=== PATIENT | male | born 1950 | race Caucasian/White ===

== ENCOUNTER → 2019-10-14 14:50 | Outpatient (BNVA) | payer OTHER, SELFPAY | PROVIDERS: Family Provider Nurse Practitioner Family; Visit Provider Specialist | DX: G40.209 Localization-related (focal) (partial) symptomatic epilepsy and epileptic syndromes with complex partial seizures, not intractable, without status epilepticus (principal); Z87.891 Personal history of nicotine dependence | CPT/HCPCS: 99214 ==

== ENCOUNTER 2020-10-13 13:08 | Inpatient (IN) | payer OTHER, MEDICARE, SELFPAY ==
[2020-10-13] VITALS (17 sets, daily range): BP systolic 97–153; BP diastolic 61–108; PULSE 72–100; RESP 14–21; TEMP 36.4–37.1; O2SAT 89–96; BMI 31.8
--- NOTE | 2020-10-13 13:38 | PM.HP ---
Providers/Chief Complaint Admitting Physician: James López MD Primary Care Provider: Gonzalo Linares ANP Chief Complaint: SEIZURES History of Present Illness Orion Varghese is a 70 year old male who presented to an outside emergency department in [place] with confusion. According to she found him this morning by the refrigerator, staring. She reported this behavior continued about 45 minutes until he decided to come to the emergency department. She does not remember any seizures earlier than this. The emergency department physician at [place] and told me she thought he had some staring episodes at other times but she did not vocalize this to me. She believes his last seizure may have been over a year ago. She believes he is compliant with medication he is prescribed, but cannot tell me what medication he is on. He has had no recent fevers. He has had no vomiting. He has had no exposure to Covid. While in the emergency department at [place] he perhaps had 3 more episodes manifested by jaw clenching, repetitive mouth movements, staring and confusion. He has not yet returned to normal. Patient cannot give any kind of adequate history himself. reports he drinks several mixed drinks a day, but potentially drank quite a bit more last night after going out with friends. Review of Systems General: Reports: ROS unobtainable due to mental status (Unable to obtain from the patient currently secondary to confusion) Medications/Allergies Home Medications Medication Instructions Recorded Confirmed Last Taken Type amlodipine 5 mg tablet 5 mg PO DAILY 10/14/19 10/14/19 Unknown History apixaban 5 mg tablet 5 mg PO BID 10/14/19 10/14/19 Unknown History budesonide-formoterol HFA 160 2 puff INHALATION BID 10/14/19 10/14/19 Unknown History mcg-4.5 mcg/actuation aerosol inhaler flecainide 50 mg tablet 50 mg PO Q12H 10/14/19 10/14/19 Unknown History levothyroxine 88 mcg capsule 88 mcg PO DAILY 10/14/19 10/14/19 Unknown History lisinopril 20 mg tablet 20 mg PO BID 10/14/19 10/14/19 Unknown History lorazepam 2 mg/mL oral concentrate 2 mg SUBLINGUAL DAILY PRN #30 ml 10/14/19 10/14/19 Unknown Rx melatonin 3 mg capsule 3 mg PO DAILY 10/14/19 10/14/19 Unknown History metoprolol tartrate 50 mg tablet 50 mg PO BID 10/14/19 10/14/19 Unknown History naproxen 500 mg tablet,delayed 500 mg PO BID 10/14/19 10/14/19 Unknown History release sildenafil 100 mg tablet 100 mg PO DAILY PRN 10/14/19 10/14/19 Unknown History levetiracetam 750 mg tablet 1,500 mg PO BID #120 tab 11/18/19 Unknown Rx zonisamide 100 mg capsule 400 mg PO DAILY #120 cap 11/18/19 Unknown Rx Allergies Allergy/AdvReac Type Severity Reaction Status Date / Time No Known Allergies Allergy Verified 10/14/19 15:14 PFSH Acute PFSH: Medical History (Updated 10/13/20 @ 13:57 by James López MD) Atrial fibrillation COPD (chronic obstructive pulmonary disease) Focal epilepsy with impairment of consciousness Hypertension Hypothyroidism Mild cognitive impairment Secondarily generalized seizures Surgical History (Updated 10/13/20 @ 13:44 by James López MD) History of hernia repair Family History Other Cancer Social History (Updated 10/13/20 @ 13:44 by James López MD) Smoking and tobacco status: former smoker Alcohol intake: current Alcohol intake frequency: 0-2 Drinks per Day Alcohol type: hard liquor Physical Exam Narrative: EXAM NARRATIVE: General exam is a white male, confused but in no obvious distress HEENT: Pupils equally round. Oropharynx clear Neck is supple no lymphadenopathy or thyromegaly Cardiovascular regular rate and rhythm, no murmur Lungs clear no wheezing or crackles Abdomen is soft. Positive bowel sounds. Large midline hernia. No obvious organomegaly was deferred Extremities no cyanosis clubbing or edema, cap refill brisk Skin no rash Neuro: Difficulty following directions. This is limited. However, moves all 4 extremities and no obvious focal deficits. Confusion noted. Data : 10/13/20 14:20 10/13/20 14:20 Other data: He reportedly has had a CT of his head which is negative for any acute changes or bleeding Hemoglobin 19.7, platelets 177, white blood cell count 11.3, LFTs normal, calcium 9.9, creatinine 1.7, potassium 4.9, sodium 139, rapid Covid negative A&P Assessment and plan (1) Focal epilepsy with impairment of consciousness: He apparently had onset of seizure this morning. He has had no generalized shaking however consciousness has been impaired and he has not returned to baseline and has had several episodes concerning for status. At this time it is unknown if he is compliant with his seizure medications. Alcohol intake last night could have also reduce seizure threshold. Initiate Keppra IV 1000 mg every 12 hours Initiate Depacon IV x1 dose. Neurology consultation. They will determine if medicines above will be continued, and if Depacon should be continued or transition back to [facility]. As far as knows he has been compliant with his medication, but he manages all of this himself. Status: Acute (2) Polycythemia: Hemoglobin and hematocrit high at outlying hospital. May be lab error or hemoconcentration. Will repeat. He does have a past history of smoking, and if significantly elevated could consider ABG. Status: Acute (3) Atrial fibrillation: Exam is consistent with sinus rhythm. Check EKG for baseline heart rate. Hold anticoagulation until determination if any procedures are needed Evaluate home medicine list to determine if he is still on flecainide for atrial fibrillation Status: Acute (4) COPD (chronic obstructive pulmonary disease): DuoNeb as needed Status: Acute Additional A&P Information Hypothyroidism, check TSH Hypertension, continue home medications Full code Is on Eliquis, presumably for A. fib. SCDs for DVT prophylaxis currently until I am sure no procedure will be needed and then Eliquis will resume. Attestations Medical Necessity Statement*: Will need greater than 2 midnight stay for evaluation and treatment of seizure disorder with status. Time Spent in Patient Care: Greater than 35 minutes Critical Care Time: The high probability of a clinically significant, sudden or life threatening deterioration of the patient's [neurologic, hematologic] system(s) required my full and direct attention, intervention and personal management. The critical care time is as shown. This time is in addition to time spent performing any reported procedures but includes the following: [x] Data and vital sign review and interpretation [x] Patient assessment, examination and intervention [x] Documentation [x] Medication orders and management Critical Care Time (min): 42 Coding Level of Care Code Acute Regional Safety Manager for [facility] Diagnoses Focal epilepsy with impairment of consciousness G40.209 Polycythemia D75.1 Atrial fibrillation I48.91 COPD (chronic obstructive pulmonary disease) J44.9
--- NOTE | 2020-10-13 13:50 | ECG_ITS ---
[facility] Test Date: 2020-10-13 Pat Name: Orion Varghese Department: Room: [facility] Gender: Male Catering Sales Manager: : 1950 Requested By: James Griffith Order Number: [id number] Kevin MD: Destiny Bryan M.D. Measurements Intervals [place] Rate: 98 P: -19 LA: 149 QRS: 73 QRSD: 117 T: 62 QT: 351 QTc: 449 Interpretive Statements SINUS RHYTHM WITH OCCASIONAL SUPRAVENTRICULAR PREMATURE COMPLEXES MODERATE INTRAVENTRICULAR CONDUCTION DELAY [110+ ms QRS DURATION] No previous ECG available for comparison Electronically Signed On 10-13-2020 19:27:16 CDT by Destiny Bryan M.D. [id number]
[2020-10-13] MEDS: sodium chloride 0.9% 1,000 ML 75 ML IV (13:52)
[2020-10-13] MEDS: valproic acid inj 1,000 MG in sodium chloride 0.9% 50 ML 55 MG IV (13:57)
[2020-10-13 14:44] LABS: Basophils % 0.3 %; Eosinophils # 0.1 10^3/uL (0.0-0.8); Eosinophils % 0.5 %; Hematocrit 57.4 % (42.0-52.0); Hemoglobin 18.8 g/dL (11.7-16.6); Lymphocytes # 0.8 10^3/uL (0.8-4.8); Lymphocytes % 7.7 %; Mean Corpuscular HGB Conc 32.8 g/dL (30.0-36.0); Mean Corpuscular Hemoglobin 31.1 pg (28.0-34.0); Mean Platelet Volume 10.1 fL (7.4-10.4); Monocytes # 0.9 10^3/uL (0.2-0.9); Monocytes % 9.1 %; Neutrophils # 8.39 10^3/uL (1.8-7.7); Nucleated Red Blood Cells % 0 %; Platelet Count 174 10^3/cmm (130-400); Red Blood Count 6.04 10^6/uL (4.1-5.3); Red Cell Distribution Width 13.8 % (12.1-15.1); White Blood Count 10.2 10^3/uL (4.0-10.0)
[2020-10-13 16:00] LABS: Alanine Aminotransferase 21 U/L (0-41); Albumin Level 4.3 g/dL (3.5-5.2); Alkaline Phosphatase 74 IU/L (40-130); Anion Gap 13.3 (5-19); Aspartate Amino Transferase 18 U/L (0-40); Blood Urea Nitrogen 23 mg/dL (8-23); Calcium 9.2 mg/dL (8.5-10.5); Carbon Dioxide 24 mmol/L (22-29); Chloride 104 mmol/L (98-107); Globulin 2.7 g/dL (1.3-4.6); Glomerular Filtration Rate 50.2 mL/min (90-130); Glucose 108 mg/dL (65-115); Osmolality Calculated 288 mOsm/kg (285-295); Potassium 4.3 mmol/L (3.5-5.1); Sodium 137 mmol/L (136-145); Thyroid Stimulating Hormone 1.41 uIU/mL (0.27-4.20); Total Bilirubin 0.7 mg/dL (0.15-1.2)
[2020-10-13] MEDS: metoprolol tartrate 50 mg Tablet PO (17:16)
[2020-10-13] MEDS: flecainide 100 mg Tablet 50 MG PO (17:17)
--- NOTE | 2020-10-13 19:11 | P.CONIM_ITS ---
Providers/Reason For Consult Consulting Physican/Specialty*: James López Reason for Consult*: Seizures out of control Attending Physician: James López MD Primary Care Provider: Gonzalo Linares History of Present Illness History of Present Illness Orion Varghese is a 70 year old man that I saw once a year ago. He had a history of prolonged encephalopathy after multiple generalized tonic-clonic seizures for which she was hospitalized at [facility] in early 2017. He did well on Keppra 2000 mg a day until he had another seizure in May 2018 and at that point his Keppra was increased to 3000 mg a day. He did fine until he went into partial status epilepticus in September 2019 and spent 2 days at [facility]. He said that he had not missed any of his doses of Keppra 3000 mg a day. He drove himself to his appointment with me in October 2019. His previous MRI from August 2018 showed diffuse white matter changes. That study was consistent with his history of heavy smoking. I started him on zonisamide, titrating to 400 mg a day, and I have not heard from him since. Dr. López called me today because the patient presented to [facility] with multiple seizures consisting of staring. While he was at [facility] he was seen to have episodes of jaw clenching, repetitive oral movements and confusion. He was still confused when he arrived here. His said that he is compliant on his medications. Presumably he has been getting prescriptions from his family physician. He consumes some alcohol at home. On arrival he received 1000 mg of Keppra and 1000 mg of Depacon IV. His laboratory exam is remarkable for elevated white count and his hemoglobin and hematocrit are also high with an MCV of 95. He may be a little dry, as his creatinine was 1.4. TSH was normal and his CMP was normal with normal liver enzymes. He had a CT scan of the head at [facility] that was reportedly normal. He is on apixaban for atrial fibrillation. Review of Systems General: Reports: 10 or more systems reviewed and unremarkable except in HPI and below Meds/Allergies Home Medications and Allergies Home Medications Medication Instructions Recorded Confirmed Last Taken Type amlodipine 5 mg tablet 5 mg PO DAILY 10/14/19 10/14/19 Unknown History apixaban 5 mg tablet 5 mg PO BID 10/14/19 10/14/19 Unknown History budesonide-formoterol HFA 160 2 puff INHALATION BID 10/14/19 10/14/19 Unknown History mcg-4.5 mcg/actuation aerosol inhaler flecainide 50 mg tablet 50 mg PO Q12H 10/14/19 10/14/19 Unknown History levothyroxine 88 mcg capsule 88 mcg PO DAILY 10/14/19 10/14/19 Unknown History lisinopril 20 mg tablet 20 mg PO BID 10/14/19 10/14/19 Unknown History lorazepam 2 mg/mL oral concentrate 2 mg SUBLINGUAL DAILY PRN #30 ml 10/14/19 10/14/19 Unknown Rx melatonin 3 mg capsule 3 mg PO DAILY 10/14/19 10/14/19 Unknown History metoprolol tartrate 50 mg tablet 50 mg PO BID 10/14/19 10/14/19 Unknown History naproxen 500 mg tablet,delayed 500 mg PO BID 10/14/19 10/14/19 Unknown History release sildenafil 100 mg tablet 100 mg PO DAILY PRN 10/14/19 10/14/19 Unknown History levetiracetam 750 mg tablet 1,500 mg PO BID #120 tab 11/18/19 Unknown Rx zonisamide 100 mg capsule 400 mg PO DAILY #120 cap 11/18/19 Unknown Rx Allergies Allergy/AdvReac Type Severity Reaction Status Date / Time No Known Allergies Allergy Verified 10/14/19 15:14 Current Medications Current Medications Generic Name Dose Route Start Last Admin Trade Name Freq PRN Reason Stop Dose Admin Flecainide Acetate 50 mg 10/13/20 17:00 10/13/20 17:17 Flecainide 100 Mg Tablet PO 50 mg Q12H PRIYA Administration Sodium Chloride 1,000 mls @ 75 mls/hr 10/13/20 13:30 10/13/20 13:52 Sodium Chloride 0.9% IV 75 mls/hr .[id number] PRIYA Administration Levetiracetam 1,000 mg/ Sodium 110 mls @ 440 mls/hr 10/13/20 14:00 10/13/20 14:21 Chloride IV Infused Q12H PRIYA Infusion Metoprolol Tartrate 50 mg 10/13/20 18:00 10/13/20 17:16 Metoprolol Tartrate 50 Mg Tablet PO 50 mg BID PRIYA Administration PFSH Acute PFSH: Medical History Atrial fibrillation COPD (chronic obstructive pulmonary disease) Focal epilepsy with impairment of consciousness Hypertension Hypothyroidism Mild cognitive impairment Secondarily generalized seizures Surgical History History of hernia repair Family History Other Cancer Social History Smoking and tobacco status: former smoker Alcohol intake: current Alcohol intake frequency: 0-2 Drinks per Day Alcohol type: hard liquor Vitals/I&O/Wt Last Vital Signs Temp 98.7 F 10/13/20 18:00 Pulse 100 10/13/20 18:00 Resp 17 10/13/20 18:00 BP 149/96 10/13/20 18:00 Pulse Ox 96 10/13/20 18:00 10/13/20 10/13/20 10/13/20 06:59 14:59 22:59 Intake Total 110 / 110 60 / 170 Balance 110 / 110 60 / 170 Weight last 48 hrs Weight 241 lb 1.6 oz Physical Exam Narrative: EXAM NARRATIVE: GENERAL: The patient was well-nourished with a healthy appearance and appropriately groomed. MENTAL STATUS: Moderately severe receptive aphasia with agitation and frustration CRANIAL NERVES: Visual lieberman were full to threal. Extraocular movements were full without nystagmus. PERRLA. Face was symmetric at rest and with grimace. Facial sensation was intact in all three distributions of the fifth cranial nerve bilaterally to touch. Tongue and palate were midline at rest and with protrusion of the tongue and elevation of the palate. Shoulders were symmetric at rest and with shoulder shrug. MOTOR: He moves all 4 extremities vigorously SENSATION: Pin, touch and vibration were intact in the four extremities distally. COORDINATION: No cerebellar signs DEEP TENDON REFLEXES: 2/4 throughout. GAIT: Not tested CARDIOVASCULAR: The heart sounds were normal without murmur or gallop. Regular rate and rhythm. A&P Assessment and plan (1) Focal epilepsy with impairment of consciousness: He had multiple focal seizures and now has postictal receptive aphasia. He has already been treated with intravenous Keppra and 1 dose of Depacon. Plan to increase Zonegran to 500 mg. I will talk with his tomorrow but I think he can go home in the morning if he is making sense. I suspect that all of his current findings are postictal. We can do an EEG either inpatient or outpatient depending on how he is doing in the morning. Status: Acute Consult Attestations Medical Necessity Statement: Multiple focal seizures and profound postictal confusion Time Spent in Patient Care: Greater than 35 minutes (>than 50% of time spent in counselling and/or direct pt care on unit) . Coding Level of Care Code Acute Sheet Metal Erector for [facility] Diagnoses Focal epilepsy with impairment of consciousness G40.209
[2020-10-13] MEDS: budesonide 0.5 mg/2 mL Neb INHALATION (20:14)
[2020-10-13] MEDS: ipratropium-albuterol 3 mL Neb INHALATION (20:14)
[2020-10-13] MEDS: zonisamide 100 MG Capsule 500 MG PO (20:54)
[2020-10-14] VITALS (29 sets, daily range): BP systolic 102–156; BP diastolic 61–127; PULSE 73–103; RESP 14–36; TEMP 36.4–36.8; O2SAT 90–95
[2020-10-14] MEDS: sodium chloride 0.9% 1,000 ML 75 ML IV ×2 (02:02→17:08)
[2020-10-14 04:41] LABS: Bilirubin Urine Neg (Negative); Blood Urine Neg (Negative); Glucose Urine UA Norm (Normal); Ketones Urine Negative (Negative); Nitrate Urine Negative (Negative); Protein Urine Neg (Negative); Urine Appearance Clear (CLEAR); Urine Color Yellow (Yellow); pH Urine 7 (5-7)
[2020-10-14 04:42] LABS: Add Urine Culture? No; Leukocyte Esterase Urine Negative (Negative); RBC Urine 0-4 /hpf (0-2); Squamous Epithelial Cell Urine RARE /hpf (0-5); Urobilinogen Urine Norm (Negative); WBC Urine 0-4 /hpf (0-5)
[2020-10-14] MEDS: flecainide 100 mg Tablet 50 MG PO (05:01)
[2020-10-14 05:37] LABS: Basophils % 0.4 %; Eosinophils # 0.1 10^3/uL (0.0-0.8); Eosinophils % 1.6 %; Hematocrit 56.3 % (42.0-52.0); Hemoglobin 18.5 g/dL (11.7-16.6); Lymphocytes # 1.2 10^3/uL (0.8-4.8); Lymphocytes % 14.5 %; Mean Corpuscular HGB Conc 32.9 g/dL (30.0-36.0); Mean Corpuscular Hemoglobin 31.7 pg (28.0-34.0); Mean Corpuscular Volume 96.6 fL (80-94); Mean Platelet Volume 10.4 fL (7.4-10.4); Monocytes # 1.1 10^3/uL (0.2-0.9); Monocytes % 13.7 %; Neutrophils # 5.62 10^3/uL (1.8-7.7); Neutrophils % 69.4 %; Nucleated Red Blood Cells % 0 %; Platelet Count 173 10^3/cmm (130-400); Red Blood Count 5.83 10^6/uL (4.1-5.3); Red Cell Distribution Width 13.6 % (12.1-15.1); White Blood Count 8.1 10^3/uL (4.0-10.0)
[2020-10-14 05:56] LABS: Alanine Aminotransferase 18 U/L (0-41); Albumin Level 3.8 g/dL (3.5-5.2); Alkaline Phosphatase 64 IU/L (40-130); Anion Gap 10.3 (5-19); Aspartate Amino Transferase 18 U/L (0-40); Blood Urea Nitrogen 22 mg/dL (8-23); Carbon Dioxide 22 mmol/L (22-29); Chloride 107 mmol/L (98-107); Globulin 2.4 g/dL (1.3-4.6); Glomerular Filtration Rate 54.7 mL/min (90-130); Glucose 86 mg/dL (65-115); Osmolality Calculated 283 mOsm/kg (285-295); Potassium 4.3 mmol/L (3.5-5.1); Sodium 135 mmol/L (136-145); Total Bilirubin 0.9 mg/dL (0.15-1.2); Total Protein 6.2 g/dL (6.6-8.7)
[2020-10-14] MEDS: budesonide 0.5 mg/2 mL Neb INHALATION ×2 (07:27→19:32)
[2020-10-14] MEDS: ipratropium-albuterol 3 mL Neb INHALATION ×2 (07:27→19:32)
[2020-10-14] MEDS: zonisamide 100 MG Capsule 500 MG PO (08:21)
[2020-10-14] MEDS: folic acid 1 mg Tablet PO (08:21)
[2020-10-14] MEDS: thiamine 100 mg Tablet PO (08:22)
[2020-10-14] MEDS: levothyroxine 88 mcg Tablet PO (08:22)
[2020-10-14] MEDS: metoprolol tartrate 50 mg Tablet PO (08:22)
[2020-10-14] MEDS: aspirin 325 mg Tablet PO (08:44)
[2020-10-14] MEDS: enoxaparin 40 mg/0.4 mL Syringe SUBCUT (08:44)
[2020-10-14 09:02] LABS: Chol HDL Ratio 2.88 mg/dL (1.0-5.00); Cholesterol 144 mg/dL (0-200); HDL Cholesterol 50 mg/dL (60-100); LDL Cholesterol Calculated 76 mg/dL (50-129); LDL HDL Ratio 1.52 RATIO (0.00-3.22); Triglycerides 90 mg/dL (0-150)
[2020-10-14] MEDS: LORazepam 2 mg/mL INJ 1 mL IVP ×4 (09:29→23:59)
--- NOTE | 2020-10-14 10:52 | PC.PHAR ---
PT UNABLE TO VERIFY MEDICATIONS-PTS STATES THE PT TAKES CARE OF HIS OWN MEDICATIONS-MEDICATIONS ENTERED ARE MEDS THAT WERE ON THE PTS [facility] MED LIST
[2020-10-14] MEDS: OLANZapine 10 mg VIAL 5 MG IM (11:13)
[2020-10-14] MEDS: water for injection-sterile 10 ML (11:14)
--- NOTE | 2020-10-14 11:29 | PC.OT ---
OT EVALUATION ATTEMPTED. PATIENT IS YELLING AND AGITATED AT THIS TIME. 1:1 SITTER, NURSING, RESPIRATORY THERAPY AND FAMILY ARE IN ROOM AT THIS TIME. WILL ATTEMPT AGAIN AT A LATER TIME.
--- NOTE | 2020-10-14 12:07 | P.FTFBREST_ITS ---
Face to Face: Restrn/Seclusion Events leading up to initiation: Verbalizing threat to self or others Evaluation of patient's immediate situation: No signs of physical distress and Signs of psychological distress (agitation) Patient reaction since intervention applied: Behaviors/threats have lessened, b ut still present Recent labs reviewed: Yes Review of medications: Yes Patient's current medical/behavioral condition: No new concerns since last ROS Need for restraint or seclusion is: Continued Attending notified: Yes
--- NOTE | 2020-10-14 12:09 | PM.PN ---
Subjective Subjective: Interval history: Alert this morning, but still with significant aphasia. Lots of word substitution. Was able to follow commands without difficulty, but since then became agitated. Nursing has given some Ativan, and a dose of Zyprexa was given. Secondary to agitation with threats of physical violence 1 dose of Zyprexa was given. Medications: Reviewed: Yes Vitals/I&O/Wt Last Vital Signs Temp 98.2 F 10/14/20 10:00 Pulse 80 10/14/20 10:00 Resp 18 10/14/20 10:00 BP 122/83 10/14/20 10:00 Pulse Ox 94 10/14/20 10:00 10/13/20 10/14/20 10/14/20 22:59 06:59 14:59 Intake Total 60 / 170 1022.5 / 1192.5 Output Total 150 / 150 650 / 800 Balance - 372.5 / 392.5 Weight last 48 hrs Weight 111.402 kg Weight 109.361 kg Physical Exam Narrative: EXAM NARRATIVE: General exam is a white male, able to follow directions this morning. Neck is supple no lymphadenopathy or thyromegaly Cardiovascular regular rate and rhythm, no murmur Lungs clear no wheezing or crackles Abdomen is soft. Positive bowel sounds. Large midline hernia. No obvious organomegaly Extremities no cyanosis clubbing or edema, cap refill brisk Neurologic: Aphasia noted. No obvious focal deficits. Data : 10/14/20 05:11 10/14/20 05:11 A&P Assessment and plan (1) Focal epilepsy with impairment of consciousness: He apparently had onset of seizure this morning. He has had no generalized shaking however consciousness has been impaired and he has not returned to baseline and has had several episodes concerning for status. At this time it is unknown if he is compliant with his seizure medications. Alcohol intake last night could have also reduce seizure threshold. Continue Keppra IV 1000 mg every 12 hours Received Depacon IV x1 dose. Neurology has started Zonegran 500 mg p.o. daily Appreciate neurologic consultation As far as knows he has been compliant with his medication, but he manages all of this himself. EEG planned for today Some agitation has occurred this morning. This is consistent with acute encephalopathy. With history of alcohol intake must consider withdrawal. Status: Acute (2) Polycythemia: Hemoglobin and hematocrit slightly high. Check ABG Status: Acute (3) Atrial fibrillation: Exam is consistent with sinus rhythm. EKG demonstrated this as well Evaluate home medicine list to determine if he is still on flecainide for atrial fibrillation Status: Acute (4) COPD (chronic obstructive pulmonary disease): DuoNeb as needed Status: Acute Additional A&P Information Hypothyroidism,TSH checked and normal Hypertension, continue home medications History of daily alcohol intake. Thiamine, folate, CIWA protocol Full code Lovenox for DVT prophylaxis. Was on Eliquis as an outpatient. Consider restarting this if no surgical procedures/interventions are needed Attestations Medical Necessity Statement*: Needs continued hospitalization for close monitoring secondary to recurrent seizures, agitation, encephalopathy. Critical Care Time: Critical Care Time (min): 31 Other Attestations: The high probability of a clinically significant, sudden or life threatening deterioration of the patient's [neurologic, cardiac] system(s) required my full and direct attention, intervention and personal management. The critical care time is as shown. This time is in addition to time spent performing any reported procedures but includes the following: [x] Data and vital sign review and interpretation [x] Patient assessment, examination and intervention [x] Documentation [x] Medication orders and management Coding Level of Care Code Acute [employer] Set Up Technician for [facility] Diagnoses Focal epilepsy with impairment of consciousness G40.209 Polycythemia D75.1 Atrial fibrillation I48.91 COPD (chronic obstructive pulmonary disease) J44.9
[2020-10-14] MEDS: LORazepam 2 mg/mL INJ 1 mL 1 MG IVP (12:10)
--- NOTE | 2020-10-14 12:52 | PM.MISC ---
Miscellaneous Note Purpose of Documentation: EEG, bedside Note: ORDERING PHYSICIAN: James López MD. REASON FOR STUDY: Rule out subclinical status epilepticus. STUDY: This was a 21 channel digital electroencephalogram performed using the 10-20 international system of electrode placement. This study was performed at the bedside in ICU. The cryptologic technician technical indicates that the patient was agitated. There was constant movement artifact and scalp artifact as well as multiple electrical artifacts from the IV, etc. The right frontal leads were incompetent throughout. FINDINGS: The waking background was low voltage fast activity with superimposed mixture of theta and overlying fast activity.No focal or epileptiform activity was seen. The patient did not appear drowsy nor did he fall asleep. IMPRESSION: There was no sign of subclinical status epilepticus. The quality of the tracing was very poor owing to the patient's agitation and artifact from intensive care unit but based upon this study, patient does not appear to be in status epilepticus and there were no focal findings. Duration of EE.1
--- NOTE | 2020-10-14 13:35 | PC.NURSE ---
attempted to Call [facility] for med rec for pt. No answer at this time. Left voicemail o return call. will notify Dr. López.
[2020-10-14 14:10] LABS: ABG PCO2 31.4 mmHg (35-45); ABG PH Result 7.39 (7.35-7.45); Arterial Blood Gas Hematocrit 57.7 % (42-52); Base Excess ABG -4.6 mmol/L (-2.0-2.0); Blood Gas Allen Test Pos; Blood Gas Sample Site Radial, right; Blood Gas Sample Type Arterial; HCO3 ABG 18.9 mmol/L (22-26); PO2 ABG 59.9 mmHg (80.0-100.0)
[2020-10-14 14:11] LABS: Oxygen Device NC
--- NOTE | 2020-10-14 14:59 | XR_ITS ---
WS: [id number] Portable AP supine chest, 10/14/2020 Clinical Data: hypoxia Comparison: None. Findings: There is minimal patchy opacity in the right lower lobe which could represent minimal pneum onia and/or atelectasis. No nodules, masses or effusions are seen. The heart is enlarged. The pulmona ry vascularity is not increased. No pneumothorax is seen. The aortic arch and descending aorta are to rtuous. Monitor leads are on the chest wall. XR/XR chest 1V portable [id number] Impression: 1. Minimal patchy opacity in right lower lobe which could indicate pneumonia an d/or atelectasis. 2. Atherosclerosis and cardiomegaly.
--- NOTE | 2020-10-14 15:03 | PC.PT ---
PT EVALUATION ATTEMPTED. PATIENT IS YELLING AND AGITATED AT THIS TIME.11:10 AM 1:1 SITTER, NURSING, RESPIRATORY THERAPY AND FAMILY ARE IN ROOM AT THIS TIME. WILL ATTEMPT AGAIN AT A LATER TIME.
--- NOTE | 2020-10-14 16:58 | PC.SLP ---
Patient was not evaluated per nursing request. Patient has been agitated requiring sedation. Nursing reported patient was given oral medications with water and no overt signs/symptoms of aspiration were noted. Will continue to monitor and evaluate whe patient is able to fully and safely participate in his evaluation.
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
[2020-10-14] MEDS: piperacillin-tazobactam 3.375 GM in sodium chloride 0.9% (plus) 50 ML IV (19:52)
[2020-10-15] VITALS (29 sets, daily range): BP systolic 104–150; BP diastolic 72–103; PULSE 69–101; RESP 0–44; TEMP 36.6–37.7; O2SAT 91–97
[2020-10-15] MEDS: piperacillin-tazobactam 3.375 GM in sodium chloride 0.9% (plus) 50 ML IV ×3 (02:25→18:10)
[2020-10-15 03:43] LABS: Basophils % 0.3 %; Eosinophils % 0.3 %; Hematocrit 56.4 % (42.0-52.0); Lymphocytes # 0.8 10^3/uL (0.8-4.8); Lymphocytes % 5.6 %; Mean Corpuscular HGB Conc 33.7 g/dL (30.0-36.0); Mean Corpuscular Hemoglobin 31.9 pg (28.0-34.0); Mean Corpuscular Volume 94.6 fL (80-94); Mean Platelet Volume 10.3 fL (7.4-10.4); Monocytes # 1.7 10^3/uL (0.2-0.9); Monocytes % 12.6 %; Neutrophils # 10.74 10^3/uL (1.8-7.7); Neutrophils % 80.9 %; Nucleated Red Blood Cells % 0 %; Platelet Count 182 10^3/cmm (130-400); Red Blood Count 5.96 10^6/uL (4.1-5.3); Red Cell Distribution Width 13.3 % (12.1-15.1); White Blood Count 13.3 10^3/uL (4.0-10.0)
[2020-10-15 03:55] LABS: Blood Urea Nitrogen 26 mg/dL (8-23); Calcium 9.1 mg/dL (8.5-10.5); Carbon Dioxide 21 mmol/L (22-29); Chloride 104 mmol/L (98-107); Glomerular Filtration Rate 46.4 mL/min (90-130); Glucose 77 mg/dL (65-115); Osmolality Calculated 288 mOsm/kg (285-295); Sodium 137 mmol/L (136-145)
[2020-10-15 04:06] LABS: Creatinine Clr Calc Pharmacy 60.8107
[2020-10-15] MEDS: sodium chloride 0.9% 1,000 ML 75 ML IV (04:36)
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
--- NOTE | 2020-10-15 07:00 | CT_ITS ---
WS: [id number] CT HEAD NONCONTRAST HISTORY: receptive aphasia TECHNIQUE: Contiguous axial imaging performed through the brain in 2.5 mm imaging. Bone and soft tiss ue windows. Sagittal and coronal reformats reviewed. All CT scans at [facility] use at le ast one of these dose optimization techniques: automated exposure control; mA and/or kV adjustment pe r patient size (includes targeted exams where dose is matched to clinical indication); or iterative r econstruction. DLP: 1755.97 mGy.cm COMPARISON: MRI brain 08/16/2018 No acute intracranial hemorrhage, midline shift or mass effect. Severe bilateral atrophy and severe chronic microvascular ischemic type changes. These findings were described on a prior MRI from 08/16/2018. Small lacunar infarcts in the RIGHT basal ganglia. There is also mild bilateral cerebellar atrophy. Ventricles: Normal size with no hydrocephalus. Paranasal sinuses: Small amount mucoperiosteal thickening in the posterior RIGHT ethmoid air cells. Mastoid air cells: Well pneumatized. Calvarium and scalp: Skull is intact with no soft tissue edema or swelling. Atherosclerosis intracranial carotid arteries. CT/CT head wo con* [id number] IMPRESSION: 1. No acute intracranial hemorrhage or edema. 2. Cerebral cerebellar atrophy with severe chronic microvascular ischemic type changes in the white matter. Similar to the prior MRI from 2018.
[2020-10-15] MEDS: ipratropium-albuterol 3 mL Neb INHALATION (08:11)
[2020-10-15] MEDS: budesonide 0.5 mg/2 mL Neb INHALATION (08:11)
[2020-10-15] MEDS: metoprolol tartrate 50 mg Tablet PO ×2 (08:23→18:07)
[2020-10-15] MEDS: aspirin 325 mg Tablet PO (08:23)
[2020-10-15] MEDS: folic acid 1 mg Tablet PO (08:23)
[2020-10-15] MEDS: thiamine 100 mg Tablet PO (08:23)
[2020-10-15] MEDS: levothyroxine 100 mcg Tablet PO (08:23)
[2020-10-15] MEDS: zonisamide 100 MG Capsule 500 MG PO (08:23)
[2020-10-15] MEDS: enoxaparin 40 mg/0.4 mL Syringe SUBCUT (08:28)
[2020-10-15] MEDS: OLANZapine 10 mg VIAL IM (08:29)
--- NOTE | 2020-10-15 09:19 | PC.CHAP ---
Pastoral Care Encounter/Spiritual Assessment Type of Contact [] Declined compensation adjuster visit [] Patient/Family/Request visit [] Outpatient visit [] Follow-up visit [] Physician referral [] Code/Alert [x] Routine visit [] Staff referral [] Actively dying [] Patient sleeping [] Family support [] [] Out of room [] Palliative care [] [] Receiving care in room [] Pre-surgical visit [] Trauma [] Long length of stay [x] ICU visit [] Other: Relational/Emotional Strength [] Patient feels connected with others/family/visitors/staff [] Distress [] Loneliness/isolation [] Abandonment Spirituality of Patient [] Person of Carrie [] Attends Temple of their [place] [] Believes in Prayer [] Reads Bible or Hindu materials [] There are Spiritual issues to be addressed Business Transformation Consultant Interventions [x] Prayer [] Active listening [] Non-anxious presence [] Spiritual/emotional support [] Crisis/trauma care [] Spiritual counseling [] Bereavement support [] Provided bereavement packet [] Provided Bible/devotional materials [] Provided toy/stuffed animal, coloring book to patient or family member [] Provided Communion [] Anointing/[place] [] Salvation [x] Completed spiritual assessment [] Other: Impact on Illness or Injury [] Angry [] Fearful [] Anxious [] Often cries [] Exhaustion [] Unable to work [] Unable to attend pentecostal [] Unable to walk/stand [] Unable to read [] Unable to drive [] Unable to eat/drink [] Unable to sleep [] Unable to be with family [] Patient intubated [] Other: Summary Time spent with patient
--- NOTE | 2020-10-15 11:01 | PM.PN ---
Subjective Subjective: Interval history: Orion is sedated this morning. I was able to visit with neurology regarding this case last night, and a CT scan is planned. Medications: Reviewed: Yes Vitals/I&O/Wt Last Vital Signs Temp 99.1 F 10/15/20 04:00 Pulse 98 10/15/20 08:14 Resp 16 10/15/20 08:11 BP 132/95 10/15/20 06:00 Pulse Ox 97 10/15/20 08:11 10/14/20 10/15/20 10/15/20 22:59 06:59 14:59 Intake Total 1000 / 1111 1180 / 2291 Output Total 650 / 950 325 / 1275 Balance 350 / 161 855 / 1016 Weight last 48 hrs Weight 108.318 kg Weight 111.402 kg Weight 109.361 kg Physical Exam Narrative: EXAM NARRATIVE: General exam is a white male, sedated currently Neck is supple no lymphadenopathy or thyromegaly Cardiovascular regular rate and rhythm, no murmur Lungs clear no wheezing or crackles. Tachypneic Abdomen is soft. Positive bowel sounds. Large midline hernia. No obvious organomegaly Extremities no cyanosis clubbing or edema, cap refill brisk Neurologic: Sedated. Moves all four extremities. Urinary Catheter Management^: Arango: Cath Placed During This Visit: yes Reason for Continuing Indwelling Catheter: Accurate Measurement of Urinary Output in Critically Ill Patients Urinary Catheter Date of Insertion: 10/14/20 Urinary Catheter Time of Insertion: 13:17 Data : 10/15/20 03:01 10/15/20 03:01 A&P Assessment and plan (1) Focal epilepsy with impairment of consciousness: He apparently had onset of seizure the morning of admission. He has had no generalized shaking however consciousness has been impaired and he has not returned to baseline and has had several episodes concerning for status. At this time it is unknown if he is compliant with his seizure medications. Alcohol intake last night could have also reduce seizure threshold. Continue Keppra IV 1000 mg every 12 hours. He received a extra dose per neurology yesterday Received Depacon IV x1 dose. Neurology has started Zonegran 500 mg p.o. daily Appreciate neurologic consultation As far as knows he has been compliant with his medication, but he manages all of this himself. EEG was performed yesterday demonstrating no current seizure activity Some agitation has occurred this morning. This is consistent with acute encephalopathy. With history of alcohol intake must consider withdrawal. CIWA protocol was initiated. Neurology also started Zyprexa 10 mg twice daily scheduled Status: Acute (2) Polycythemia: Hemoglobin and hematocrit slightly high. ABG was checked and no significant CO2 retention. I suspect he has history of chronic hypoxia from tobacco use Status: Acute (3) Atrial fibrillation: Exam is consistent with sinus rhythm. EKG demonstrated this as well Continue metoprolol. Discontinue flecainide. I do not believe he is currently still on this medicine at home. Status: Acute (4) COPD (chronic obstructive pulmonary disease): DuoNeb as needed Secondary to tachypnea chest x-ray was performed. This demonstrates an infiltrate in his right lung, right lower lobe. With his encephalopathy that has continued, concern of withdrawal, increasing white blood cell count aspiration pneumonitis must be considered. Zosyn was started yesterday secondary to this reason. Status: Acute Additional A&P Information Acute encephalopathy, consistent with post seizure phenomenon in this patient who had multiple seizures prior to arrival. Cannot rule out a component of alcohol withdrawal. History of alcohol use. Continue thiamine, folate Hypothyroidism,TSH checked and normal Hypertension, continue home medications History of daily alcohol intake. Thiamine, folate, CIWA protocol Full code Placed on therapeutic Lovenox to substitute for Eliquis he was on at home. Hydration with normal saline secondary to encephalopathy as oral intake is poor. Attestations Medical Necessity Statement*: Needs continued hospitalization, in the ICU secondary to acute encephalopathy, possible postictal state, seizure disorder, concern for aspiration pneumonia requiring IV antibiotics. Critical Care Time: Critical Care Time (min): 35 Other Attestations: The high probability of a clinically significant, sudden or life threatening deterioration of the patient's [pulmonary, neurologic] system(s) required my full and direct attention, intervention and personal management. The critical care time is as shown. This time is in addition to time spent performing any reported procedures but includes the following: [x] Data and vital sign review and interpretation [x] Patient assessment, examination and intervention [x] Documentation [x] Medication orders and management Coding Level of Care Code Acute Infant Toddler Lead Teacher for Debra Fwd Diagnoses Focal epilepsy with impairment of consciousness G40.209 Polycythemia D75.1 Atrial fibrillation I48.91 COPD (chronic obstructive pulmonary disease) J44.9
--- NOTE | 2020-10-15 11:08 | PC.OT ---
OT NOTE: OT EVALUATION ATTEMPTED THIS A.M. PATIENT IS SLEEPING SOUNDLY AND NURSE REQUESTS TO HOLD THIS A.M. WILL ATTEMPT AGAIN AT A LATER TIME.
--- NOTE | 2020-10-15 14:58 | PC.PT ---
Nursing requests hold PT evaluation, and allow patient to sleep today, patient still sleeping at 14:30,, visited briefly with patient spouse she states patient, normally independent with transfers and ambulation without difficulty, only getting short of breath sometimes due to COPD: Will reattempt evaluation tomorrow
[2020-10-15] MEDS: OLANZapine 10 mg TABLET PO (18:07)
[2020-10-15] MEDS: sodium chloride 0.9% 1,000 ML 100 ML IV (18:10)
--- NOTE | 2020-10-15 18:36 | PC.NURSE ---
Shift summary: Pt remains confused throughout the day. It has improved. He does answer questions appropriately and caring on conversations now. He has rested in bed with his eyes closed this afternoon, snoring respirations noted. He would follow some directions at end of shift. He still wants to reach for lines and wires and pull, restraints remain on. He took his PO meds today without difficulty. Head CT had no acute findings. sat at bedside most of afternoon. Dr Mccallum, in room , this evening, explained post ictal to her, she needed reinforcement.
[2020-10-15] MEDS: enoxaparin 100 mg/mL Syringe SUBCUT (19:14)
[2020-10-15] MEDS: LORazepam 2 mg/mL INJ 1 mL IVP (23:08)
[2020-10-16] VITALS (33 sets, daily range): BP systolic 104–187; BP diastolic 67–151; PULSE 67–98; RESP 14–42; TEMP 36.3–37.1; O2SAT 91–97
[2020-10-16] MEDS: sodium chloride 0.9% 1,000 ML 100 ML IV ×2 (02:28→15:02)
[2020-10-16] MEDS: piperacillin-tazobactam 3.375 GM in sodium chloride 0.9% (plus) 50 ML IV ×3 (03:01→18:20)
[2020-10-16 04:11] LABS: Basophils % 0.4 %; Eosinophils # 0.2 10^3/uL (0.0-0.8); Eosinophils % 1.4 %; Hematocrit 54.9 % (42.0-52.0); Hemoglobin 18.6 g/dL (11.7-16.6); Lymphocytes # 0.9 10^3/uL (0.8-4.8); Lymphocytes % 8.1 %; Mean Corpuscular HGB Conc 33.9 g/dL (30.0-36.0); Mean Corpuscular Hemoglobin 31.9 pg (28.0-34.0); Mean Corpuscular Volume 94.2 fL (80-94); Mean Platelet Volume 10.6 fL (7.4-10.4); Monocytes # 1.3 10^3/uL (0.2-0.9); Monocytes % 11.9 %; Neutrophils # 8.65 10^3/uL (1.8-7.7); Nucleated Red Blood Cells % 0 %; Platelet Count 178 10^3/cmm (130-400); Red Blood Count 5.83 10^6/uL (4.1-5.3); Red Cell Distribution Width 13.4 % (12.1-15.1); White Blood Count 11.1 10^3/uL (4.0-10.0)
[2020-10-16 06:29] LABS: Blood Urea Nitrogen 28 mg/dL (8-23); Calcium 8.8 mg/dL (8.5-10.5); Carbon Dioxide 18 mmol/L (22-29); Chloride 106 mmol/L (98-107); Glomerular Filtration Rate 50.2 mL/min (90-130); Glucose 75 mg/dL (65-115); Osmolality Calculated 292 mOsm/kg (285-295); Sodium 139 mmol/L (136-145)
[2020-10-16] MEDS: thiamine 100 mg Tablet PO (09:04)
[2020-10-16] MEDS: metoprolol tartrate 50 mg Tablet PO ×2 (09:04→17:41)
[2020-10-16] MEDS: aspirin 325 mg Tablet PO (09:04)
[2020-10-16] MEDS: levothyroxine 100 mcg Tablet PO (09:04)
[2020-10-16] MEDS: folic acid 1 mg Tablet PO (09:05)
[2020-10-16] MEDS: apixaban 5 mg Tablet PO ×2 (09:05→20:57)
[2020-10-16] MEDS: zonisamide 100 MG Capsule 500 MG PO (09:05)
--- NOTE | 2020-10-16 09:30 | PM.PN ---
Subjective Subjective: Interval history: This progress note is from 10/15/2020. I examined the patient and reviewed his CT scan of the head and compared to his previous MRI from a year ago. I visited with his . His indicates that he has never had this many generalized seizures in a row but his post ictal behavior was very similar in the past. I went over the medications with her and answered questions. He is sedated and a little restless but not agitated. Vitals/I&O/Wt Last Vital Signs Temp 98.2 F 10/16/20 04:00 Pulse 90 10/16/20 07:40 Resp 20 H 10/16/20 07:40 BP 133/91 10/16/20 06:00 Pulse Ox 92 10/16/20 07:40 10/15/20 10/16/20 10/16/20 22:59 06:59 14:59 Intake Total 1410 / 1510 940 / 2450 50 / 50 Output Total 850 / 850 850 / 1700 Balance 560 / 660 90 / 750 50 / 50 Weight last 48 hrs Weight 247 lb 9.6 oz Weight 238 lb 12.8 oz Physical Exam Narrative: EXAM NARRATIVE: He said his name. He could tell me his birthdate. He followed simple but not complex commands. Face was symmetric. He moves all 4 extremities with excellent strength. Urinary Catheter Management^: Arango: Cath Placed During This Visit: yes Reason for Continuing Indwelling Catheter: Accurate Measurement of Urinary Output in Critically Ill Patients Urinary Catheter Date of Insertion: 10/14/20 Urinary Catheter Time of Insertion: 13:17 Data : 10/16/20 03:13 10/16/20 03:13 A&P Assessment and plan (1) Receptive aphasia: His CT scan of the head does not show an acute stroke. His confirms that he has had receptive aphasia as a post ictal phenomenon on previous seizures but that he had a lot of generalized tonic-clonic seizures prior to this admission. It seems that he is clearing. I think we should stop his sedatives after this evening. Status: Acute (2) Focal epilepsy with impairment of consciousness: He must have a left hemisphere focus but CT and MRI do not show a focal abnormality. Status: Acute (3) Secondarily generalized seizures: Status: Acute Attestations Medical Necessity Statement*: Severe agitation following multiple generalized tonic-clonic seizures with need for ICU Coding Level of Care Code Acute Manager Pool for Chg Fwd Diagnoses Receptive aphasia R47.01 Focal epilepsy with impairment of consciousness G40.209 Secondarily generalized seizures Time Spent (min) 40 Comment Visiting with patient's , reviewing CT scan and MRI
--- NOTE | 2020-10-16 11:19 | PC.SOCIAL ---
Addendum entered by Smita Hudson 10/16/20 11:26: received, not patient Original Note: *IMM* Patient received Page 2 of the IMM. It is initialled and placed in the chart.
--- NOTE | 2020-10-16 11:50 | P.PN_ITS ---
Subjective Subjective: Interval history: Orion is able to visit with me a little bit this morning. He still has some confusion but has less aphasia. Zyprexa was reduced yesterday and changed to p.o. He has not required any significant Ativan and it was discontinued. Medications: Reviewed: Yes Vitals/I&O/Wt Last Vital Signs Temp 98.2 F 10/16/20 04:00 Pulse 90 10/16/20 10:00 Resp 20 H 10/16/20 10:00 BP 133/91 10/16/20 06:00 Pulse Ox 92 10/16/20 07:40 10/15/20 10/16/20 10/16/20 22:59 06:59 14:59 Intake Total 1410 / 1510 940 / 2450 150 / 150 Output Total 850 / 850 850 / 1700 Balance 560 / 660 90 / 750 150 / 150 Weight last 48 hrs Weight 112.309 kg Weight 108.318 kg Physical Exam Narrative: EXAM NARRATIVE: General exam is a white male, confused but responsive Neck is supple no lymphadenopathy or thyromegaly Cardiovascular regular rate and rhythm, no murmur Lungs clear no wheezing or crackles. Tachypneic Abdomen is soft. Positive bowel sounds. Large midline hernia. No obvious organomegaly Extremities no cyanosis clubbing or edema, cap refill brisk Neurologic: No obvious focal deficits. Urinary Catheter Management^: Arango: Cath Placed During This Visit: yes Reason for Continuing Indwelling Catheter: Accurate Measurement of Urinary Output in Critically Ill Patients Urinary Catheter Date of Insertion: 10/14/20 Urinary Catheter Time of Insertion: 13:17 Data : 10/16/20 03:13 10/16/20 03:13 A&P Assessment and plan (1) Focal epilepsy with impairment of consciousness: He apparently had onset of seizure the morning of admission. He has had no generalized shaking however consciousness has been impaired and he has not returned to baseline and has had several episodes concerning for status. At this time it is unknown if he is compliant with his seizure medications. Alcohol intake night of admission could have also reduce seizure threshold. Continue Keppra IV 1000 mg every 12 hours. When he is reliably taking p.o. consistently would transition back to Keppra 1500 mg p.o. every 12 hours Received Depacon IV x1 dose. Neurology has started Zonegran 500 mg p.o. daily Appreciate neurologic consultation As far as knows he has been compliant with his medication, but he manages all of this himself. EEG was performed October 14 demonstrating no current seizure activity Some agitation has occurred this morning. This is consistent with acute encephalopathy. With history of alcohol intake must consider withdrawal. CIWA protocol was initiated. Neurology also started Zyprexa 10 mg twice daily but this is now been tapered off. Status: Acute (2) Polycythemia: Hemoglobin and hematocrit slightly high. ABG was checked and no significant CO2 retention. I suspect he has history of chronic hypoxia from tobacco use Status: Acute (3) Atrial fibrillation: Exam is consistent with sinus rhythm. EKG demonstrated this as well Continue metoprolol. Discontinue flecainide. I do not believe he is currently still on this medicine at home. Apixaban has been resumed Status: Acute (4) COPD (chronic obstructive pulmonary disease): DuoNeb as needed Secondary to tachypnea chest x-ray was performed. This demonstrates an infiltrate in his right lung, right lower lobe. With his encephalopathy that has continued, concern of withdrawal, increasing white blood cell count aspiration pneumonitis must be considered. Zosyn was started yesterday secondary to this reason. Afebrile currently Status: Acute Additional A&P Information Acute encephalopathy, consistent with post seizure phenomenon in this patient who had multiple seizures prior to arrival. Cannot rule out a component of alcohol withdrawal. He appears to be slowly improving History of alcohol use. Continue thiamine, folate Hypothyroidism,TSH checked and normal Hypertension, continue home medications History of daily alcohol intake. Thiamine, folate, CIWA protocol Full code Placed on therapeutic Lovenox to substitute for Eliquis he was on at home. Hydration with normal saline secondary to encephalopathy as oral intake is poor. If he continues to improve consider transfer out of the ICU tomorrow. May require a one-to-one sitter. Initiate diet after evaluation by speech therapy PT and OT consultations Attestations Medical Necessity Statement*: Needs continued hospitalization for close monitoring of his prolonged postictal state. Coding Level of Care Code Acute Canvas Goods Fabricator for Alonzog Jonna Diagnoses Focal epilepsy with impairment of consciousness G40.209 Polycythemia D75.1 Atrial fibrillation I48.91 COPD (chronic obstructive pulmonary disease) J44.9
--- NOTE | 2020-10-16 17:25 | PC.PT ---
Reattempted PT evaluation ?2 today, patient unable to be arouse for meaningful participation with physical therapy, will reattempt tomorrow
--- NOTE | 2020-10-16 18:40 | PC.NURSE ---
Shift summary: Pt alert to self at beginning of shift. He would follow commands, take his PO medication without difficulty. NO further signs of aggression noted. He rested in bed with eyes closed most of the shift. At end of shift he woke and could state he was in the hospital. He was calm, pleasant and at times emotional ( crying). He had a large formed BM today. HIs urine output more than adequate. His was at bedside most of the day. His needs reinforcement of post ictal states. Discussion and education provided to her further her understanding. No seizure activity noted this shift.
[2020-10-16] MEDS: budesonide 0.5 mg/2 mL Neb INHALATION (19:51)
[2020-10-16] MEDS: ipratropium-albuterol 3 mL Neb INHALATION (19:51)
[2020-10-17] VITALS (39 sets, daily range): BP systolic 92–135; BP diastolic 57–86; PULSE 66–88; RESP 15–33; TEMP 36.3–37.2; O2SAT 90–96
[2020-10-17] MEDS: sodium chloride 0.9% 1,000 ML 75 ML IV (01:37)
[2020-10-17] MEDS: piperacillin-tazobactam 3.375 GM in sodium chloride 0.9% (plus) 50 ML IV ×3 (03:17→18:13)
[2020-10-17 04:08] LABS: Basophils % 0.5 %; Eosinophils # 0.3 10^3/uL (0.0-0.8); Eosinophils % 3.1 %; Hematocrit 54.1 % (42.0-52.0); Hemoglobin 17.9 g/dL (11.7-16.6); Lymphocytes # 0.8 10^3/uL (0.8-4.8); Lymphocytes % 9.9 %; Mean Corpuscular HGB Conc 33.1 g/dL (30.0-36.0); Mean Corpuscular Hemoglobin 31.3 pg (28.0-34.0); Mean Corpuscular Volume 94.7 fL (80-94); Monocytes # 1.1 10^3/uL (0.2-0.9); Monocytes % 13.2 %; Neutrophils # 6.18 10^3/uL (1.8-7.7); Neutrophils % 72.9 %; Nucleated Red Blood Cells % 0 %; Platelet Count 185 10^3/cmm (130-400); Red Blood Count 5.71 10^6/uL (4.1-5.3); Red Cell Distribution Width 13.4 % (12.1-15.1); White Blood Count 8.5 10^3/uL (4.0-10.0)
[2020-10-17 04:31] LABS: Alanine Aminotransferase 24 U/L (0-41); Albumin Level 3.3 g/dL (3.5-5.2); Alkaline Phosphatase 53 IU/L (40-130); Blood Urea Nitrogen 22 mg/dL (8-23); Calcium 8.4 mg/dL (8.5-10.5); Carbon Dioxide 17 mmol/L (22-29); Chloride 108 mmol/L (98-107); Globulin 2.6 g/dL (1.3-4.6); Glucose 70 mg/dL (65-115); Osmolality Calculated 288 mOsm/kg (285-295); Sodium 138 mmol/L (136-145); Total Bilirubin 0.9 mg/dL (0.15-1.2); Total Protein 5.9 g/dL (6.6-8.7)
[2020-10-17 04:40] LABS: Anion Gap 17.1 (5-19); Aspartate Amino Transferase 45 U/L (0-40); Potassium 4.1 mmol/L (3.5-5.1)
[2020-10-17] MEDS: ipratropium-albuterol 3 mL Neb INHALATION ×2 (08:04→19:48)
[2020-10-17] MEDS: budesonide 0.5 mg/2 mL Neb INHALATION ×2 (08:04→19:48)
[2020-10-17] MEDS: levothyroxine 100 mcg Tablet PO (10:04)
[2020-10-17] MEDS: acetaminophen 325 mg Tablet 650 MG PO (10:04)
[2020-10-17] MEDS: thiamine 100 mg Tablet PO (10:05)
[2020-10-17] MEDS: metoprolol tartrate 50 mg Tablet PO ×2 (10:05→18:13)
[2020-10-17] MEDS: aspirin 325 mg Tablet PO (10:05)
[2020-10-17] MEDS: zonisamide 100 MG Capsule 500 MG PO (10:06)
[2020-10-17] MEDS: folic acid 1 mg Tablet PO (10:06)
[2020-10-17] MEDS: apixaban 5 mg Tablet PO ×2 (10:09→20:20)
--- NOTE | 2020-10-17 12:41 | PM.PN ---
Subjective Subjective: Interval history: Patient was seen and examined this morning no acute events overnight. Currently he is alert oriented x3. He was communicating well, no speech abnormality, hemodynamics have remained stable. He has been started on diet. Keppra has been switched to p.o. daily from IV. Arango has been removed, IV fluids have been discontinued, will encourage oral intake.Worked well with OT and PT. patient is independent with written home exercise program for balance strengthening flexibility and endurance. Medications: Reviewed: Yes Vitals/I&O/Wt Last Vital Signs Temp 98.2 F 10/17/20 08:00 Pulse 88 10/17/20 10:00 Resp 18 10/17/20 08:00 BP 120/80 10/17/20 10:00 Pulse Ox 94 10/17/20 10:00 10/16/20 10/17/20 10/17/20 22:59 06:59 14:59 Intake Total 706.667 / 1906.667 606.25 / 2512.917 550 / 550 Output Total 1600 / 1600 450 / 2050 Balance -893.333 / 306.667 156.25 / 462.917 550 / 550 Weight last 48 hrs Weight 124.375 kg Weight 112.309 kg Physical Exam Const: COMMON NORMALS: patient oriented x3 HENMT: COMMON NORMALS: normocephalic and atraumatic HEAD & SCALP: normocephalic and atraumatic Chest: CHEST: Yes Symmetrical chest wall rise Resp: COMMON NORMALS: clear to auscultation bilaterally EFFORT & INSPECTION: Yes symmetric chest movement AUSCULTATION: clear to auscultation bilaterally Cardio: COMMON NORMALS: regular rate, regular rhythm, S1 normal heart sound present, S2 normal heart sound present, No gallops present (Cardio), No murmurs present (Cardio), No rub (Cardio) and Peripheral pulses 2+ throughout RATE: regular rate RHYTHM: regular rhythm HEART SOUNDS: S1 normal heart sound present and S2 normal heart sound present PERIPHERAL PULSES: Peripheral pulses 2+ throughout GI: COMMON NORMALS: Normal to inspection, nondistended, normoactive bowel sounds present, Soft to palpation, non-tender, No hepatosplenomegaly present and no masses AUSCULTATION: Yes normoactive bowel sounds PALPATION: Yes Soft to palpation and Yes No hepatosplenomegaly present RECTAL EXAM: Yes deferred Extremity: COMMON NORMALS: no clubbing, cyanosis or edema and no pedal edema Neuro: COMMON NORMALS: patient oriented x3 Urinary Catheter Management^: Arango: Cath Placed During This Visit: yes Reason for Continuing Indwelling Catheter: Accurate Measurement of Urinary Output in Critically Ill Patients Urinary Catheter Date of Insertion: 10/14/20 Urinary Catheter Time of Insertion: 13:17 Data : 10/17/20 03:24 10/17/20 03:24 A&P Assessment and plan (1) Focal epilepsy with impairment of consciousness: He apparently had onset of seizure the morning of admission. He has had no generalized shaking however consciousness has been impaired and he has not returned to baseline and has had several episodes concerning for status. At this time it is unknown if he is compliant with his seizure medications. Alcohol intake night of admission could have also reduce seizure threshold. Continue Keppra IV 1000 mg every 12 hours. When he is reliably taking p.o. consistently would transition back to Keppra 1500 mg p.o. every 12 hours Received Depacon IV x1 dose. Neurology has started Zonegran 500 mg p.o. daily Appreciate neurologic consultation As far as knows he has been compliant with his medication, but he manages all of this himself. EEG was performed October 14 demonstrating no current seizure activity Some agitation has occurred this morning. This is consistent with acute encephalopathy. With history of alcohol intake must consider withdrawal. CIWA protocol was initiated. Neurology also started Zyprexa 10 mg twice daily but this is now been tapered off. Status: Acute (2) Polycythemia: Hemoglobin and hematocrit slightly high. ABG was checked and no significant CO2 retention. I suspect he has history of chronic hypoxia from tobacco use Status: Acute (3) Atrial fibrillation: Exam is consistent with sinus rhythm. EKG demonstrated this as well Continue metoprolol. Discontinue flecainide. I do not believe he is currently still on this medicine at home. Apixaban has been resumed Status: Acute (4) COPD (chronic obstructive pulmonary disease): DuoNeb as needed Secondary to tachypnea chest x-ray was performed. This demonstrates an infiltrate in his right lung, right lower lobe. With his encephalopathy that has continued, concern of withdrawal, increasing white blood cell count aspiration pneumonitis must be considered. Zosyn was started yesterday secondary to this reason. Afebrile currently Status: Acute Additional A&P Information Acute encephalopathy, consistent with post seizure phenomenon in this patient who had multiple seizures prior to arrival. Cannot rule out a component of alcohol withdrawal. He appears to be slowly improving History of alcohol use. Continue thiamine, folate Hypothyroidism,TSH checked and normal Hypertension, continue home medications History of daily alcohol intake. Thiamine, folate, CIWA protocol Full code Placed on therapeutic Lovenox to substitute for Eliquis he was on at home. Hydration with normal saline secondary to encephalopathy as oral intake is poor. If he continues to improve consider transfer out of the ICU tomorrow. May require a one-to-one sitter. Initiate diet after evaluation by speech therapy PT and OT consultations Attestations Medical Necessity Statement*: Patient needs to be in hospital for management of above defined problems. Coding Level of Care Code Acute Independent Jeweler for [employer] Diagnoses Focal epilepsy with impairment of consciousness G40.209 Polycythemia D75.1 Atrial fibrillation I48.91 COPD (chronic obstructive pulmonary disease) J44.9
--- NOTE | 2020-10-17 13:36 | PC.NURSE ---
Report faxed to [facility].
[2020-10-17] MEDS: levETIRAcetam 500 mg Tablet 1000 MG PO ×2 (14:18→20:20)
--- NOTE | 2020-10-17 14:42 | PC.NURSE ---
Called [facility] back to give report for room 259-1. Report given to YOAV Drumomnd>
--- NOTE | 2020-10-17 15:05 | PC.NURSE ---
Pt transferred to room 259-1. Pt with pt ambulating to new room.
--- NOTE | 2020-10-17 22:54 | PC.NURSE ---
Patient attempted to urinate in urinal but was unable to. Bed sheets completely saturated with urine with no blood tinged noted.
[2020-10-18] VITALS (7 sets, daily range): BP systolic 105–120; BP diastolic 63–82; PULSE 71–86; RESP 16–18; TEMP 36.8–37; O2SAT 90–92
[2020-10-18] MEDS: piperacillin-tazobactam 3.375 GM in sodium chloride 0.9% (plus) 50 ML IV (02:22)
[2020-10-18] MEDS: budesonide 0.5 mg/2 mL Neb INHALATION (08:24)
[2020-10-18] MEDS: ipratropium-albuterol 3 mL Neb INHALATION (08:24)
[2020-10-18 10:55] LABS: Alanine Aminotransferase 27 U/L (0-41); Albumin Level 3.1 g/dL (3.5-5.2); Alkaline Phosphatase 58 IU/L (40-130); Anion Gap 12.7 (5-19); Aspartate Amino Transferase 39 U/L (0-40); Blood Urea Nitrogen 23 mg/dL (8-23); Calcium 8.8 mg/dL (8.5-10.5); Carbon Dioxide 25 mmol/L (22-29); Chloride 108 mmol/L (98-107); Globulin 3.1 g/dL (1.3-4.6); Glomerular Filtration Rate 43.1 mL/min (90-130); Glucose 102 mg/dL (65-115); Osmolality Calculated 298 mOsm/kg (285-295); Potassium 3.7 mmol/L (3.5-5.1); Sodium 142 mmol/L (136-145); Total Bilirubin 0.6 mg/dL (0.15-1.2); Total Protein 6.2 g/dL (6.6-8.7)
--- NOTE | 2020-10-18 11:18 | PC.SOCIAL ---
IMM completed with pt on 10/18/20 @ 8343. Copy of rights given to pt.
[2020-10-18] MEDS: folic acid 1 mg Tablet PO (11:21)
[2020-10-18] MEDS: thiamine 100 mg Tablet PO (11:21)
[2020-10-18] MEDS: aspirin 325 mg Tablet PO (11:21)
[2020-10-18] MEDS: levETIRAcetam 500 mg Tablet 1000 MG PO (11:21)
[2020-10-18] MEDS: apixaban 5 mg Tablet PO (11:21)
[2020-10-18] MEDS: metoprolol tartrate 50 mg Tablet PO (11:21)
[2020-10-18] MEDS: levothyroxine 100 mcg Tablet PO (11:21)
[2020-10-18] MEDS: zonisamide 100 MG Capsule 500 MG PO (11:21)
--- NOTE | 2020-10-18 11:30 | PM.DCS ---
Discharge Providers Date of Admission: 10/13/20 13:08 Date of Discharge: October 18, 2020 Attending Provider at Admission: James López MD Attending Provider at Discharge: Michael Marquis MD Primary Care Provider: Gonzalo Linares Diagnoses at Discharge Discharge Diagnosis (1) Focal epilepsy with impairment of consciousness: Status: Resolved (2) Polycythemia: Status: Chronic (3) Atrial fibrillation: Status: Chronic (4) COPD (chronic obstructive pulmonary disease): Status: Chronic Reason for Visit Reason for Visit: SEIZURES Hospital Course Hospital Course 70 year old male with past medical history of atrial fibrillation , COPD not on home oxygen, hypertension ,hypothyroidism, focal epilepsy with impairment of consciousness, secondary generalized seizure, was admitted with chief complaint of presented to an outside emergency department in [place] with confusion. According to she found him this morning by the refrigerator, staring. She reported this behavior continued about 45 minutes until he decided to come to the emergency department.While in the emergency department at [place] he perhaps had 3 more episodes manifested by jaw clenching, repetitive mouth movements, staring and confusion.According to patient's he does not misses his seizure medication. reports he drinks several mixed drinks a day, but potentially drank quite a bit more last night after going out with friends. Patient was admitted for the management of focal epilepsy with impairment of consciousness, CT of his head which is negative for any acute changes or bleeding, Hemoglobin 19.7, platelets 177, white blood cell count 11.3, LFTs normal, calcium 9.9, creatinine 1.7, potassium 4.9, sodium 139, rapid Covid negative.He was started on Keppra IV 1000 mg every 12 hours, he also received 1 dose of Depakote IV, neurology was consulted,Neurology has started Zonegran 500 mg p.o. daily,EEG was performed October 14 demonstrating no current seizure activity.He was later switched to Keppra 1000 mg p.o. every 12 hours daily.And he was doing fine on this current regimen.Neurology also started Zyprexa 10 mg twice daily but it was tapered off. CIWA protocol was also initiated given his significant alcohol history. Polycythemia is likely secondary to underlying chronic hypoxia secondary to underlying COPD. For his history of A. fib he continued to remain in sinus throughout the hospital stay he was discharged on his Eliquis and metoprolol which are his home medications.He was also managed for possible aspiration pneumonia, chest x-ray was performed. This demonstrates an infiltrate in his right lung, right lower lobe.He was kept on Zosyn. At the time of discharge he was not short of breath, saturating well on room air, he was not tachycardic tachypneic, he was not discharged on any p.o. antibiotics. Acute encephalopathy which was secondary to seizure, and possible alcohol withdrawal, was resolved at the time of discharge, he was alert oriented x3, communicating well.Physical therapy was also involved in the care of the patient during the hospital stay, he was sent home with home exercise recommendations, he was ambulating independently.Patient responded well to the above medical management and was discharged in stable condition.He will continue to follow neurology as an outpatient. Physical Exam Const: COMMON NORMALS: patient oriented x3 HENMT: COMMON NORMALS: normocephalic and atraumatic HEAD & SCALP: normocephalic and atraumatic Chest: CHEST: Yes Symmetrical chest wall rise Resp: COMMON NORMALS: clear to auscultation bilaterally EFFORT & INSPECTION: Yes symmetric chest movement AUSCULTATION: clear to auscultation bilaterally Cardio: COMMON NORMALS: regular rate, regular rhythm, S1 normal heart sound present, S2 normal heart sound present, No gallops present (Cardio), No murmurs present (Cardio), No rub (Cardio) and Peripheral pulses 2+ throughout RATE: regular rate RHYTHM: regular rhythm HEART SOUNDS: S1 normal heart sound present and S2 normal heart sound present PERIPHERAL PULSES: Peripheral pulses 2+ throughout GI: COMMON NORMALS: Normal to inspection, nondistended, normoactive bowel sounds present, Soft to palpation, non-tender, No hepatosplenomegaly present and no masses AUSCULTATION: Yes normoactive bowel sounds PALPATION: Yes Soft to palpation and Yes No hepatosplenomegaly present RECTAL EXAM: Yes deferred Extremity: COMMON NORMALS: no clubbing, cyanosis or edema and no pedal edema Neuro: COMMON NORMALS: patient oriented x3 Urinary Catheter Management^: Arango: Cath Placed During This Visit: yes, but has since been removed by the nurse Reason for Continuing Indwelling Catheter: Accurate Measurement of Urinary Output in Critically Ill Patients Urinary Catheter Date of Insertion: 10/14/20 Urinary Catheter Time of Insertion: 13:17 Date Urinary Catheter Removed: 10/17/20 Time Urinary Catheter Discontinued: 13:00 Discharge Data Data Completed and Pending: Completed Studies During Hospitalization Category Date Time Status CT head wo con* 7 0450 Routine Cat Scan 10/15/20 07:00 Completed XR chest 1V navneet ble 18262 Routine Exams 10/14/20 14:59 Completed Pending at discharge Category Date Time Status EEG electroenceph alogram Routine Exams 10/14/20 09:49 Ordered Basic Metabolic P vanesa AM LABS Lab 10/19/20 04:00 Ordered Basic Metabolic P vanesa AM LABS Lab 10/20/20 04:00 Ordered Basic Metabolic P vanesa AM LABS Lab 10/21/20 04:00 Ordered Complete Blood Co unt w/Auto AM LABS Lab 10/19/20 04:00 Ordered Complete Blood Co unt w/Auto AM LABS Lab 10/20/20 04:00 Ordered Complete Blood Co unt w/Auto AM LABS Lab 10/21/20 04:00 Ordered Labs from last 24 hours 10/18/20 10:12 Sodium 142 Potassium 3.7 Chloride 108 H Carbon Dioxide 25 Anion Gap 12.7 BUN 23 Creatinine 1.6 H GFR Calculation 43.1 L Glucose 102 Calculated Osmolal ity 298 H Calcium 8.8 Total Bilirubin 0.6 AST 39 ALT 27 Alkaline Phosphata se 58 Total Protein 6.2 L Albumin 3.1 L Globulin 3.1 Vitals: Last Vital Signs Temp 98.2 F 10/18/20 08:00 Pulse 82 10/18/20 08:33 Resp 18 10/18/20 08:33 BP 105/70 10/18/20 08:00 Pulse Ox 92 10/18/20 08:33 Discharge Plan Discharge Patient Disposition: Home Condition: Stable Prescriptions: New Keppra 1,000 mg tablet 1,000 mg PO BID Qty: 30 RF: 3 metoprolol succinate 50 mg tablet extended release 24 hr 50 mg PO DAILY Qty: 30 RF: 3 Zonegran 100 mg capsule 500 mg PO DAILY Qty: 150 RF: 3 Continued apixaban 5 mg tablet 5 mg PO BID RF: 0 budesonide-formoterol 160-4.5 mcg/actuation HFA aerosol inhaler 2 puff INHALATION BID RF: 0 levothyroxine 100 mcg Tablet 100 mcg PO DAILY RF: 0 ProAir HFA 90 mcg/actuation Hfa Aerosol Inhaler 2 puff INHALATION Q6H PRN (Reason: Shortness Of Breath) RF: 0 tadalafil 5 mg Tablet 5 mg PO PRN RF: 0 cyanocobalamin (vitamin B-12) 1,000 mcg Tablet 1,000 mcg PO DAILY RF: 0 Held lisinopril 20 mg tablet 20 mg PO BID RF: 0 Hold Instructions: Resume on 10/25/20. amlodipine 10 mg Tablet 10 mg PO DAILY RF: 0 Hold Instructions: Resume on 10/25/20. Discontinued zonisamide [Zonegran] 100 mg capsule 400 mg PO DAILY Qty: 120 RF: 11 levetiracetam [Keppra] 750 mg tablet 1,500 mg PO BID Qty: 120 RF: 11 Discharge Orders: Discharge Order (Routine); Ordered 10/18/20 Ordered By: Michael Marquis Referrals: Lisa Mccallum MD [Physician] - 2 weeks (Please call tomorrow morning to schedule a follow up appointment with Dr. Mccallum within 2 weeks for hospital follow-up.) Discharge Diet: Regular Discharge Activity: Resume usual activity Patient Instructions: Metoprolol (By mouth), Levetiracetam (By mouth), Zonisamide (By mouth), Epilepsy (DC), Opioid Safety Discharge Attestations Time Spent in Discharge Care*: less than 30 min Specific Discharge Activities: educating patient, educating and/or supporting family/caregiver, discussing with pcp/other providers, discussing with comp field case manager/social workers/dc planners, documenting/other paperwork and evaluating patient/reviewing data Status at Discharge: Cognitive status at discharge: cognitively intact, Behavioral status at discharge: cooperative, Functional status at discharge: independent ambulation Overall status at discharge: patient is back to baseline Quality Metrics Clinical Quality Measures During this hospital stay, did patient experience: None Coding Level of Care Code Acute Chg FW DC note Exam Detailed Diagnoses Focal epilepsy with impairment of consciousness G40.209 Polycythemia D75.1 Atrial fibrillation I48.91 COPD (chronic obstructive pulmonary disease) J44.9
--- NOTE | 2020-10-18 16:49 | PC.NURSE ---
PT HAS DONE WELL TODAY. NO COMPLAINTS OF PAIN. PT HAD LARGE BOWEL MOVEMENT THIS MORNING. PT WAS ASSISTED TO THE RESTROOM A COUPLE OF TIMES THIS MORNING AND DID WELL AMBULATING. PT WILL DISCHARGE TODAY PER MD. DISCHARGE PAPERWORK WAS GONE OVER WITH PT. ALL QUESTIONS ANSWERED. MEDICATIONS WERE SENT TO THE PHARMACY PER PT REQUEST. IV REMOVED. PT TOLERATED WELL. CATHETER TIP INTACT. PT WAS ASSISTED INTO A WHEELCHAIR AND WHEELED OUT BY THIS NURSE. PT SAFELY DISCHARGED FROM THE HOSPITAL AT 1407.
== END 2020-10-18 14:07 | disposition home or self-care (01) | DRG 100 ==
LOC: ICU 10-17 08:25 → MEDSURG 10-17 14:58
PROVIDERS: Admitting Provider Internal Medicine; PCP Nurse Practitioner Family; Visit Provider Internal Medicine
DX: G40.209 Localization-related (focal) (partial) symptomatic epilepsy and epileptic syndromes with complex partial seizures, not intractable, without status epilepticus (principal); J69.0 Pneumonitis due to inhalation of food and vomit; G93.49 Other encephalopathy; R47.01 Aphasia; F10.239 Alcohol dependence with withdrawal, unspecified; D75.1 Secondary polycythemia; I48.91 Unspecified atrial fibrillation; Z79.01 Long term (current) use of anticoagulants; J44.9 Chronic obstructive pulmonary disease, unspecified; I10 Essential (primary) hypertension; E03.9 Hypothyroidism, unspecified; G31.84 Mild cognitive impairment of uncertain or unknown etiology; Z87.891 Personal history of nicotine dependence; Z78.1 Physical restraint status
CPT/HCPCS: 36415; 36600; 51702; 70450; 71045; 80048; 80053; 80061; 81001; 82803; 84443; 85025; 92523; 92610; 93005; 94640; 96372; 97110; 97161; 97167; 97530; 97535; J1650; J1953; J2060; J2543; J3411; J3490; J7030; J7626

== ENCOUNTER → 2020-11-03 12:44 | Outpatient (BNVA) | payer OTHER, SELFPAY | PROVIDERS: PCP Nurse Practitioner Family; Referring Provider Internal Medicine; Visit Provider Specialist | DX: G40.309 Generalized idiopathic epilepsy and epileptic syndromes, not intractable, without status epilepticus (principal); G40.219 Localization-related (focal) (partial) symptomatic epilepsy and epileptic syndromes with complex partial seizures, intractable, without status epilepticus; Z87.891 Personal history of nicotine dependence | CPT/HCPCS: 99215 ==

== ENCOUNTER → 2021-08-03 11:23 | Outpatient (BNVA) | payer OTHER, SELFPAY | PROVIDERS: PCP Nurse Practitioner Family; Visit Provider Specialist | DX: G40.219 Localization-related (focal) (partial) symptomatic epilepsy and epileptic syndromes with complex partial seizures, intractable, without status epilepticus (principal); G40.309 Generalized idiopathic epilepsy and epileptic syndromes, not intractable, without status epilepticus; G30.9 Alzheimer's disease, unspecified; F02.80 Dementia in other diseases classified elsewhere, unspecified severity, without behavioral disturbance, psychotic disturbance, mood disturbance, and anxiety; Z79.899 Other long term (current) drug therapy; Z51.81 Encounter for therapeutic drug level monitoring | CPT/HCPCS: 96116; 99215 ==

== ENCOUNTER 2021-12-27 18:26 | Observation (INO) | payer OTHER, SELFPAY ==
[2021-12-27 15:11] VITALS: BMI 32.7
[2021-12-27] MEDS: acetaminophen 325 mg Tablet 650 MG PO (16:18)
[2021-12-27 16:44] VITALS: PULSE 88; RESP 18; O2SAT 94
--- NOTE | 2021-12-27 16:49 | PM.HP ---
Providers/Chief Complaint Admitting Physician: Debbie Mendes MD Primary Care Provider: Gonzalo Linares ANP Chief Complaint: seizures History of Present Illness Orion Varghese is a 71 year old male who has history of receptive aphasia, 11/10/21 he was seen at [facility] his antiepileptics were readjusted, he has been on Eliquis for A. fib, has seen Dr. Mccallum in August this year, presented from [facility] for chief complaint of breakthrough seizures and a fall. is at the bedside who is stating that when she checked on him at 7 AM on 12/27 he was not in his bed and finally he found him on the left side of his bed laying on the floor. He was awake and alert he just did not have enough strength to get up on his own. She has not noticed new focal deficit but she was concerned if he is having another stroke. She called EMS. In the ER at [facility] he started having focal seizure which she is describing as smacking his lips, neck getting tensed along his upper body and then finally he started shaking aggressively, he was given Dilantin 1 g along 15-20 mg of Valium. Patient was transferred to our facility because he has seen Dr. Mccallum recently. Dr. Mendes excepted admission I am seeing this patient in the ICU, patient has left arm and leg paresis, he has left-sided neglect I reviewed his notes from his recent admission he had neglect of left side with weakness of left arm and leg. had no clue about his left-sided neglect. When I close his right eye patient was not able to locate his in the room. He cannot differentiate between right and left When asked him to lift his left hand he Lifting his right hand and same with his right leg. However he is able to move all of his extremities spontaneously. He does show signs of frustration with his word finding difficulty, he does have dysarthria he is awake and alert Able to answer my questions to some extent Code stroke was not called I did speak with Dr. Mccallum who recommended increasing his Depakote dose to 1000 mg twice daily and keeping 1500 mg Keppra twice daily regimen, I have requested Depakote and Keppra level His creatinine is 1.4 I would not repeat CTA head and neck which was done a month ago Review of Systems Eyes: Denies: change in vision ENMT: Denies: throat pain Card: Denies: chest pain Resp: Denies: dyspnea GI: Denies: abdominal pain : Denies: flank pain Musc: Denies: neck pain Skin/Breast: Denies: rash Neuro: Denies: headache(s) Psych: Reports: anxiety Endo: Denies: polyuria Peter/Lymph: Denies: easy bruising All/Imm: Denies: urticaria Medications/Allergies Home Medications Medication Instructions Recorded Confirmed Last Taken Type apixaban 5 mg tablet 5 mg PO BID 10/14/19 08/03/21 Unknown History budesonide-formoterol HFA 160 2 puff INHALATION BID 10/14/19 08/03/21 Unknown History mcg-4.5 mcg/actuation aerosol inhaler lisinopril 20 mg tablet 20 mg PO BID 10/14/19 08/03/21 Unknown History albuterol sulfate 90 mcg/actuation 2 puff INHALATION Q6H PRN 10/14/20 08/03/21 Unknown History aerosol inhaler (ProAir HFA) amlodipine 10 mg tablet 10 mg PO DAILY 10/14/20 08/03/21 Unknown History levothyroxine 100 mcg tablet 100 mcg PO DAILY 10/14/20 08/03/21 Unknown History tadalafil 5 mg tablet 5 mg PO PRN 10/14/20 08/03/21 Unknown History cyanocobalamin (vitamin B-12) 1,000 mcg PO DAILY 10/15/20 08/03/21 Unknown History 1,000 mcg tablet metoprolol succinate 50 mg 50 mg PO DAILY #30 tab 10/18/20 08/03/21 Unknown Rx tablet,extended release 24 hr lorazepam 2 mg/mL oral concentrate 2 mg SUBLINGUAL DAILY PRN #30 ml 11/03/20 08/03/21 Unknown Rx (Lorazepam Intensol) midazolam 5 mg/spray (0.1 mL) 1 spray INTRANASAL ONCE #1 ea 11/03/20 08/03/21 Unknown Rx nasal spray atorvastatin 20 mg tablet 20 mg PO DAILY 08/03/21 08/03/21 Unknown History divalproex 500 mg tablet,extended 500 mg PO BID #180 tab 08/03/21 08/03/21 Unknown Rx release 24 hr (Depakote ER) galantamine 4 mg tablet 4 mg PO BID #60 tab 08/03/21 08/03/21 Unknown Rx levetiracetam 750 mg tablet 1,500 mg PO BID #360 tab 08/03/21 08/03/21 Unknown Rx (Keppra) Allergies Allergy/AdvReac Type Severity Reaction Status Date / Time No Known Allergies Allergy Verified 08/03/21 11:50 PFSH Acute PFSH: Medical History Atrial fibrillation COPD (chronic obstructive pulmonary disease) 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 Hypertension Hypothyroidism Mild cognitive impairment Polycythemia Receptive aphasia Secondarily generalized seizures Toxic encephalopathy Surgical History History of hernia repair Family History Other Cancer Social History Smoking and tobacco status: never smoked Alcohol intake: current Alcohol intake frequency: 0-2 Drinks per Day Alcohol type: hard liquor Vitals/I&O/Wt Last Vital Signs Pulse 88 12/27/21 16:44 Resp 18 12/27/21 16:44 Pulse Ox 94 12/27/21 16:44 Weight last 48 hrs Weight 112.491 kg Physical Exam Narrative: Patient is laying without any discomfort Saturating well on 2 L nasal cannula Hemodynamically stable A. fib without RVR Abdomen soft He is able to draw clock however cannot appreciate anything on the left side And attrition between right and left He had left-sided neglect He is able to move all of his extremities without difficulty Mild weakness of left arm and leg noted Dysarthria Verbally redirectable He does show frustration with word finding difficulty No active seizures Data : 12/27/21 17:45 A&P Assessment and plan (1) Alzheimer disease: Status: Acute (2) Focal epilepsy with impairment of consciousness, intractable: Status: Acute (3) Generalized epilepsy: Status: Acute (4) Breakthrough seizure: Status: Acute Plan Breakthrough seizure History of focal complex epilepsy Dose of Depakote has been increased to 1000 mg twice daily continue Keppra 1500 mg twice daily Requested Depakote and Keppra level Left-sided weakness from previous stroke I do not believe he is suffering from a new cerebrovascular ischemic event He has history of A. fib Continue Eliquis but I would recommend 2.5 mg twice daily due to his chronic kidney disease He have left-sided weakness and neglect Receptive aphasia Fall: I do believe because of his left-sided neglect patient fell, it could be related to his breakthrough seizure episode however his seizures were witnessed by his staff and the in the ER but not at home Hypothyroid: Continue levothyroxine Hypertensive: I would use amlodipine and metoprolol and hold lisinopril because of his chronic kidney disease DNR/DNI Patient is regular diet at home at the bedside DVT prophylaxis sufficed with Eliquis He does not need ICU which was his initial transfer request for concern of seizure/status epilepticus. He can be transferred safely to [facility] for now Attestations Medical Necessity Statement*: Anticipating discharge within 48 hours will need management for breakthrough seizures Time Spent in Patient Care: 40 Coding Level of Care Code Acute Purchasing Manager/Sales for [facility] Fwd Diagnoses Alzheimer disease G30.9; F02.80 Focal epilepsy with impairment of consciousness, intractable G40.219 Generalized epilepsy G40.309 Breakthrough seizure G40.919
[2021-12-27 17:49] LABS: Glucose Point of Care 103 mg/dL (70-110)
[2021-12-27 18:37] LABS: Blood Urea Nitrogen 19 mg/dL (8-23); Calcium 9.5 mg/dL (8.5-10.5); Carbon Dioxide 25 mmol/L (22-29); Chloride 98 mmol/L (98-107); Glomerular Filtration Rate 66.2 mL/min (90-130); Glucose 107 mg/dL (65-115); Osmolality Calculated 283 mOsm/kg (285-295); Sodium 135 mmol/L (136-145)
[2021-12-27 19:04] LABS: Anion Gap 16.8 (5-19); Potassium 4.8 mmol/L (3.5-5.1)
[2021-12-27 20:00] VITALS: PULSE 90; RESP 18; O2SAT 93
[2021-12-27 20:25] LABS: Glucose Point of Care 125 mg/dL (70-110)
[2021-12-27] MEDS: levETIRAcetam 500 mg Tablet 1000 MG PO (21:14)
[2021-12-27] MEDS: apixaban 5 mg Tablet 2.5 MG PO (21:15)
[2021-12-27 22:00] VITALS: PULSE 86
[2021-12-28 05:28] VITALS: PULSE 88
[2021-12-28 07:23] LABS: Basophils % 0.2 %; Eosinophils # 0.1 10^3/uL (0.0-0.8); Eosinophils % 1.7 %; Hematocrit 55.5 % (42.0-52.0); Lymphocytes # 0.9 10^3/uL (0.8-4.8); Lymphocytes % 10.6 %; Mean Corpuscular HGB Conc 34.2 g/dL (30.0-36.0); Mean Corpuscular Hemoglobin 31.9 pg (28.0-34.0); Mean Corpuscular Volume 93.3 fl (80-94); Monocytes # 1.5 10^3/uL (0.2-0.9); Monocytes % 18.2 %; Neutrophils # 5.78 10^3/uL (1.8-7.7); Neutrophils % 68.7 %; Nucleated Red Blood Cells % 0 %; Platelet Count 158 10^3/cmm (130-400); Red Blood Count 5.95 10^6/uL (4.1-5.3); Red Cell Distribution Width 13.5 % (12.1-15.1); White Blood Count 8.4 10^3/uL (4.0-10.0)
[2021-12-28 07:33] LABS: Glucose Point of Care 105 mg/dL (70-110)
[2021-12-28 07:43] LABS: Blood Urea Nitrogen 20 mg/dL (8-23); Calcium 9.8 mg/dL (8.5-10.5); Carbon Dioxide 23 mmol/L (22-29); Chloride 97 mmol/L (98-107); Glomerular Filtration Rate 54.6 mL/min (90-130); Glucose 100 mg/dL (65-115); Magnesium 1.9 mg/dL (1.7-2.3)
[2021-12-28 07:44] LABS: Potassium 4.7 mmol/L (3.5-5.1)
[2021-12-28 08:00] VITALS: PULSE 90; RESP 18; O2SAT 94
[2021-12-28] MEDS: apixaban 5 mg Tablet 2.5 MG PO ×2 (08:42→20:20)
[2021-12-28] MEDS: amlodipine 10 mg Tablet PO (08:42)
[2021-12-28] MEDS: divalproex ER 500 mg Tablet (24H) PO (08:43)
[2021-12-28] MEDS: levETIRAcetam 500 mg Tablet 1000 MG PO (08:43)
[2021-12-28] MEDS: metoprolol succinate ER (24 HR) 50 mg Tablet PO (08:44)
--- NOTE | 2021-12-28 09:08 | PC.NURSE ---
8264 Patient has been worried about his , and gets tearful when saying how much he loves her. Also times of confusion, talking about a hotel and needing that phone number. has now arrived here, and patient is very relieved to see her.
[2021-12-28 10:34] LABS: Anion Gap 18.7 (5-19); Osmolality Calculated 281 mOsm/kg (285-295); Sodium 134 mmol/L (136-145)
[2021-12-28 10:59] LABS: Alcohol Level < 10 mg/dL (0-10)
[2021-12-28 11:14] LABS: Valproic Acid Level 13.7 ug/mL (50-100)
[2021-12-28 13:49] LABS: Glucose Point of Care 79 mg/dL (70-110)
[2021-12-28] MEDS: folic acid 1 mg Tablet PO (13:51)
[2021-12-28] MEDS: atorvastatin 40 mg Tablet 20 MG PO (13:51)
[2021-12-28] MEDS: levothyroxine 100 mcg Tablet PO (13:51)
[2021-12-28] MEDS: thiamine 100 mg Tablet PO (13:51)
[2021-12-28 14:56] VITALS: PULSE 85; RESP 16; O2SAT 95
--- NOTE | 2021-12-28 15:47 | PM.PN ---
Subjective Subjective: No events overnight Vitals/I&O/Wt Last Vital Signs Pulse 85 12/28/21 14:56 Resp 16 12/28/21 14:56 Pulse Ox 95 12/28/21 14:56 12/28/21 12/28/21 12/28/21 06:59 14:59 22:59 Intake Total 60 / 60 Output Total 550 / 1300 375 / 375 Balance -550 / -1150 -315 / -315 Weight last 48 hrs Weight 112.491 kg Physical Exam Narrative: Left-sided weakness, left-sided neglect Dysarthria Awake and alert Known deficits No new deficits noted Abdomen soft Awake and alert Hemodynamically stable S1, S2 variable Euvolemic Data : 12/28/21 06:40 12/28/21 06:40 A&P Assessment and plan (1) Breakthrough seizure: Status: Acute (2) Alzheimer disease: Status: Acute (3) Focal epilepsy with impairment of consciousness, intractable: Status: Acute (4) Generalized epilepsy: Status: Acute Plan He does have low Depakote level Continue Keppra 1500 mg twice a day along Depakote 1 g twice daily A. fib continue Eliquis Discharge tomorrow Attestations Medical Necessity Statement*: Discharge tomorrow Time Spent in Patient Care: 15 Coding Level of Care Code Acute Director Of Institutional Giving for [facility] Diagnoses Breakthrough seizure G40.919 Alzheimer disease G30.9; F02.80 Focal epilepsy with impairment of consciousness, intractable G40.219 Generalized epilepsy G40.309
--- NOTE | 2021-12-28 15:56 | PC.NURSE ---
1555 Transfer patient via w/c to 250-2 with at bedside. Reconnected to O2 at 2l in 250-2. No c/o's.
[2021-12-28 17:06] LABS: Glucose Point of Care 86 mg/dL (70-110)
[2021-12-28] MEDS: divalproex ER 500 mg Tablet (24H) 1000 MG PO (17:39)
[2021-12-28] MEDS: levETIRAcetam 500 mg Tablet 1500 MG PO (17:40)
--- NOTE | 2021-12-28 18:59 | PC.NURSE ---
Bedside report to [facility] at this time.
[2021-12-28 19:30] VITALS: BP 124/83; PULSE 75; RESP 18; TEMP 36.8; O2SAT 90
[2021-12-28 20:00] VITALS: PULSE 84; RESP 15; O2SAT 94
[2021-12-28 21:58] LABS: Glucose Point of Care 95 mg/dL (70-110)
[2021-12-28 23:23] VITALS: BP 120/80; PULSE 77; RESP 18; TEMP 36.8; O2SAT 94
[2021-12-28 23:37] LABS: Amphetamines Screen Urine Negative (Negative); Barbiturates Screen Urine Positive (Negative); Benzodiazepines Screen Urine Positive (Negative); Cocaine Screen Urine Negative (Negative); Opiate Screen Urine Negative (Negative); PCP Screen Urine Negative (Negative); THC Screen Urine Positive (Negative)
[2021-12-29 05:10] VITALS: BP 107/63; PULSE 69; RESP 14; TEMP 36.8; O2SAT 88
[2021-12-29 07:36] LABS: Glucose Point of Care 88 mg/dL (70-110)
[2021-12-29 08:00] VITALS: BP 123/87; PULSE 73; RESP 16; TEMP 36.4; O2SAT 93
[2021-12-29 08:14] LABS: Levetiracetam Immunoassy 13.9 mcg/mL (6.0-46.0)
[2021-12-29 08:15] VITALS: PULSE 92; RESP 18; O2SAT 92
[2021-12-29] MEDS: albuterol 8 gm MDI 2 PUFF INHALATION (08:15)
[2021-12-29 08:20] VITALS: PULSE 90
[2021-12-29] MEDS: levETIRAcetam 500 mg Tablet 1500 MG PO (08:24)
[2021-12-29] MEDS: atorvastatin 40 mg Tablet 20 MG PO (08:24)
[2021-12-29] MEDS: folic acid 1 mg Tablet PO (08:24)
[2021-12-29] MEDS: divalproex ER 500 mg Tablet (24H) 1000 MG PO (08:24)
[2021-12-29] MEDS: metoprolol succinate ER (24 HR) 50 mg Tablet PO (08:25)
[2021-12-29] MEDS: amlodipine 10 mg Tablet PO (08:25)
[2021-12-29] MEDS: thiamine 100 mg Tablet PO (08:25)
--- NOTE | 2021-12-29 08:26 | P.DS_ITS ---
Discharge Providers Date of Admission: 12/27/21 18:26 Date of Discharge: December 29, 2021 Attending Provider at Admission: Debbie Mendes MD Attending Provider at Discharge: Edward Tomlin MD Primary Care Provider: Gonzalo Linares Diagnoses at Discharge Discharge Diagnosis (1) Alzheimer disease: Status: Acute (2) Focal epilepsy with impairment of consciousness, intractable: Status: Acute (3) Generalized epilepsy: Status: Acute (4) Breakthrough seizure: Status: Acute Reason for Visit Reason for Visit: seizures Hospital Course Hospital Course 73 male who presented from [facility] after his breakthrough seizure. This was witnessed by the ER physician. He received Dilantin 1 g and Valium 15 mg 20 mg in the ER. He was transferred to our facility with Dr. Mendes excepted him because Dr. Mccallum had seen him before. Recently he was evaluated at [facility] for his recent CVA event. He does have left-sided neglect, left arm and leg weakness. Patient and his were not aware of left-sided visual field neglect. In my opinion this most likely caused a fall from his bed. At home no seizure-like episodes were noticed. Dr. Mccallum was notified at the time of admission who recommended increasing the dose of Depakote to 1000 mg twice daily And continuing Keppra 1500 mg twice daily. We requested antiepileptic levels. His head CT was done at outside facility which was unremarkable. His stroke work-up was done on 11/10/2021 at [facility]. Valproic acid level 13.7, Keppra level 13 Patient drug screen came back positive for THC as well. Physical Exam Narrative: Left-sided neglect Left arm and leg weakness Pleasant and cooperative He does show frustration with word finding difficulty Dysarthria present, Variable S1-S2 abdomen soft no audible stridor or wheezing Discharge Data Studies Completed and Pending Laboratory Results WBC 8.4 10^3/uL (4.0-10.0) 12/28/21 06:40 RBC 5.95 10^6/uL (4.1-5.3) H 12/28/21 06:40 Hgb 19.0 g/dL (11.7-16.6) H 12/28/21 06:40 Hct 55.5 % (42.0-52.0) H 12/28/21 06:40 MCV 93.3 fl (80-94) 12/28/21 06:40 MCH 31.9 pg (28.0-34.0) 12/28/21 06:40 MCHC 34.2 g/dL (30.0-36.0) 12/28/21 06:40 RDW 13.5 % (12.1-15.1) 12/28/21 06:40 Plt Count 158 10^3/cmm (130-400) 12/28/21 06:40 MPV 11.0 fL (7.4-10.4) H 12/28/21 06:40 Neut % (Auto) 68.7 % 12/28/21 06:40 Lymph % (Auto) 10.6 % 12/28/21 06:40 Kidder % (Auto) 18.2 % 12/28/21 06:40 Eos % (Auto) 1.7 % 12/28/21 06:40 Baso % (Auto) 0.2 % 12/28/21 06:40 Neut # (Auto) 5.78 10^3/uL (1.8-7.7) 12/28/21 06:40 Lymph # (Auto) 0.9 10^3/uL (0.8-4.8) 12/28/21 06:40 Kidder # (Auto) 1.5 10^3/uL (0.2-0.9) H 12/28/21 06:40 Eos # (Auto) 0.1 10^3/uL (0.0-0.8) 12/28/21 06:40 Baso # (Auto) 0.0 10^3/uL (0.0-0.1) 12/28/21 06:40 Nucleated RBC % (auto) 0 % 12/28/21 06:40 Nucleated RBCs # 0.0 /100WBC 12/28/21 06:40 Sodium 134 mmol/L (136-145) L 12/28/21 06:40 Potassium 4.7 mmol/L (3.5-5.1) 12/28/21 06:40 Chloride 97 mmol/L (98-107) L 12/28/21 06:40 Carbon Dioxide 23 mmol/L (22-29) 12/28/21 06:40 Anion Gap 18.7 (5-19) 12/28/21 06:40 BUN 20 mg/dL (8-23) 12/28/21 06:40 Creatinine 1.3 mg/dL (0.7-1.2) H 12/28/21 06:40 GFR Calculation 54.6 mL/min (90-130) L 12/28/21 06:40 Glucose 100 mg/dL (65-115) 12/28/21 06:40 POC Glucose 88 mg/dL (70-110) 12/29/21 07:28 Calculated Osmolality 281 mOsm/kg (285-295) L 12/28/21 06:40 Calcium 9.8 mg/dL (8.5-10.5) 12/28/21 06:40 Magnesium 1.9 mg/dL (1.7-2.3) 12/28/21 06:40 Urine Opiates Screen Negative ng/mL (Negative) 12/28/21 23:20 Ur Barbiturates Screen Positive ng/mL (Negative) H 12/28/21 23:20 Valproic Acid 13.7 ug/mL (50-100) L 12/28/21 06:40 Levetiracetam 13.9 mcg/mL (6.0-46.0) 12/28/21 06:40 Ur Phencyclidine Scrn Negative ng/mL (Negative) 12/28/21 23:20 Ur Amphetamines Screen Negative ng/mL (Negative) 12/28/21 23:20 U Benzodiazepines Scrn Positive ng/mL (Negative) H 12/28/21 23:20 Urine Cocaine Screen Negative ng/mL (Negative) 12/28/21 23:20 U Marijuana (THC) Screen Positive ng/mL (Negative) H 12/28/21 23:20 Ethyl Alcohol < 10 mg/dL (0-10) 12/28/21 06:40 Vitals Last Vital Signs Temp 97.6 F 12/29/21 08:00 Pulse 73 12/29/21 08:00 Resp 16 12/29/21 08:00 BP 123/87 12/29/21 08:00 Pulse Ox 93 12/29/21 08:00 O2 Del Method 12/29/21 05:10 O2 Flow Rate 2 12/28/21 20:00 Discharge Plan Discharge Patient Disposition: Home Health Service Condition: Stable Prescriptions: Continued midazolam 5 mg/spray (0.1 mL) spray,non-aerosol 1 spray intranasal ONCE Qty: 1 5RF lorazepam [Lorazepam Intensol] 2 mg/mL concentrate 2 mg sublingual DAILY PRN (Reason: seizure activity) Qty: 30 2RF atorvastatin 20 mg tablet 20 mg PO DAILY galantamine 4 mg tablet 4 mg PO BID Qty: 60 3RF Rx Instructions: administer with AM and PM meals apixaban 5 mg tablet 5 mg PO BID albuterol sulfate [ProAir HFA] 90 mcg/actuation Hfa Aerosol Inhaler 2 puff INHALATION Q6H PRN (Reason: Shortness Of Breath) metoprolol succinate 50 mg tablet extended release 24 hr 50 mg PO DAILY Qty: 30 3RF levothyroxine 175 mcg Tablet 175 mcg PO DAILY Advair Diskus 250-50 mcg/dose Blister With Device 1 inh INHALATION BID sildenafil 100 mg Tablet 100 mg PO DAILY PRN (Reason: Sexual Activity) Rx Instructions: administer 30 minutes to 4 hours before activity Vitamin D3 25 mcg (1,000 unit) Capsule 25 mcg PO DAILY Keppra 750 mg tablet 1,500 mg PO BID Qty: 400 4RF Changed Depakote ER 500 mg tablet extended release 24 hr 1,000 mg PO BID Qty: 240 2RF Rx Instructions: Instead of Zonegran Discharge Orders: Discharge Order (Routine); Ordered 12/29/21 Ordered By: Edward Tomlin Referrals: [facility] [Other] Lisa Mccallum MD [Physician] - 01/03/22 12:15 pm Singh England APRN [Referring] - (phone [phone]. Will call with an ap pointment) Patient Instructions: Divalproex (By mouth), Epilepsy (IP), Seizures Discharge Attestations Time Spent in Discharge Care*: less than 30 min Status at Discharge: Cognitive status at discharge: cognitively intact , Behavioral status at discharge: cooperative , Quality Metrics Clinical Quality Measures [ No reported AMI, CVA or VTE this stay] Coding Level of Care Code Acute Chg FW MI note Diagnoses Alzheimer disease G30.9; F02.80 Focal epilepsy with impairment of consciousness, intractable G40.219 Generalized epilepsy G40.309 Breakthrough seizure G40.919
[2021-12-29] MEDS: apixaban 5 mg Tablet 2.5 MG PO (08:28)
[2021-12-29] MEDS: levothyroxine 100 mcg Tablet PO (08:28)
--- NOTE | 2021-12-29 10:48 | PC.NURSE ---
patient and verbalized understanding of discharge instructions, home medications, and follow up appointments.
[2021-12-29 10:49] VITALS: PULSE 90
== END 2021-12-29 10:56 | disposition home health service (06) ==
LOC: ICU 12-28 08:21 → MEDSURG 12-28 15:54
PROVIDERS: Admitting Provider Hospitalist; PCP Nurse Practitioner Family; Visit Provider Internal Medicine
DX: G30.9 Alzheimer's disease, unspecified (principal); F02.80 Dementia in other diseases classified elsewhere, unspecified severity, without behavioral disturbance, psychotic disturbance, mood disturbance, and anxiety; G40.219 Localization-related (focal) (partial) symptomatic epilepsy and epileptic syndromes with complex partial seizures, intractable, without status epilepticus; G40.309 Generalized idiopathic epilepsy and epileptic syndromes, not intractable, without status epilepticus; G40.919 Epilepsy, unspecified, intractable, without status epilepticus; I48.91 Unspecified atrial fibrillation; J44.9 Chronic obstructive pulmonary disease, unspecified; I10 Essential (primary) hypertension; E03.9 Hypothyroidism, unspecified; Z66 Do not resuscitate
CPT/HCPCS: 36415; 36416; 80048; 80164; 80177; 80306; 80307; 82962; 83735; 85025; 94640; 97161; 97530; G0378; G0379; J3535

== ENCOUNTER → 2022-01-03 12:21 | Outpatient (BNVA) | payer OTHER, SELFPAY | PROVIDERS: PCP Nurse Practitioner Family; Visit Provider Specialist | DX: G40.211 Localization-related (focal) (partial) symptomatic epilepsy and epileptic syndromes with complex partial seizures, intractable, with status epilepticus (principal); G40.301 Generalized idiopathic epilepsy and epileptic syndromes, not intractable, with status epilepticus; I48.91 Unspecified atrial fibrillation; G30.9 Alzheimer's disease, unspecified; F02.80 Dementia in other diseases classified elsewhere, unspecified severity, without behavioral disturbance, psychotic disturbance, mood disturbance, and anxiety | CPT/HCPCS: 80164; 80177; 99215 ==

== ENCOUNTER 2022-02-14 17:35 | Inpatient (IN) | payer OTHER, SELFPAY ==
[2022-02-14] VITALS (29 sets, daily range): BP systolic 108–162; BP diastolic 71–123; PULSE 74–91; RESP 17–38; TEMP 36.8; O2SAT 91–98; BMI 31.6
--- NOTE | 2022-02-14 | CTR_ITS ---
PROCEDURE INFORMATION: Exam: CT Head Without Contrast Exam date and time: 02/14/2022 5:42 PM Age: 71 years old Clinical indication: Altered mental status/memory loss and weakness, extremity; Left; Additional info: Left side weakness, possible CVA TECHNIQUE: Imaging protocol: Computed tomography of the head without contrast. Radiation optimization: All CT scans at this facility use at least one of these dose optimization techniques: automated exposure control; mA and/or kV adjustment per patient size (includes targeted exams where dose is matched to clinical indication); or iterative reconstruction. Other technique: STROKE PROTOCOL was implemented. COMPARISON: CT head wo con* [id number] 10/15/2020 7:47 AM RADIATION DOSE METRICS: Total DLP (mGy-cm): 1184.38 FINDINGS: Brain: No hemorrhage. No edema. Moderate diffuse cerebral atrophy and sequela of chronic small vessel ischemic disease. No mass effect. Cerebral ventricles: No ventriculomegaly. Paranasal sinuses: Visualized sinuses are unremarkable. No fluid levels. Mastoid air cells: Visualized mastoid air cells are well aerated. Bones/joints: Unremarkable. No acute fracture. Soft tissues: Unremarkable. CT/CT head wo con* [id number] IMPRESSION: No acute intracranial abnormality. ASSESSMENT: ASPECTS ([place] Stroke Program Early CT Score) is 10.
--- NOTE | 2022-02-14 17:51 | ECG_ITS ---
[facility] Test Date: 2022-02-14 Pat Name: Orion Varghese Department: Room: Gender: Male Paper Feeder: : 1950 Requested By: Kong Temple Order Number: [id number] Kevin MD: Ziyad Reyes M.D. Measurements Intervals [place] Rate: 77 P: 54 MI: 172 QRS: 73 QRSD: 105 T: 80 QT: 364 QTc: 414 Interpretive Statements SINUS RHYTHM WITH OCCASIONAL VENTRICULAR PREMATURE COMPLEXES Compared to ECG 10/13/2020 16:11:38 Ventricular premature complex(es) now present Intraventricular conduction delay no longer present Electronically Signed On 02-14-2022 21:51:24 CDT by Ziyad Reyes M.D. [email or web address]
--- NOTE | 2022-02-14 17:51 | CTR_ITS ---
PROCEDURE INFORMATION: Exam: CTA Head With Contrast, Arteriography Exam date and time: 02/14/2022 6:23 PM Age: 71 years old Clinical indication: Weakness and other: Left sided weakness; Additional info: L sided weakness TECHNIQUE: Imaging protocol: Computed tomographic angiography of the head with contrast. Exam focused on the arteries. 3D rendering (Not supervised by radiologist): MIP and/or 3D reconstructed images were created by the technologist. Radiation optimization: All CT scans at this facility use at least one of these dose optimization techniques: automated exposure control; mA and/or kV adjustment per patient size (includes targeted exams where dose is matched to clinical indication); or iterative reconstruction. Contrast material: OMNI 350; Contrast volume: 95 ml; Contrast route: INTRAVENOUS (IV); COMPARISON: CT HEAD 02/14/2022 5:42 PM RADIATION DOSE METRICS: Total DLP (mGy-cm): 544.12 FINDINGS: Limitations: Motion limited exam. ANTERIOR CIRCULATION: Right internal carotid artery: Intracranial segment is patent with no significant stenosis. No aneurysm. Right middle cerebral artery: No occlusion or significant stenosis. No aneurysm. Right anterior cerebral artery: No occlusion or significant stenosis. No aneurysm. Left internal carotid artery: Intracranial segment is patent with no significant stenosis. No aneurysm. Left middle cerebral artery: No occlusion or significant stenosis. No aneurysm. Left anterior cerebral artery: No occlusion or significant stenosis. No aneurysm. POSTERIOR CIRCULATION: Right vertebral artery: No occlusion or significant stenosis. No aneurysm. Left vertebral artery: No occlusion or significant stenosis. No aneurysm. Basilar artery: No occlusion or significant stenosis. No aneurysm. Right posterior cerebral artery: No occlusion or significant stenosis. No aneurysm. Left posterior cerebral artery: No occlusion or significant stenosis. No aneurysm. Brain: No definite mass, mass effect, or midline shift. Cerebral ventricles: No ventriculomegaly. Bones/joints: Unremarkable. No acute fracture. Soft tissues: Unremarkable. PROCEDURE INFORMATION: Exam: CTA Neck With Contrast Exam date and time: 02/14/2022 6:23 PM Age: 71 years old Clinical indication: Weakness and other: Left sided weakness; Additional info: L sided weakness TECHNIQUE: Imaging protocol: Computed tomographic angiography of the neck with contrast. 3D rendering (Not supervised by radiologist): MIP and/or 3D reconstructed images were created by the technologist. Radiation optimization: All CT scans at this facility use at least one of these dose optimization techniques: automated exposure control; mA and/or kV adjustment per patient size (includes targeted exams where dose is matched to clinical indication); or iterative reconstruction. Contrast material: OMNI 350; Contrast volume: 95 ml; Contrast route: INTRAVENOUS (IV); COMPARISON: CT HEAD 02/14/2022 5:42 PM RADIATION DOSE METRICS: Total DLP (mGy-cm): 544.12 FINDINGS: Limitations: Motion limited exam. Right common carotid artery: No stenosis. No dissection or occlusion. Right internal carotid artery: No stenosis of the extracranial segment. No dissection or occlusion. Right external carotid artery: No occlusion or stenosis of the origin. Left common carotid artery: No stenosis. No dissection or occlusion. Left internal carotid artery: No stenosis of the extracranial segment. No dissection or occlusion. Left external carotid artery: No occlusion or stenosis of the origin. Right vertebral artery: No stenosis. No dissection or occlusion. Left vertebral artery: No stenosis. No dissection or occlusion. Soft tissues: Normal. No significant soft tissue swelling. Bones/joints: No acute fracture. CT/CT angio headne* [id number] IMPRESSION: Motion limited exam. No evident large vessel stenosis or occlusion. IMPRESSION: Motion limited exam. No evident stenosis or occlusion. REFERENCES: NASCET CRITERIA. The degree of stenosis in the cervical segment of the internal carotid artery is based on NASCET criteria. Normal is no stenosis. Mild is less than 50% stenosis. Moderate is 50-69% stenosis. Severe is 70% to 99% stenosis. Total occlusion is no detectable patent lumen.
--- NOTE | 2022-02-14 18:01 | W.ED.NEUROSD ---
Documented by User: Kong Wahl DO 02/15/22 06:03 HPI - Neuro Symptoms/Deficit General: Chief Complaint: Neuro Symptoms/Deficit Stated Complaint: STROKE ALERT Time Seen by Provider: 02/14/22 17:51 Source: patient Mode of arrival: EMS History of Present Illness: 71-year-old male comes in via [facility] with a stroke alert. Last known well 1625. Patient has a history of dementia and his last neurology note he scored 16 out of 30. He is complaining left-sided weakness and left facial droop. He also has a history of seizures has had similar presentations in the past. When stroke alert was called and notified Dr. Mccallum she presented to the emergency room and seen the patient reviewed her notes and gave us that history. She is well acquainted with him. He is on Eliquis therefore not a candidate for tPA we are doing a CTA of his head and neck. Patient requested transfer to our facility because she is acquainted with Dr. 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, intractable Generalized epilepsy Generalized epilepsy Hypertension Hypothyroidism Mild cognitive impairment Polycythemia Receptive aphasia Secondarily generalized seizures Toxic encephalopathy Surgical History History of hernia repair Family History Other Cancer Social History Smoking and tobacco status: never smoked Alcohol intake: current Alcohol intake frequency: 0-2 Drinks per Day Alcohol type: hard liquor NIH stroke score NIHSS: Level Of Consciousness - 1a: 2 Level Of Consciousness Questions - 1b: Neither Correct Level Of Consciousness Commands - 1c: Both Correct Best Gaze - 2: Partial Gaze Palsy Visual Bernal - 3: No Visual Loss Facial Palsy - 4: Minor Paralysis Motor Arm Right - 5: No Drift Motor Arm Left - 5: No Effort Against [place] Motor Leg Right - 6: No Drift Motor Leg Left - 6: Drift Limb Ataxia - 7: Present In Two Limbs Sensory - 8: Normal Best Language - 9: Mild/Moderate Aphasia Dysarthia - 10: Mild/Moderate Dysarthia Extinction And Inattention - 11: 1 Score: Total Score: 15 Physical Exam Const: GENERAL APPEARANCE: cooperative and comfortable Resp: COMMON NORMALS: normal respiratory effort, No retractions, No use of accessory muscles and clear to auscultation bilaterally AUSCULTATION: clear to auscultation bilaterally Cardio: COMMON NORMALS: regular rate, regular rhythm and No murmurs present (Cardio) RATE: regular rate RHYTHM: regular rhythm GI: COMMON NORMALS: Soft to palpation and No hepatosplenomegaly present AUSCULTATION: Yes normoactive bowel sounds PALPATION: Yes Soft to palpation, No Tenderness to palpation present (GI), No Guarding due to palpation present (GI) and Yes No hepatosplenomegaly present OTHER: Nominal wall distorted with severe rectus diastasis and deterioration of abdominal wall muscles contents protruding bowel sounds positive nontender Extremity: COMMON NORMALS: normal to inspection, capillary refill normal, no clubbing, cyanosis or edema, no calf tenderness and no pedal edema Course Vital Signs: Vital signs: Vital Signs Temperature 98.8 F 02/15/22 04:15 Pulse Rate 88 02/15/22 05:41 Respiratory Rate 31 H 02/15/22 04:15 Blood Pressure 122/83 02/15/22 04:15 Pulse Oximetry 97 02/15/22 04:15 Oxygen Delivery Me thod 02/15/22 00:26 Oxygen Flow Rate 4 02/14/22 21:10 MDM - Neuro Symptoms/Deficit Medical Decision Making See Dr. Mccallum's consultation note. Patient likely postictal he has had episodes like this before, David's paralysis. Waiting on CTA. Care signed out to Dr. Juan at change of shift. See final notes for diagnosis and disposition. Patient presents with status epilepticus likely with David's paralysis as well CT head CTA here normal continue to have focal seizures here did load him with Keppra along with Vimpat seizure have since resolved spoke to hospitalist will admit at this time neurology is consulted as well. Lab Data : 02/15/22 02:58 02/15/22 02:[address] 02/14/22 00:00 IMPRESSION: No acute intracranial abnormality. ASSESSMENT: ASPECTS ([place] Stroke Program Early CT Score) is 10. Head/Neck CTA 02/14/22 17:51 IMPRESSION: Motion limited exam. No evident large vessel stenosis or occlusion. IMPRESSION: Motion limited exam. No evident stenosis or occlusion. REFERENCES: NASCET CRITERIA. The degree of stenosis in the cervical segment of the internal carotid artery is based on NASCET criteria. Normal is no stenosis. Mild is less than 50% stenosis. Moderate is 50-69% stenosis. Severe is 70% to 99% stenosis. Total occlusion is no detectable patent lumen. Chest X-Ray 02/14/22 21:23 IMPRESSION: Sequela of COPD. No consolidation. Laboratory Results WBC 7.7 10^3/uL (4.0-10.0) 02/14/22 18:05 RBC 5.77 10^6/uL (4.1-5.3) H 02/14/22 18:05 Hgb 18.6 g/dL (11.7-16.6) H 02/14/22 18:05 Hct 56.8 % (42.0-52.0) H 02/14/22 18:05 MCV 98.4 fl (80-94) H 02/14/22 18:05 MCH 32.2 pg (28.0-34.0) 02/14/22 18:05 MCHC 32.7 g/dL (30.0-36.0) 02/14/22 18:05 RDW 13.0 % (12.1-15.1) 02/14/22 18:05 Plt Count 145 10^3/cmm (130-400) 02/14/22 18:05 MPV 10.2 fL (7.4-10.4) 02/14/22 18:05 Neut % (Auto) 70.7 % 02/14/22 18:05 Lymph % (Auto) 9.7 % 02/14/22 18:05 [place] % (Auto) 16.1 % 02/14/22 18:05 Eos % (Auto) 2.6 % 02/14/22 18:05 Baso % (Auto) 0.5 % 02/14/22 18:05 Neut # (Auto) 5.44 10^3/uL (1.8-7.7) 02/14/22 18:05 Lymph # (Auto) 0.8 10^3/uL (0.8-4.8) 02/14/22 18:05 [place] # (Auto) 1.2 10^3/uL (0.2-0.9) H 02/14/22 18:05 Eos # (Auto) 0.2 10^3/uL (0.0-0.8) 02/14/22 18:05 Baso # (Auto) 0.0 10^3/uL (0.0-0.1) 02/14/22 18:05 Nucleated RBC % (auto) 0 % 02/14/22 18:05 Nucleated RBCs # 0.0 /100WBC 02/14/22 18:05 PT 12.70 SECONDS (12.1-14.9) 02/14/22 18:05 INR 0.93 (0.8-1.2) 02/14/22 18:05 APTT 28.1 SECONDS (23.9-36.7) 02/14/22 18:05 Sodium 136 mmol/L (136-145) 02/14/22 18:05 Potassium 4.8 mmol/L (3.5-5.1) 02/14/22 18:05 Chloride 102 mmol/L (98-107) 02/14/22 18:05 Carbon Dioxide 25 mmol/L (22-29) 02/14/22 18:05 Anion Gap 13.8 (5-19) 02/14/22 18:05 BUN 12 mg/dL (8-23) 02/14/22 18:05 Creatinine 1.1 mg/dL (0.7-1.2) 02/14/22 18:05 GFR Calculation 66.2 mL/min (90-130) L 02/14/22 18:05 Glucose 99 mg/dL (65-115) 02/14/22 18:05 POC Glucose 94 mg/dL (70-110) 02/14/22 17:54 Calculated Osmolality 282 mOsm/kg (285-295) L 02/14/22 18:05 Calcium 9.6 mg/dL (8.5-10.5) 02/14/22 18:05 Total Bilirubin 0.9 mg/dL (0.15-1.2) 02/14/22 18:05 AST 27 U/L (0-40) 02/14/22 18:05 ALT 23 U/L (0-41) 02/14/22 18:05 Alkaline Phosphatase 43 U/L (40-130) 02/14/22 18:05 C-Reactive Protein 10.8 mg/L (0.0-4.9) H 02/14/22 21:23 Total Protein 7.0 g/dL (6.6-8.7) 02/14/22 18:05 Albumin 4.0 g/dL (3.5-5.2) 02/14/22 18:05 Globulin 3.0 g/dL (1.3-4.6) 02/14/22 18:05 Procalcitonin 0.06 ng/mL (0-0.5) 02/14/22 21:23 Urine Color Yellow (Yellow) 02/14/22 19:49 Urine Appearance Clear (CLEAR) 02/14/22 19:49 Urine pH 6 (5-7) 02/14/22 19:49 Ur Specific [place] 1.010 (1.005-1.030) 02/14/22 19:49 Urine Protein Neg (Negative) 02/14/22 19:49 Urine Glucose (UA) Norm (Normal) 02/14/22 19:49 Urine Ketones 1+ (Negative) H 02/14/22 19:49 Urine Blood 2+ (Negative) H 02/14/22 19:49 Urine Nitrate Negative (Negative) 02/14/22 19:49 Urine Bilirubin Neg (Negative) 02/14/22 19:49 Urine Urobilinogen Norm mg/dL (Negative) 02/14/22 19:49 Ur Leukocyte Esterase Negative (Negative) 02/14/22 19:49 Urine RBC 0-4 /hpf (0-2) H 02/14/22 19:49 Urine WBC None /hpf (0-5) 02/14/22 19:49 Ur Squamous Epith Cells 0-4 /hpf (0-5) H 02/14/22 19:49 Ur Transition Epith Cell None /hpf 02/14/22 19:49 Ur Renal Epithelial Cell N /hpf 02/14/22 19:49 Calcium Oxalate Crystal None /hpf 02/14/22 19:49 Uric Acid Crystals N /hpf 02/14/22 19:49 Triple Phos Crystals None /hpf 02/14/22 19:49 Other Crystals N /hpf 02/14/22 19:49 Amorphous Sediment Not Reportable 02/14/22 19:49 Urine Bacteria None /hpf (NONE) 02/14/22 19:49 Urine Mucus N /hpf 02/14/22 19:49 Urine Opiates Screen Negative ng/mL (Negative) 02/14/22 19:49 Ur Barbiturates Screen Negative ng/mL (Negative) 02/14/22 19:49 Valproic Acid 49.7 ug/mL (50-100) L 02/14/22 18:45 Ur Phencyclidine Scrn Negative ng/mL (Negative) 02/14/22 19:49 Ur Amphetamines Screen Negative ng/mL (Negative) 02/14/22 19:49 U Benzodiazepines Scrn Negative ng/mL (Negative) 02/14/22 19:49 Urine Cocaine Screen Negative ng/mL (Negative) 02/14/22 19:49 U Marijuana (THC) Screen Positive ng/mL (Negative) H 02/14/22 19:49 Discharge Plan Discharge Patient Disposition: Admitted As Inpatient Admit Provider: Chilo Pacheco Clinical Impression: Status epilepticus Condition: Stable Coding Level of Care Code ED Supervisor Coke Handling for Chg Fwd Exam Detailed Documented by User: Meghann Juan MD 02/14/22 21:22 HPI - Neuro Symptoms/Deficit General: Chief Complaint: Neuro Symptoms/Deficit Stated Complaint: STROKE ALERT Time Seen by Provider: 02/14/22 17:51 PFSH ED PFSH: Medical History Alzheimer disease Atrial fibrillation COPD (chronic obstructive pulmonary disease) 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, intractable Generalized epilepsy Generalized epilepsy Hypertension Hypothyroidism Mild cognitive impairment Polycythemia Receptive aphasia Secondarily generalized seizures Toxic encephalopathy Surgical History History of hernia repair Family History Other Cancer Social History Smoking and tobacco status: never smoked Alcohol intake: current Alcohol intake frequency: 0-2 Drinks per Day Alcohol type: hard liquor NIH stroke score Score: Total Score: 15 Course Vital Signs: Vital signs: Vital Signs Temperature 98.8 F 02/15/22 04:15 Pulse Rate 88 02/15/22 05:41 Respiratory Rate 31 H 02/15/22 04:15 Blood Pressure 122/83 02/15/22 04:15 Pulse Oximetry 97 02/15/22 04:15 Oxygen Delivery Me thod 02/15/22 00:26 Oxygen Flow Rate 4 02/14/22 21:10 MDM - Neuro Symptoms/Deficit Medical Decision Making Patient presents with status epilepticus likely with David's paralysis as well CT head CTA here normal continue to have focal seizures here did load him with Keppra along with Vimpat seizure have since resolved spoke to hospitalist will admit at this time neurology is consulted as well. Lab Data : 02/15/22 02:58 02/15/22 02:[address] 02/14/22 00:00 IMPRESSION: No acute intracranial abnormality. ASSESSMENT: ASPECTS ([place] Stroke Program Early CT Score) is 10. Head/Neck CTA 02/14/22 17:51 IMPRESSION: Motion limited exam. No evident large vessel stenosis or occlusion. IMPRESSION: Motion limited exam. No evident stenosis or occlusion. REFERENCES: NASCET CRITERIA. The degree of stenosis in the cervical segment of the internal carotid artery is based on NASCET criteria. Normal is no stenosis. Mild is less than 50% stenosis. Moderate is 50-69% stenosis. Severe is 70% to 99% stenosis. Total occlusion is no detectable patent lumen. Chest X-Ray 02/14/22 21:23 IMPRESSION: Sequela of COPD. No consolidation. Laboratory Results WBC 7.7 10^3/uL (4.0-10.0) 02/14/22 18:05 RBC 5.77 10^6/uL (4.1-5.3) H 02/14/22 18:05 Hgb 18.6 g/dL (11.7-16.6) H 02/14/22 18:05 Hct 56.8 % (42.0-52.0) H 02/14/22 18:05 MCV 98.4 fl (80-94) H 02/14/22 18:05 MCH 32.2 pg (28.0-34.0) 02/14/22 18:05 MCHC 32.7 g/dL (30.0-36.0) 02/14/22 18:05 RDW 13.0 % (12.1-15.1) 02/14/22 18:05 Plt Count 145 10^3/cmm (130-400) 02/14/22 18:05 MPV 10.2 fL (7.4-10.4) 02/14/22 18:05 Neut % (Auto) 70.7 % 02/14/22 18:05 Lymph % (Auto) 9.7 % 02/14/22 18:05 [place] % (Auto) 16.1 % 02/14/22 18:05 Eos % (Auto) 2.6 % 02/14/22 18:05 Baso % (Auto) 0.5 % 02/14/22 18:05 Neut # (Auto) 5.44 10^3/uL (1.8-7.7) 02/14/22 18:05 Lymph # (Auto) 0.8 10^3/uL (0.8-4.8) 02/14/22 18:05 [place] # (Auto) 1.2 10^3/uL (0.2-0.9) H 02/14/22 18:05 Eos # (Auto) 0.2 10^3/uL (0.0-0.8) 02/14/22 18:05 Baso # (Auto) 0.0 10^3/uL (0.0-0.1) 02/14/22 18:05 Nucleated RBC % (auto) 0 % 02/14/22 18:05 Nucleated RBCs # 0.0 /100WBC 02/14/22 18:05 PT 12.70 SECONDS (12.1-14.9) 02/14/22 18:05 INR 0.93 (0.8-1.2) 02/14/22 18:05 APTT 28.1 SECONDS (23.9-36.7) 02/14/22 18:05 Sodium 136 mmol/L (136-145) 02/14/22 18:05 Potassium 4.8 mmol/L (3.5-5.1) 02/14/22 18:05 Chloride 102 mmol/L (98-107) 02/14/22 18:05 Carbon Dioxide 25 mmol/L (22-29) 02/14/22 18:05 Anion Gap 13.8 (5-19) 02/14/22 18:05 BUN 12 mg/dL (8-23) 02/14/22 18:05 Creatinine 1.1 mg/dL (0.7-1.2) 02/14/22 18:05 GFR Calculation 66.2 mL/min (90-130) L 02/14/22 18:05 Glucose 99 mg/dL (65-115) 02/14/22 18:05 POC Glucose 94 mg/dL (70-110) 02/14/22 17:54 Calculated Osmolality 282 mOsm/kg (285-295) L 02/14/22 18:05 Calcium 9.6 mg/dL (8.5-10.5) 02/14/22 18:05 Total Bilirubin 0.9 mg/dL (0.15-1.2) 02/14/22 18:05 AST 27 U/L (0-40) 02/14/22 18:05 ALT 23 U/L (0-41) 02/14/22 18:05 Alkaline Phosphatase 43 U/L (40-130) 02/14/22 18:05 C-Reactive Protein 10.8 mg/L (0.0-4.9) H 02/14/22 21:23 Total Protein 7.0 g/dL (6.6-8.7) 02/14/22 18:05 Albumin 4.0 g/dL (3.5-5.2) 02/14/22 18:05 Globulin 3.0 g/dL (1.3-4.6) 02/14/22 18:05 Procalcitonin 0.06 ng/mL (0-0.5) 02/14/22 21:23 Urine Color Yellow (Yellow) 02/14/22 19:49 Urine Appearance Clear (CLEAR) 02/14/22 19:49 Urine pH 6 (5-7) 02/14/22 19:49 Ur Specific [place] 1.010 (1.005-1.030) 02/14/22 19:49 Urine Protein Neg (Negative) 02/14/22 19:49 Urine Glucose (UA) Norm (Normal) 02/14/22 19:49 Urine Ketones 1+ (Negative) H 02/14/22 19:49 Urine Blood 2+ (Negative) H 02/14/22 19:49 Urine Nitrate Negative (Negative) 02/14/22 19:49 Urine Bilirubin Neg (Negative) 02/14/22 19:49 Urine Urobilinogen Norm mg/dL (Negative) 02/14/22 19:49 Ur Leukocyte Esterase Negative (Negative) 02/14/22 19:49 Urine RBC 0-4 /hpf (0-2) H 02/14/22 19:49 Urine WBC None /hpf (0-5) 02/14/22 19:49 Ur Squamous Epith Cells 0-4 /hpf (0-5) H 02/14/22 19:49 Ur Transition Epith Cell None /hpf 02/14/22 19:49 Ur Renal Epithelial Cell N /hpf 02/14/22 19:49 Calcium Oxalate Crystal None /hpf 02/14/22 19:49 Uric Acid Crystals N /hpf 02/14/22 19:49 Triple Phos Crystals None /hpf 02/14/22 19:49 Other Crystals N /hpf 02/14/22 19:49 Amorphous Sediment Not Reportable 02/14/22 19:49 Urine Bacteria None /hpf (NONE) 02/14/22 19:49 Urine Mucus N /hpf 02/14/22 19:49 Urine Opiates Screen Negative ng/mL (Negative) 02/14/22 19:49 Ur Barbiturates Screen Negative ng/mL (Negative) 02/14/22 19:49 Valproic Acid 49.7 ug/mL (50-100) L 02/14/22 18:45 Ur Phencyclidine Scrn Negative ng/mL (Negative) 02/14/22 19:49 Ur Amphetamines Screen Negative ng/mL (Negative) 02/14/22 19:49 U Benzodiazepines Scrn Negative ng/mL (Negative) 02/14/22 19:49 Urine Cocaine Screen Negative ng/mL (Negative) 02/14/22 19:49 U Marijuana (THC) Screen Positive ng/mL (Negative) H 02/14/22 19:49 Critical Care Time Critical Care Time: Critical Care Time: Yes Total Critical Care Time: 40 Attestation: The high probability of a clinically significant, sudden or life threatening deterioration of the patient's neuro system(s) required my full and direct attention, intervention and personal management. The critical care time is as shown. This time is in addition to time spent performing any reported procedures but includes the following: [x] Data and vital sign review and interpretation [x] Patient assessment, examination and intervention [x] Documentation [x] Medication orders and management Discharge Plan Discharge Patient Disposition: Admitted As Inpatient Admit Provider: Chilo Pacheco Clinical Impression: Status epilepticus Condition: Stable Coding Level of Care Code ED Supervisor Coke Handling for Chg Fwd Exam Detailed
[2022-02-14 18:02] LABS: Glucose Point of Care 94 mg/dL (70-110)
--- NOTE | 2022-02-14 18:05 | PC.NURSE ---
PT PLACED ON CONTINUOUS SPO2, NIBP, AND CM.
[2022-02-14 18:10] LABS: Basophils % 0.5 %; Eosinophils # 0.2 10^3/uL (0.0-0.8); Eosinophils % 2.6 %; Hematocrit 56.8 % (42.0-52.0); Hemoglobin 18.6 g/dL (11.7-16.6); Lymphocytes # 0.8 10^3/uL (0.8-4.8); Lymphocytes % 9.7 %; Mean Corpuscular HGB Conc 32.7 g/dL (30.0-36.0); Mean Corpuscular Hemoglobin 32.2 pg (28.0-34.0); Mean Corpuscular Volume 98.4 fl (80-94); Mean Platelet Volume 10.2 fL (7.4-10.4); Monocytes # 1.2 10^3/uL (0.2-0.9); Monocytes % 16.1 %; Neutrophils # 5.44 10^3/uL (1.8-7.7); Neutrophils % 70.7 %; Nucleated Red Blood Cells % 0 %; Platelet Count 145 10^3/cmm (130-400); Red Blood Count 5.77 10^6/uL (4.1-5.3); White Blood Count 7.7 10^3/uL (4.0-10.0)
[2022-02-14] MEDS: iohexol 350 mg/mL 100 mL Btl 95 ML IV (18:25)
--- NOTE | 2022-02-14 18:25 | PC.NURSE ---
PT IS SHAKING UPPER AND LOWER EXT. PT HAS DECREASED RESPONSIVENESS. WITH TURNING RED. SPO2 DECREASED TO 92% ON RA. INFORMED DR. JAEGER VERBALIZED UNDERSTANDING.
[2022-02-14 18:28] LABS: INR 0.93 (0.8-1.2)
--- NOTE | 2022-02-14 18:28 | PC.NURSE ---
Patient is on continuous CM and Sp02 monitor. Pt skin is red, dry, and warm. Pt is experiencing left sided weakness and deficit. Lung sounds are clear with equal chest rise. Pt has aphasia with slurred speech. BP 131/90 sp02 94%
[2022-02-14 18:29] LABS: Partial Thromboplastin Time 28.1 SECONDS (23.9-36.7)
[2022-02-14 18:33] LABS: Alanine Aminotransferase 23 U/L (0-41); Alkaline Phosphatase 43 U/L (40-130); Anion Gap 13.8 (5-19); Aspartate Amino Transferase 27 U/L (0-40); Carbon Dioxide 25 mmol/L (22-29); Chloride 102 mmol/L (98-107); Glucose 99 mg/dL (65-115); Potassium 4.8 mmol/L (3.5-5.1); Sodium 136 mmol/L (136-145); Total Bilirubin 0.9 mg/dL (0.15-1.2)
[2022-02-14 18:49] LABS: Blood Urea Nitrogen 12 mg/dL (8-23); Calcium 9.6 mg/dL (8.5-10.5); Glomerular Filtration Rate 66.2 mL/min (90-130); Osmolality Calculated 282 mOsm/kg (285-295)
[2022-02-14] MEDS: midazolam 1 mg/mL INJ 2 mL 2 MG (18:58)
--- NOTE | 2022-02-14 19:13 | PC.NURSE ---
REPORT GIVEN TO SARAH CASON ASSUMED CARE.
[2022-02-14] MEDS: midazolam 1 mg/mL INJ 2 mL IVP (19:32)
[2022-02-14 20:04] LABS: Amphetamines Screen Urine Negative (Negative); Barbiturates Screen Urine Negative (Negative); Benzodiazepines Screen Urine Negative (Negative); Bilirubin Urine Neg (Negative); Blood Urine 2+ (Negative); Cocaine Screen Urine Negative (Negative); Glucose Urine UA Norm (Normal); Ketones Urine 1+ (Negative); Leukocyte Esterase Urine Negative (Negative); Nitrate Urine Negative (Negative); Opiate Screen Urine Negative (Negative); PCP Screen Urine Negative (Negative); Protein Urine Neg (Negative); THC Screen Urine Positive (Negative); Urine Appearance Clear (CLEAR); Urine Color Yellow (Yellow); Urobilinogen Urine Norm (Negative); pH Urine 6 (5-7)
[2022-02-14 20:05] LABS: Add Urine Microscopic? YES
[2022-02-14 20:08] LABS: Mucus Urine N /hpf; Other Crystals Urine N /hpf; RBC Urine 0-4 /hpf (0-2); Renal Epithelial Cells Urine N /hpf; Squamous Epithelial Cell Urine 0-4 /hpf (0-5); Uric Acid Crystals Urine N /hpf
[2022-02-14 20:09] LABS: Add Urine Culture? No
[2022-02-14 20:37] LABS: Valproic Acid Level 49.7 ug/mL (50-100)
--- NOTE | 2022-02-14 21:02 | P.HP_ITS ---
Providers/Chief Complaint Primary Care Provider: Gonzalo Linares ANP Chief Complaint: STROKE ALERT History of Present Illness Orion Varghese is a 71 year old male with a past medical history of CVA, history of atrial fibrillation on Eliquis, history of breakthrough seizures, recently admitted to [facility] for CVA event, recently admitted to [facility] for left arm and left leg paresis, left neglect, which was found possibly CVA versus seizure related versus fall related, who put this [facility] due to seizure-like episode. Currently patient is alert to person, not to place, not to time, is postictal, he keeps repeating that he has to pee, he has a Arango catheter in place, he can focus at times, but goes back to repeating that he needs to pee, he is moving both lower extremities, is moving his head, he is moving both bilateral upper extremities, he can follow commands such as squeezing my fingers or wiggling his toes. Most of the history was provided by at bedside, tells me that she went to work this morning at 8 AM, he was doing okay he had no relative complaints. Today when she returned from work about 3-4 she noticed that he was standing up, hunched over, leaning up against a piece of furniture, with his left hand contracted, acting confused. He kept dropping things from his right hand, trying to pick it up he is able to stand, able to walk, no slurring of his words, no facial droop, however his left hand was contracted, he was not acting appropriately, he is brought to the emergency room for evaluation. Here his CT of the head and neck was had no acute findings, CT head no acute findings, Dr. Mccallum was contacted by ER provider, thought was patient might be developing breakthrough seizures, focal seizures, he was given Keppra without improvement, then given Versed without improvement, was given Vimpat with improvement of his symptoms. Currently I cannot discern any focal seizure symptoms, he is postictal, confused hospitalist team was called for admission. Blood pressure 148/94, pulse 79, respiratory rate 20, O2 sats 97% on 4 L Review of Systems General: Reports: ROS unobtainable due to mental status Medications/Allergies Home Medications Medication Instructions Recorded Confirmed Last Taken Type apixaban 5 mg tablet 5 mg PO BID 10/14/19 02/14/22 02/14/22 History albuterol sulfate 90 mcg/actuation 2 puff inhalation Q6H PRN 10/14/20 02/14/22 Unknown History aerosol inhaler (ProAir HFA) Shortness Of Breath metoprolol succinate 50 mg 50 mg PO DAILY #30 tabs 10/18/20 02/14/22 02/14/22 Rx tablet,extended release 24 hr lorazepam 2 mg/mL oral concentrate 2 mg sublingual DAILY PRN seizure 11/03/20 02/14/22 Unknown Rx (Lorazepam Intensol) activity #30 mL midazolam 5 mg/spray (0.1 mL) 1 spray intranasal ONCE #1 ea 11/03/20 02/14/22 Unknown Rx nasal spray atorvastatin 20 mg tablet 20 mg PO DAILY 08/03/21 02/14/22 02/13/22 History fluticasone 250 mcg-salmeterol 50 1 inh inhalation BID 12/28/21 02/14/22 02/14/22 History mcg/dose blistr powdr for inhalation (Advair Diskus) sildenafil 100 mg tablet 100 mg PO DAILY PRN Sexual Activity 12/28/21 02/14/22 Unknown History levetiracetam 750 mg tablet 1,500 mg PO BID #400 tabs 12/29/21 02/14/22 02/14/22 Rx (Keppra) galantamine 8 mg tablet 8 mg PO BID #60 tabs 01/03/22 02/14/22 02/14/22 Rx amlodipine 10 mg tablet 10 mg PO DAILY 02/14/22 02/14/22 02/14/22 History cyanocobalamin (vitamin B-12) 1,000 mcg PO DAILY 02/14/22 02/14/22 02/14/22 History 1,000 mcg capsule divalproex 500 mg tablet,extended 1,000 mg PO BID 02/14/22 02/14/22 02/14/22 History release 24 hr (Depakote ER) levothyroxine 100 mcg tablet 100 mcg PO DAILY 02/14/22 02/14/22 02/14/22 History lisinopril 20 mg tablet 20 mg PO BID 02/14/22 02/14/22 02/14/22 History Allergies Allergy/AdvReac Type Severity Reaction Status Date / Time No Known Allergies Allergy Verified 01/03/22 12:27 PFSH Acute PFSH: Medical History Alzheimer disease Atrial fibrillation COPD (chronic obstructive pulmonary disease) 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, intractable Generalized epilepsy Generalized epilepsy Hypertension Hypothyroidism Mild cognitive impairment Polycythemia Receptive aphasia Secondarily generalized seizures Toxic encephalopathy Surgical History History of hernia repair Family History Other Cancer Social History Smoking and tobacco status: never smoked Alcohol intake: current Alcohol intake frequency: 0-2 Drinks per Day Alcohol type: hard liquor Vitals/I&O/Wt Last Vital Signs Temp 98.2 F 02/14/22 17:53 Pulse 79 02/14/22 20:31 Resp 32 H 02/14/22 20:31 BP 148/94 02/14/22 20:31 Pulse Ox 97 02/14/22 20:31 O2 Del Method 02/14/22 20:31 O2 Flow Rate 4 02/14/22 20:31 02/14/22 02/14/22 02/14/22 06:59 14:59 22:59 Intake Total 110 / 110 Balance 110 / 110 Weight last 48 hrs Weight 108.862 kg Physical Exam Const: COMMON NORMALS: no acute distress EXAM LIMITATIONS: altered mental status ORIENTATION/CONSCIOUSNESS: Yes awake, Yes oriented to person and Yes confused; not oriented to place and not oriented to time HENMT: COMMON NORMALS: normocephalic HEAD & SCALP: normocephalic Eye: COMMON NORMALS: Equal, round and reactive pupils present Neck/C-Spine: COMMON NORMALS: no JVD Resp: COMMON NORMALS: normal respiratory effort, No retractions, No use of accessory muscles and clear to auscultation bilaterally AUSCULTATION: clear to auscultation bilaterally Cardio: COMMON NORMALS: no JVD, regular rate, regular rhythm, S1 normal heart sound present and S2 normal heart sound present RATE: regular rate RHYTHM: regular rhythm HEART SOUNDS: S1 normal heart sound present and S2 normal heart sound present GI: COMMON NORMALS: Normal to inspection, nondistended, normoactive bowel sounds present, Soft to palpation, non-tender, No hepatosplenomegaly present, no masses and no bruits PALPATION: Yes Soft to palpation and Yes No hepatosplenomegaly present Extremity: COMMON NORMALS: capillary refill normal, no clubbing, cyanosis or edema, no calf tenderness and no pedal edema Psych: COMMON NORMALS: mental status grossly normal Urinary Catheter Management: Arango Latex: Cath Placed During This Visit: yes Urinary Catheter Date of Insertion: 02/14/22 Urinary Catheter Time of Insertion: 19:58 Data : 02/14/22 18:05 02/14/22 18:05 A&P Assessment and plan (1) Atrial fibrillation: Status: Acute (2) Breakthrough seizure: Status: Acute Plan Breakthrough seizure -With history of frontal lobe epilepsy -Status post Keppra, Versed, and Vimpat -Currently alert to person, not to place, to time, postictal, spontaneous m ovement upper and lower extremities, hard for him to follow commands, on 4 L, -CT head no acute findings -CTA head and neck no acute findings -THC positive -No significant electrolyte abnormalities -UA within normal limits -Unlikely to be a strokelike episode, nonetheless aspirin, statin, neurochecks, stroke scale -Requiring 4 L, will do chest x-ray, possible aspiration event versus fluid overload Plan -Monitor in ICU -Has episodes of agitation, placed on Precedex drip -Ativan as needed for breakthrough seizure episodes -Seizure precautions, neurochecks, telemetry monitoring -Continue home medication -Continue Depakote, Keppra, -We will need to discuss with Dr. Mccallum in the morning about titration of his home medications -DNR, patient's is okay with intubation if required -Eliquis for DVT prophylaxis Attestations Medical Necessity Statement*: Patient requires hospitalization, inpatient, greater than 2 midnights, for breakthrough seizure Coding Level of Care Code Acute Medical Authorization Specialist for Chg Fwd Exam Comprehensive Diagnoses Atrial fibrillation I48.91 Breakthrough seizure G40.919
--- NOTE | 2022-02-14 21:23 | XRR_ITS ---
PROCEDURE INFORMATION: Exam: XR Chest Exam date and time: 02/14/2022 9:50 PM Age: 71 years old Clinical indication: Other: Non coherent; Additional info: Aspiration event? TECHNIQUE: Imaging protocol: Radiologic exam of the chest. Views: 1 view. COMPARISON: CR XR chest 1V portable [id number] 10/14/2020 3:31 PM FINDINGS: Lungs: Hyperinflated lungs with diffuse coarsening of the lung parenchyma. No consolidation. Pleural spaces: No pleural effusion. No pneumothorax. Heart/Mediastinum: Unremarkable. No cardiomegaly. Bones/joints: Unremarkable. XR/XR chest 1V portable [id number] IMPRESSION: Sequela of COPD. No consolidation.
[2022-02-14 22:33] LABS: C Reactive Protein 10.8 mg/L (0.0-4.9)
[2022-02-14 22:39] LABS: Procalcitonin 0.06 ng/mL (0-0.5)
--- NOTE | 2022-02-14 23:31 | PC.NURSE ---
Pt. came to nurses station and stated that the patient keeps trying to hang his feet through the bars and keeps complaining of needing to urinate. She states that he complains that it fields. wanted him to be restrained. I have explained that we do not like to put restraints on people unless it is absolutely necessary.
[2022-02-15] VITALS (54 sets, daily range): BP systolic 76–154; BP diastolic 42–104; PULSE 45–88; RESP 17–46; TEMP 36.8–37.3; O2SAT 88–99
[2022-02-15] MEDS: dextrose 5%-sod chloride 0.9% 1,000 ML 100 ML IV ×2 (01:27→22:15)
[2022-02-15 03:42] LABS: Basophils % 0.2 %; Eosinophils # 0.1 10^3/uL (0.0-0.8); Eosinophils % 1.3 %; Hematocrit 53.7 % (42.0-52.0); Hemoglobin 17.4 g/dL (11.7-16.6); Lymphocytes # 0.7 10^3/uL (0.8-4.8); Lymphocytes % 6.2 %; Mean Corpuscular HGB Conc 32.4 g/dL (30.0-36.0); Mean Corpuscular Hemoglobin 32.4 pg (28.0-34.0); Mean Platelet Volume 10.2 fL (7.4-10.4); Monocytes # 1.7 10^3/uL (0.2-0.9); Monocytes % 15.6 %; Neutrophils # 8.45 10^3/uL (1.8-7.7); Neutrophils % 76.3 %; Nucleated Red Blood Cells % 0 %; Platelet Count 129 10^3/cmm (130-400); Red Blood Count 5.37 10^6/uL (4.1-5.3); Red Cell Distribution Width 13.1 % (12.1-15.1); White Blood Count 11.1 10^3/uL (4.0-10.0)
[2022-02-15 04:18] LABS: Anion Gap 13.6 (5-19); Blood Urea Nitrogen 13 mg/dL (8-23); Calcium 9.1 mg/dL (8.5-10.5); Carbon Dioxide 25 mmol/L (22-29); Chloride 101 mmol/L (98-107); Glomerular Filtration Rate 66.2 mL/min (90-130); Glucose 108 mg/dL (65-115); Osmolality Calculated 281 mOsm/kg (285-295); Potassium 4.6 mmol/L (3.5-5.1); Sodium 135 mmol/L (136-145); Thyroid Stimulating Hormone 6.52 uIU/mL (0.27-4.20)
--- NOTE | 2022-02-15 04:55 | PC.NURSE ---
Pt. waking up and confused. attempting to get out of bed and pulling at catheter. Becoming agitated. Will start precedex drip as ordered.
[2022-02-15] MEDS: dexmedeTOMIDine 0.9 % NaCL 400 MCG/100 ML PREMIX IV (04:57)
[2022-02-15] MEDS: dexmedeTOMIDine 0.9 % NaCL 400 MCG/100 ML PREMIX 32.66 MCG IV ×2 (08:02→12:16)
[2022-02-15 09:12] LABS: Valproic Acid Level 40.3 ug/mL (50-100)
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
--- NOTE | 2022-02-15 09:33 | PC.NURSE ---
Dr. Crawford at bedside, observed decreased responsiveness, approved not administering po meds until patient responsiveness improves. Precedex shut off due to claudia cardia, approximatly 30 minutes later patient trying to get out of bed, not cooperating or able to answer questions appropriately, precedex resumed
--- NOTE | 2022-02-15 09:50 | P.PN_ITS ---
Subjective Subjective: He is sleepy but arousable. He can tell me he lives in [facility]. Medications: Medication Review Details: He received a loading dose of 500 mg of lacosamide IV Vitals/I&O/Wt Last Vital Signs Temp 98.8 F 02/15/22 04:15 Pulse 88 02/15/22 05:41 Resp 31 H 02/15/22 04:15 BP 122/83 02/15/22 04:15 Pulse Ox 97 02/15/22 04:15 O2 Del Method 02/15/22 00:26 O2 Flow Rate 4 02/14/22 21:10 02/14/22 02/15/22 02/15/22 22:59 06:59 14:59 Intake Total 110 / 110 110.071 / 220.071 71.308 / 71.308 Output Total 900 / 900 Balance 110 / 110 -789.929 / -679.929 71.308 / 71.308 Weight last 48 hrs Weight 240 lb Physical Exam Narrative: Speech dysarthric. He does not open his eyes. He is mildly aggressive. Cranial nerves: I cannot evaluate his visual lieberman. He has flattening of the left nasolabial fold. Motor: He is not moving the left side as well as the right. He is aggressive and movements on the right. Gait not tested. Cardiac: S1 and S2 normal without murmur or gallop. Chest clear. 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 He has had status epilepticus multiple times in the last several years and he is aggressive and difficult to deal with when he is waking up as he is a very large individual and he has no ndominant origin of seizures with resultant behavioral problems. Anticipate that this will happen again. I recommend Zyprexa which worked well for him the last time. He does strike out. Plan to switch from Depakote to lacosamide 200 mg twice a day. He will need to receive that IV while he is here. Continue Keppra 1500 mg twice daily. He will need to receive that IV until he can swallow. I anticipate he will need several days stay until he can wake up. Status: Acute (2) Alzheimer's dementia without behavioral disturbance: Status: Acute (3) Post-ictal confusion: Status: Acute (4) Post-ictal hemiplegia: Status: Acute (5) Atrial fibrillation: Status: Acute Attestations Medical Necessity Statement*: Status epilepticus with profound confusion and hemiparesis Coding Level of Care Code Acute Meeting Specialist for [facility] Diagnoses Frontal lobe epilepsy G40.802 Alzheimer's dementia without behavioral disturbance G30.9; F02.80 Post-ictal confusion F05 Post-ictal hemiplegia G83.84 Atrial fibrillation I48.91
--- NOTE | 2022-02-15 09:51 | PC.NURSE ---
Patient trying to get out of bed, not cooperating, not following commands, speech slightly slurred, left sided weakness observed, not answering questions appropriately, Dr. Crawford gave v.o. for [place]
--- NOTE | 2022-02-15 09:59 | PC.CHAP ---
Pastoral Care Encounter/Spiritual Assessment Type of Contact [] Declined pole peeling machine operator helper visit [] Patient/Family/Request visit [] Outpatient visit [] Follow-up visit [] Physician referral [] Code/Alert [x] Routine visit [] Staff referral [] Actively dying [] Patient sleeping [] Family support [] [] Out of room [] Palliative care [] [x] Receiving care in room [] Pre-surgical visit [] Trauma [] Long length of stay [x] ICU visit [x] Other: several staff members present to comfort PT... Relational/Emotional Strength [] Patient feels connected with others/family/visitors/staff [] Distress [] Loneliness/isolation [] Abandonment Spirituality of Patient [] Person of Carrie [] Attends Orthodox of their Carrie [] Believes in Prayer [] Reads Bible or Gnosticist materials [] There are Spiritual issues to be addressed Cushion Padder Interventions [x] Prayer [] Active listening [] Non-anxious presence [] Spiritual/emotional support [] Crisis/trauma care [] Spiritual counseling [] Bereavement support [] Provided bereavement packet [] Provided Bible/devotional materials [] Provided toy/stuffed animal, coloring book to patient or family member [] Provided Communion [] Anointing/[place] [] Salvation [x] Completed spiritual assessment [] Other: Impact on Illness or Injury [] Angry [] Fearful [x] Anxious [] Often cries [] Exhaustion [] Unable to work [] Unable to attend cheondoism [] Unable to walk/stand [] Unable to read [] Unable to drive [] Unable to eat/drink [] Unable to sleep [] Unable to be with family [] Patient intubated [] Other: Summary Time spent with patient
[2022-02-15] MEDS: haloperidol inj 5 mg/mL INJ 1 mL 2 MG IM (10:08)
--- NOTE | 2022-02-15 10:30 | PC.NURSE ---
Patient still trying to get out of bed, not following commands, Dr. Crawford gave t.o. order for Zyprexa
[2022-02-15] MEDS: OLANZapine 10 mg VIAL 5 MG IM ×2 (10:50→17:22)
[2022-02-15] MEDS: lanolin oint 7 gm 1 APPLIC TOPICAL (10:55)
--- NOTE | 2022-02-15 15:20 | PM.PN ---
Subjective Subjective: This morning he is groggy, answering few yes/no questions, denies pain, is not sure if he is having a headache, not oriented to place or time. Not following commands very well, but eventually does squeeze both of his hands, moving all extremities. Later on more awake, but becoming agitated, getting out of bed, trying to leave, still not oriented. Vitals/I&O/Wt Last Vital Signs Temp 98.8 F 02/15/22 04:15 Pulse 60 02/15/22 12:00 Resp 18 02/15/22 12:00 BP 105/70 02/15/22 12:00 Pulse Ox 89 L 02/15/22 12:00 O2 Del Method 02/15/22 00:26 O2 Flow Rate 4 02/14/22 21:10 02/15/22 02/15/22 02/15/22 06:59 14:59 22:59 Intake Total 110.071 / 220.071 171.308 / 171.308 Output Total 900 / 900 Balance -789.929 / -679.929 171.308 / 171.308 Weight last 48 hrs Weight 108.862 kg Physical Exam Const: COMMON NORMALS: negative for patient oriented x3 GENERAL APPEARANCE: lethargic; not cooperative ORIENTATION/CONSCIOUSNESS: Yes lethargic HENMT: COMMON NORMALS: oropharynx normal Neck/C-Spine: COMMON NORMALS: no JVD Resp: COMMON NORMALS: normal respiratory effort and clear to auscultation bilaterally AUSCULTATION: clear to auscultation bilaterally Cardio: COMMON NORMALS: no JVD, regular rhythm, S1 normal heart sound present, S2 normal heart sound present and No murmurs present (Cardio) RHYTHM: regular rhythm HEART SOUNDS: S1 normal heart sound present and S2 normal heart sound present GI: COMMON NORMALS: Normal to inspection, nondistended, normoactive bowel sounds present, Soft to palpation and non-tender PALPATION: Yes Soft to palpation Extremity: COMMON NORMALS: no joint enlargement and no pedal edema Neuro: COMMON NORMALS: moves all extremities; negative for patient oriented x3 SENSORIUM/ORIENTATION: Yes lethargic Skin: COMMON NORMALS: no rashes or lesions noted GENERAL SKIN EXAM: no rashes or lesions noted Urinary Catheter Management: Arango Latex: Cath Placed During This Visit: yes Reason for Continuing Indwelling Catheter: Accurate Measurement of Urinary Output in Critically Ill Patients Urinary Catheter Date of Insertion: 02/14/22 Urinary Catheter Time of Insertion: 19:58 Data : 02/15/22 02:58 02/15/22 02:58 A&P Assessment and plan (1) Post-ictal confusion: Initially lethargic, groggy, not readily cooperative, subsequently more awake, getting out of bed, trying to leave, not oriented. Required Haldol dose IM, it appears that he has done better with Zyprexa in the past. Continue supportive care for acute encephalopathy following seizures with prolonged recovery. Zyprexa if needed for agitation. Status: Acute (2) Breakthrough seizure: Appreciate neurology adjustment of his antiepileptic regimen. Continue intravenous Keppra, lacosamide. His has been making strides at home to ensure medication compliance with his dementia. Status: Acute (3) Atrial fibrillation: Status: Acute (4) Alzheimer's dementia without behavioral disturbance: Status: Acute Plan Hypoxia: Initially requiring 4 L of nasal cannula oxygen. Improving, has been weaning down on oxygen. Wean down as tolerating. Possibly some microaspiration during seizure chest x-ray grossly remarkable. Mild leukocytosis. Afebrile. Monitor his oxygenation, respiratory status, temperatures, reassess CBC. Attestations Medical Necessity Statement*: Continue admission for assessment of management following seizures, optimize patient of antiepileptic regimen, supportive care with postictal encephalopathy, hypoxia with possible microaspiration. Coding Level of Care Code Acute Communications Manager for Debra Coyle Diagnoses Post-ictal confusion F05 Breakthrough seizure G40.919 Atrial fibrillation I48.91 Alzheimer's dementia without behavioral disturbance G30.9; F02.80
--- NOTE | 2022-02-15 17:45 | PC.NURSE ---
Patient still trying to get out of bed, not responding appropriately verbally, abdominal breathing and flushed skin noted, VS WNL, This nurse informed Dr. Zazueta, no N.O.
[2022-02-15] MEDS: lacosamide 200 MG in sodium chloride 0.9% 50 ML 120 MG IV (18:12)
[2022-02-16] VITALS (42 sets, daily range): BP systolic 102–148; BP diastolic 56–102; PULSE 64–108; RESP 12–31; TEMP 36.7–37.5; O2SAT 69–98
[2022-02-16 04:29] LABS: Basophils % 0.4 %; Eosinophils # 0.2 10^3/uL (0.0-0.8); Eosinophils % 2.3 %; Hematocrit 52.8 % (42.0-52.0); Hemoglobin 17.5 g/dL (11.7-16.6); Lymphocytes # 0.8 10^3/uL (0.8-4.8); Mean Corpuscular HGB Conc 33.1 g/dL (30.0-36.0); Mean Corpuscular Hemoglobin 32.2 pg (28.0-34.0); Mean Corpuscular Volume 97.2 fl (80-94); Mean Platelet Volume 10.3 fL (7.4-10.4); Monocytes # 1.3 10^3/uL (0.2-0.9); Monocytes % 16.3 %; Neutrophils # 5.71 10^3/uL (1.8-7.7); Neutrophils % 70.6 %; Nucleated Red Blood Cells % 0 %; Platelet Count 138 10^3/cmm (130-400); Red Blood Count 5.43 10^6/uL (4.1-5.3); Red Cell Distribution Width 12.8 % (12.1-15.1); White Blood Count 8.1 10^3/uL (4.0-10.0)
[2022-02-16 04:33] LABS: Anion Gap 16.2 (5-19); Blood Urea Nitrogen 18 mg/dL (8-23); Calcium 9.4 mg/dL (8.5-10.5); Carbon Dioxide 24 mmol/L (22-29); Chloride 102 mmol/L (98-107); Glomerular Filtration Rate 54.6 mL/min (90-130); Glucose 89 mg/dL (65-115); Osmolality Calculated 287 mOsm/kg (285-295); Potassium 4.2 mmol/L (3.5-5.1); Sodium 138 mmol/L (136-145)
[2022-02-16] MEDS: dextrose 5%-sod chloride 0.9% 1,000 ML 100 ML IV (08:26)
[2022-02-16] MEDS: lacosamide 200 MG in sodium chloride 0.9% 50 ML 120 MG IV ×2 (08:53→18:17)
--- NOTE | 2022-02-16 09:00 | PC.NURSE ---
patient refused oral meds just keeps saying I can't , attempted to educate patient continues to refuse.
--- NOTE | 2022-02-16 10:28 | PC.CHAP ---
Pastoral Care Encounter/Spiritual Assessment Type of Contact [] Declined assignment desk assistant visit [] Patient/Family/Request visit [] Outpatient visit [] Follow-up visit [] Physician referral [] Code/Alert [x] Routine visit [] Staff referral [] Actively dying [x] Patient sleeping [] Family support [] [] Out of room [] Palliative care [] [] Receiving care in room [] Pre-surgical visit [] Trauma [] Long length of stay [x] ICU visit [] Other: Relational/Emotional Strength [] Patient feels connected with others/family/visitors/staff [] Distress [] Loneliness/isolation [] Abandonment Spirituality of Patient [] Person of Carrie [] Attends Yarsani of their Carrie [] Believes in Prayer [] Reads Bible or Yazidi materials [] There are Spiritual issues to be addressed Order Manager Interventions [x] Prayer [] Active listening [] Non-anxious presence [] Spiritual/emotional support [] Crisis/trauma care [] Spiritual counseling [] Bereavement support [] Provided bereavement packet [] Provided Bible/devotional materials [] Provided toy/stuffed animal, coloring book to patient or family member [] Provided Communion [] Anointing/[place] [] Salvation [x] Completed spiritual assessment [] Other: Impact on Illness or Injury [] Angry [] Fearful [] Anxious [] Often cries [] Exhaustion [] Unable to work [] Unable to attend yarsanism [] Unable to walk/stand [] Unable to read [] Unable to drive [] Unable to eat/drink [] Unable to sleep [] Unable to be with family [] Patient intubated [] Other: Summary Time spent with patient
--- NOTE | 2022-02-16 11:55 | PM.PN ---
Subjective Subjective: He is more alert today, but confused. Will give short one-word answers, but not clear how reliable they are. Other times tries to give longer answers, but goes on unintelligible tangents. Vitals/I&O/Wt Last Vital Signs Temp 98.9 F 02/16/22 11:30 Pulse 80 02/16/22 11:30 Resp 25 H 02/16/22 11:30 BP 120/76 02/16/22 11:30 Pulse Ox 96 02/16/22 11:30 O2 Del Method 02/15/22 00:26 O2 Flow Rate 4 02/14/22 21:10 02/15/22 02/16/22 02/16/22 22:59 06:59 14:59 Intake Total 115 / 4701.063 4365 / 1255 Output Total 750 / 750 Balance 115 / 1286.308 -750 / 781.437 0980 / 1255 Weight last 48 hrs Weight 108.862 kg Physical Exam Const: COMMON NORMALS: negative for patient oriented x3 ORIENTATION/CONSCIOUSNESS: Yes confused OTHER: He is not cooperating very well, difficulty understanding instructions. HENMT: COMMON NORMALS: oropharynx normal Neck/C-Spine: COMMON NORMALS: no JVD Resp: COMMON NORMALS: normal respiratory effort and clear to auscultation bilaterally AUSCULTATION: clear to auscultation bilaterally Cardio: COMMON NORMALS: no JVD, regular rhythm, S1 normal heart sound present, S2 normal heart sound present and No murmurs present (Cardio) RHYTHM: regular rhythm HEART SOUNDS: S1 normal heart sound present and S2 normal heart sound present GI: COMMON NORMALS: Normal to inspection, nondistended, normoactive bowel sounds present, Soft to palpation and non-tender PALPATION: Yes Soft to palpation Extremity: COMMON NORMALS: no joint enlargement and no pedal edema Neuro: COMMON NORMALS: moves all extremities; negative for patient oriented x3 Skin: COMMON NORMALS: no rashes or lesions noted GENERAL SKIN EXAM: no rashes or lesions noted Urinary Catheter Management: Arango Latex: Cath Placed During This Visit: yes Reason for Continuing Indwelling Catheter: Accurate Measurement of Urinary Output in Critically Ill Patients Urinary Catheter Date of Insertion: 02/14/22 Urinary Catheter Time of Insertion: 19:58 Data : 02/16/22 03:45 02/16/22 03:45 A&P Assessment and plan (1) Post-ictal confusion: Some gradual improvement. He is more alert, appears [place] today, although confused, not sure that he is giving reliable answers although currently denies pain or discomfort or any needs. Does not appear to be oriented. Not following directions well. Continue antiepileptics, continue supportive care, reorient. Had not been safe to take anything by mouth. Could trial some oral intake now that he is more alert. We will ask ST to see him. Zyprexa if needed for agitation. Status: Acute (2) Breakthrough seizure: Keppra and switch from Depakote to lacosamide, IV for now. His has been making strides at home to ensure medication compliance with his dementia. Status: Acute (3) Atrial fibrillation: Status: Acute (4) Alzheimer's dementia without behavioral disturbance: Status: Acute Plan Hypoxia: So far resolved. He denies trouble breathing. Initially requiring 4 L of nasal cannula oxygen. Possibly some microaspiration during seizure chest x-ray grossly remarkable. Mild leukocytosis resolved. Afebrile. Mild CARMELITA, creatinine up to 1.3. We will give a gentle fluid challenge. Recheck renal function. Check CK. Attestations Medical Necessity Statement*: Continue admission for assessment management following seizure episodes, optimization of antiepileptic regimen, prolonged postictal state. CARMELITA. Coding Level of Care Code Acute Electrical Engineering Professor for Debra Coyle Diagnoses Post-ictal confusion F05 Breakthrough seizure G40.919 Atrial fibrillation I48.91 Alzheimer's dementia without behavioral disturbance G30.9; F02.80
[2022-02-16] MEDS: lactated ringers 1,000 ML 30 ML IV (12:30)
[2022-02-16 16:02] LABS: Creatine Phosphokinase 100 U/L (39-308)
--- NOTE | 2022-02-16 17:47 | PC.NURSE ---
patient continues to refuse to take po meds sips of water offered also refused patient sat up at the edge of the bed for about 20 min and tolerated well. family at bedside
--- NOTE | 2022-02-16 19:06 | PC.SLP ---
TROUBLE DISPATCHER attempted to assess patient, however, the patient did not work with the TROUBLE DISPATCHER at this time. TROUBLE DISPATCHER will follow up with the patient tomorrow.
[2022-02-17] VITALS (24 sets, daily range): BP systolic 96–145; BP diastolic 51–99; PULSE 76–100; RESP 15–26; TEMP 36.4–37.5; O2SAT 90–95
[2022-02-17 03:52] LABS: Basophils % 0.5 %; Eosinophils # 0.2 10^3/uL (0.0-0.8); Eosinophils % 2.9 %; Hematocrit 53.5 % (42.0-52.0); Hemoglobin 17.8 g/dL (11.7-16.6); Lymphocytes # 0.7 10^3/uL (0.8-4.8); Lymphocytes % 10.1 %; Mean Corpuscular HGB Conc 33.3 g/dL (30.0-36.0); Mean Corpuscular Hemoglobin 32.4 pg (28.0-34.0); Mean Corpuscular Volume 97.4 fl (80-94); Mean Platelet Volume 10.5 fL (7.4-10.4); Monocytes # 1.4 10^3/uL (0.2-0.9); Monocytes % 18.6 %; Neutrophils # 4.97 10^3/uL (1.8-7.7); Neutrophils % 67.5 %; Nucleated Red Blood Cells % 0 %; Platelet Count 131 10^3/cmm (130-400); Red Blood Count 5.49 10^6/uL (4.1-5.3); Red Cell Distribution Width 12.8 % (12.1-15.1); White Blood Count 7.4 10^3/uL (4.0-10.0)
[2022-02-17 04:22] LABS: Anion Gap 16.7 (5-19); Blood Urea Nitrogen 18 mg/dL (8-23); Calcium 9.3 mg/dL (8.5-10.5); Carbon Dioxide 24 mmol/L (22-29); Chloride 102 mmol/L (98-107); Glomerular Filtration Rate 59.9 mL/min (90-130); Glucose 70 mg/dL (65-115); Osmolality Calculated 288 mOsm/kg (285-295); Potassium 3.7 mmol/L (3.5-5.1); Sodium 139 mmol/L (136-145)
[2022-02-17] MEDS: lacosamide 200 MG in sodium chloride 0.9% 50 ML 120 MG IV (05:35)
--- NOTE | 2022-02-17 08:54 | P.PN_ITS ---
Subjective Subjective: He has had no further seizures since Vimpat was added. He is awake and in a good mood today but has no idea where he is other than he is in the hospital Medications: Medication Review Details: He was not taking p.o. He is on 1500 mg of Keppra twice daily along with 200 mg of Vimpat twice daily. He should be discharged on these doses. Vitals/I&O/Wt Last Vital Signs Temp 99.5 F 02/17/22 04:00 Pulse 91 02/17/22 05:13 Resp 15 02/17/22 00:00 BP 127/74 02/17/22 00:00 Pulse Ox 92 02/17/22 04:00 O2 Del Method 02/17/22 04:00 O2 Flow Rate 4 02/14/22 21:10 02/16/22 02/17/22 02/17/22 22:59 06:59 14:59 Intake Total 185 / 2440 185 / 2625 Output Total 900 / 900 250 / 1150 Balance -715 / 1540 -65 / 1475 Physical Exam Narrative: He was awake and responded appropriately. He is demented. He is in good spirits. He is moving all 4 extremities. No seizure activity. Chest clear Heart sounds normal without murmur or gallop. Regular rate and rhythm. Urinary Catheter Management: Arango Latex: Cath Placed During This Visit: yes Reason for Continuing Indwelling Catheter: Accurate Measurement of Urinary Output in Critically Ill Patients Urinary Catheter Date of Insertion: 02/14/22 Urinary Catheter Time of Insertion: 19:58 Data : 02/17/22 02:33 02/17/22 02:33 A&P Assessment and plan (1) Epilepsia partialis continua, intractable epilepsy, pharmacoresistant: He responded well to IV Vimpat. He needs to stay on Vimpat 200 mg twice daily and at discharge he should be on Vimpat 200 mg twice daily along with Keppra 1500 mg twice daily. I need to see him back in the office within a couple of weeks please. He seems much more cheerful. It might be advisable to go ahead and ask his family to get the Vimpat at the pharmacy before discharge so that he does not go without over the weekend. Emphasized that he is no longer on Depakote. Status: Acute (2) Frontal lobe epilepsy: Status: Acute (3) Post-ictal hemiplegia: Status: Acute (4) Alzheimer's dementia without behavioral disturbance: Status: Acute Attestations Medical Necessity Statement*: He was admitted with continuous epileptic activity and left-sided weakness Coding Level of Care Code Acute Oracle Solutions Architect for [facility] Fwd Diagnoses Epilepsia partialis continua, intractable epilepsy, pharmacoresistant G40.119 Frontal lobe epilepsy G40.802 Post-ictal hemiplegia G83.84 Alzheimer's dementia without behavioral disturbance G30.9; F02.80
[2022-02-17] MEDS: pantoprazole DR 40 mg Tablet PO (09:11)
[2022-02-17] MEDS: apixaban 5 mg Tablet PO ×2 (09:11→17:48)
[2022-02-17] MEDS: cyanocobalamin 1,000 mcg Tablet 1000 MCG PO (09:11)
[2022-02-17] MEDS: metoprolol succinate ER (24 HR) 50 mg Tablet PO (09:11)
[2022-02-17] MEDS: atorvastatin 40 mg Tablet 20 MG PO (09:11)
[2022-02-17] MEDS: levothyroxine 100 mcg Tablet PO (09:11)
[2022-02-17] MEDS: amlodipine 10 mg Tablet PO (09:12)
[2022-02-17] MEDS: lisinopril 20 mg Tablet PO ×2 (09:12→17:48)
--- NOTE | 2022-02-17 14:50 | PM.PN ---
Subjective Medications: Medication Review Details: This morning he is more alert, he is calm. He is overall doing better, is able to answer questions better, although at times repeats himself. Knows today that he is in the hospital. He is not entirely sure about the year, settles on 2020. No headache, pain or discomfort. Vitals/I&O/Wt Last Vital Signs Temp 97.5 F L 02/17/22 09:00 Pulse 100 02/17/22 10:00 Resp 18 02/17/22 09:00 BP 131/99 02/17/22 10:00 Pulse Ox 93 02/17/22 10:00 O2 Del Method 02/17/22 09:00 O2 Flow Rate 4 02/14/22 21:10 02/16/22 02/17/22 02/17/22 22:59 06:59 14:59 Intake Total 185 / 2440 185 / 2625 Output Total 900 / 900 250 / 1150 225 / 225 Balance -715 / 1540 -65 / 1475 -225 / -225 Physical Exam Const: COMMON NORMALS: negative for patient oriented x3 GENERAL APPEARANCE: cooperative ORIENTATION/CONSCIOUSNESS: Yes awake HENMT: COMMON NORMALS: oropharynx normal Neck/C-Spine: COMMON NORMALS: no JVD Resp: COMMON NORMALS: normal respiratory effort and clear to auscultation bilaterally AUSCULTATION: clear to auscultation bilaterally Cardio: COMMON NORMALS: no JVD, regular rhythm, S1 normal heart sound present, S2 normal heart sound present and No murmurs present (Cardio) RHYTHM: regular rhythm HEART SOUNDS: S1 normal heart sound present and S2 normal heart sound present GI: COMMON NORMALS: Normal to inspection, nondistended, normoactive bowel sounds present, Soft to palpation and non-tender PALPATION: Yes Soft to palpation Extremity: COMMON NORMALS: no joint enlargement and no pedal edema Neuro: COMMON NORMALS: moves all extremities; negative for patient oriented x3 Skin: COMMON NORMALS: no rashes or lesions noted GENERAL SKIN EXAM: no rashes or lesions noted Urinary Catheter Management: Arango Latex: Cath Placed During This Visit: yes Reason for Continuing Indwelling Catheter: Accurate Measurement of Urinary Output in Critically Ill Patients Urinary Catheter Date of Insertion: 02/14/22 Urinary Catheter Time of Insertion: 19:58 Data : 02/17/22 02:33 02/17/22 02:33 A&P Assessment and plan (1) Post-ictal confusion: Continue to slowly improve. Today he is more alert, cooperative, more oriented, still some confusion, intermittently repeats himself. Appreciate ST assessment. Resume oral intake. We will start switching his medications to p.o. Also get assessed by OT, PT. Continue antiepileptics, continue supportive care, reorient. Weaned off Precedex. Can continue care on medical floor. Zyprexa if needed for agitation. Status: Acute (2) Breakthrough seizure: Continue Keppra, Depakote, transition to p.o. Off Depakote. His has been making strides at home to ensure medication compliance with his dementia. Status: Acute (3) Atrial fibrillation: Status: Acute (4) Alzheimer's dementia without behavioral disturbance: Status: Acute Plan Hypoxia: resolved. He denies trouble breathing. Initially requiring 4 L of nasal cannula oxygen. Possibly some microaspiration during seizure chest x-ray grossly remarkable. Mild leukocytosis resolved. Afebrile. Mild CARMELITA, creatinine up to 1.3. Improving. Continues on gentle IV hydration until reestablishes oral intake. CK not elevated. Hypothyroidism: Mild elevation of TSH. Difficult to tell if needs increased dosing levothyroxine, or if missing doses intermittently. Will check free T4. Attestations Medical Necessity Statement*: Continue admission for optimization of antibiotic regimen, transition to oral medications with gradually improving protracted postictal condition after multiple breakthrough seizures, functional assessment, disposition planning. Coding Level of Care Code Acute Plodder Operator for Debra Fwd Exam Comprehensive Diagnoses Post-ictal confusion F05 Breakthrough seizure G40.919 Atrial fibrillation I48.91 Alzheimer's dementia without behavioral disturbance G30.9; F02.80
[2022-02-17] MEDS: lacosamide 50 mg Tablet 200 MG PO (17:48)
--- NOTE | 2022-02-17 18:15 | PC.NURSE ---
SHift Summary: Overall, uneventful shift. Patient has rested in bed throughout the day. Mental status is variable, but impoved compared to yesterday. He has been oriented to person, place, time, and situation, but is still confused evident by repeated questioning, and difficulty following more than 1 instruction at a time.
--- NOTE | 2022-02-17 20:10 | PC.NURSE ---
Transfer Patient transferred via wheelchair to [facility] bed 254-1. All vitals stable upon transfer; no belongings with patient. Receiving nurse aware of arrival.
[2022-02-17] MEDS: lactated ringers 1,000 ML 30 ML IV (20:42)
[2022-02-18] VITALS (8 sets, daily range): BP systolic 128–133; BP diastolic 89–96; PULSE 81–93; RESP 17–22; TEMP 36.7–36.8; O2SAT 87–99
[2022-02-18 05:04] LABS: Basophils # 0.1 10^3/uL (0.0-0.1); Basophils % 0.8 %; Eosinophils # 0.4 10^3/uL (0.0-0.8); Eosinophils % 4.6 %; Hematocrit 56.2 % (42.0-52.0); Hemoglobin 18.3 g/dL (11.7-16.6); Lymphocytes # 0.7 10^3/uL (0.8-4.8); Lymphocytes % 9.3 %; Mean Corpuscular HGB Conc 32.6 g/dL (30.0-36.0); Mean Corpuscular Hemoglobin 32.2 pg (28.0-34.0); Mean Corpuscular Volume 98.8 fl (80-94); Mean Platelet Volume 10.2 fL (7.4-10.4); Monocytes # 1.2 10^3/uL (0.2-0.9); Monocytes % 15.6 %; Neutrophils # 5.51 10^3/uL (1.8-7.7); Neutrophils % 69.2 %; Nucleated Red Blood Cells % 0 %; Platelet Count 146 10^3/cmm (130-400); Red Blood Count 5.69 10^6/uL (4.1-5.3); Red Cell Distribution Width 12.8 % (12.1-15.1)
[2022-02-18 05:41] LABS: Blood Urea Nitrogen 23 mg/dL (8-23); Calcium 9.1 mg/dL (8.5-10.5); Carbon Dioxide 21 mmol/L (22-29); Chloride 104 mmol/L (98-107); Glomerular Filtration Rate 66.2 mL/min (90-130); Glucose 125 mg/dL (65-115); Osmolality Calculated 287 mOsm/kg (285-295); Sodium 136 mmol/L (136-145)
[2022-02-18 06:04] LABS: Anion Gap 15.1 (5-19); Potassium 4.1 mmol/L (3.5-5.1)
[2022-02-18] MEDS: lacosamide 50 mg Tablet 200 MG PO (09:40)
[2022-02-18] MEDS: apixaban 5 mg Tablet PO (09:41)
[2022-02-18] MEDS: lisinopril 20 mg Tablet PO (09:41)
[2022-02-18] MEDS: metoprolol succinate ER (24 HR) 50 mg Tablet PO (09:41)
[2022-02-18] MEDS: pantoprazole DR 40 mg Tablet PO (09:41)
[2022-02-18] MEDS: cyanocobalamin 1,000 mcg Tablet 1000 MCG PO (09:41)
[2022-02-18] MEDS: levothyroxine 100 mcg Tablet PO (09:41)
[2022-02-18] MEDS: atorvastatin 40 mg Tablet 20 MG PO (09:41)
[2022-02-18] MEDS: amlodipine 10 mg Tablet PO (09:41)
--- NOTE | 2022-02-18 11:34 | PC.SOCIAL ---
IMM update Imm updated with and patient. Copy of page 2 provided at bedside. Patient and verbalized understanding . Copy in chart initialed, dated and timed.
[2022-02-18] MEDS: levETIRAcetam 500 mg Tablet 1500 MG PO (13:44)
--- NOTE | 2022-02-18 21:44 | P.DS_ITS ---
Discharge Providers Date of Admission: 02/15/22 00:18 Date of Discharge: February 18, 2022 Attending Provider at Admission: Chilo Pacheco MD Attending Provider at Discharge: Brian Zazueta Primary Care Provider: Gonzalo Linares Diagnoses at Discharge Discharge Diagnosis (1) Post-ictal confusion: Status: Acute (2) Breakthrough seizure: Status: Acute (3) Atrial fibrillation: Status: Acute (4) Alzheimer's dementia without behavioral disturbance: Status: Acute Reason for Visit Reason for Visit: STROKE ALERT Hospital Course Hospital Course 71-year-old gentleman with history of epilepsy, past history of status epilepticus, with severe postictal confusion, agitation, was admitted after presenting with new onset left hemiparesis underwent evaluation for possible CVA, with witnessed complex partial seizure on the left side, was loaded with IV Keppra, started on lacosamide, with resolution of seizure, subsequently with pro longed postictal period, confusion, agitation, requiring antipsychotic medication, during a time unable to take oral medications, receiving antiepileptics IV. With aspiration pneumonitis, requiring oxygen support, but gradually improving. Remained afebrile, without leukocytosis, without signs of acute infection. Mental status gradually improved. Remained calm, partially oriented, which is his baseline with history of Alzheimer's dementia. Mild CARMELITA resolved. Mild elevation of TSH, levothyroxine increased slightly to 113 mcg at discharge. His antiepileptic regimen was adjusted by neurology, he is asked to discontinue Depakote, continue on Keppra, lacosamide for which she is provided a prescription. Discussed with his who is making best efforts to try to monitor compliance with medications at home, encouraging him to take medications and refilling his pillbox. Physical Exam Const: COMMON NORMALS: patient oriented x3 and alert GENERAL APPEARANCE: cooperative ORIENTATION/CONSCIOUSNESS: Yes awake, Yes oriented to person and Yes oriented to place; not oriented to time HENMT: COMMON NORMALS: oropharynx normal Neck/C-Spine: COMMON NORMALS: no JVD Resp: COMMON NORMALS: normal respiratory effort and clear to auscultation bilaterally AUSCULTATION: clear to auscultation bilaterally Cardio: COMMON NORMALS: no JVD, regular rhythm, S1 normal heart sound present, S2 normal heart sound present and No murmurs present (Cardio) RHYTHM: regular rhythm HEART SOUNDS: S1 normal heart sound present and S2 normal heart sound present GI: COMMON NORMALS: Normal to inspection, nondistended, normoactive bowel sounds present, Soft to palpation and non-tender PALPATION: Yes Soft to palpation Extremity: COMMON NORMALS: no joint enlargement and no pedal edema Neuro: COMMON NORMALS: patient oriented x3 and moves all extremities SENSORIUM/ORIENTATION: Yes alert, Yes oriented to person, Yes oriented to place and No oriented to time Skin: COMMON NORMALS: no rashes or lesions noted GENERAL SKIN EXAM: no rashes or lesions noted Urinary Catheter Management: Arango Latex: Cath Placed During This Visit: yes, but has since been removed by the nurse Reason for Continuing Indwelling Catheter: Not indwelling catheter Urinary Catheter Date of Insertion: 02/14/22 Urinary Catheter Time of Insertion: 19:58 Date Urinary Catheter Removed: 02/18/22 Time Urinary Catheter Discontinued: 16:00 Discharge Data Studies Completed and Pending Completed Studies During Hospitalization Category Date Time Status CT angio headneck* [id number] Stat Cat Scan 02/14/22 17:[address] head wo con* [id number] Stat Cat Scan 02/14/22 Completed XR chest 1V portable [id number] Stat Exams 02/14/22 21:23 Completed Pending at discharge Category Date Time Status T4, Thyroxine, Total Routine Lab 02/18/22 04:17 Received Radiology Impressions Head CT 02/14/22 00:00 IMPRESSION: No acute intracranial abnormality. ASSESSMENT: ASPECTS ([place] Stroke Program Early CT Score) is 10. Head/Neck CTA 02/14/22 17:51 IMPRESSION: Motion limited exam. No evident large vessel stenosis or occlusion. IMPRESSION: Motion limited exam. No evident stenosis or occlusion. REFERENCES: NASCET CRITERIA. The degree of stenosis in the cervical segment of the internal carotid artery is based on NASCET criteria. Normal is no stenosis. Mild is less than 50% stenosis. Moderate is 50-69% stenosis. Severe is 70% to 99% stenosis. Total occlusion is no detectable patent lumen. Chest X-Ray 02/14/22 21:23 IMPRESSION: Sequela of COPD. No consolidation. Laboratory Results WBC 8.0 10^3/uL (4.0-10.0) 02/18/22 04:17 RBC 5.69 10^6/uL (4.1-5.3) H 02/18/22 04:17 Hgb 18.3 g/dL (11.7-16.6) H 02/18/22 04:17 Hct 56.2 % (42.0-52.0) H 02/18/22 04:17 MCV 98.8 fl (80-94) H 02/18/22 04:17 MCH 32.2 pg (28.0-34.0) 02/18/22 04:17 MCHC 32.6 g/dL (30.0-36.0) 02/18/22 04:17 RDW 12.8 % (12.1-15.1) 02/18/22 04:17 Plt Count 146 10^3/cmm (130-400) 02/18/22 04:17 MPV 10.2 fL (7.4-10.4) 02/18/22 04:17 Neut % (Auto) 69.2 % 02/18/22 04:17 Lymph % (Auto) 9.3 % 02/18/22 04:17 [place] % (Auto) 15.6 % 02/18/22 04:17 Eos % (Auto) 4.6 % 02/18/22 04:17 Baso % (Auto) 0.8 % 02/18/22 04:17 Neut # (Auto) 5.51 10^3/uL (1.8-7.7) 02/18/22 04:17 Lymph # (Auto) 0.7 10^3/uL (0.8-4.8) L 02/18/22 04:17 [place] # (Auto) 1.2 10^3/uL (0.2-0.9) H 02/18/22 04:17 Eos # (Auto) 0.4 10^3/uL (0.0-0.8) 02/18/22 04:17 Baso # (Auto) 0.1 10^3/uL (0.0-0.1) 02/18/22 04:17 Nucleated RBC % (auto) 0 % 02/18/22 04:17 Nucleated RBCs # 0.0 /100WBC 02/18/22 04:17 PT 12.70 SECONDS (12.1-14.9) 02/14/22 18:05 INR 0.93 (0.8-1.2) 02/14/22 18:05 APTT 28.1 SECONDS (23.9-36.7) 02/14/22 18:05 Sodium 136 mmol/L (136-145) 02/18/22 04:17 Potassium 4.1 mmol/L (3.5-5.1) 02/18/22 04:17 Chloride 104 mmol/L (98-107) 02/18/22 04:17 Carbon Dioxide 21 mmol/L (22-29) L 02/18/22 04:17 Anion Gap 15.1 (5-19) 02/18/22 04:17 BUN 23 mg/dL (8-23) 02/18/22 04:17 Creatinine 1.1 mg/dL (0.7-1.2) 02/18/22 04:17 GFR Calculation 66.2 mL/min (90-130) L 02/18/22 04:17 Glucose 125 mg/dL (65-115) H 02/18/22 04:17 POC Glucose 94 mg/dL (70-110) 02/14/22 17:54 Calculated Osmolality 287 mOsm/kg (285-295) 02/18/22 04:17 Calcium 9.1 mg/dL (8.5-10.5) 02/18/22 04:17 Total Bilirubin 0.9 mg/dL (0.15-1.2) 02/14/22 18:05 AST 27 U/L (0-40) 02/14/22 18:05 ALT 23 U/L (0-41) 02/14/22 18:05 Alkaline Phosphatase 43 U/L (40-130) 02/14/22 18:05 Creatine Kinase 100 U/L (39-308) 02/16/22 13:45 C-Reactive Protein 10.8 mg/L (0.0-4.9) H 02/14/22 21:23 Total Protein 7.0 g/dL (6.6-8.7) 02/14/22 18:05 Albumin 4.0 g/dL (3.5-5.2) 02/14/22 18:05 Globulin 3.0 g/dL (1.3-4.6) 02/14/22 18:05 Procalcitonin 0.06 ng/mL (0-0.5) 02/14/22 21:23 TSH 6.52 uIU/mL (0.27-4.20) H 02/15/22 02:58 Urine Color Yellow (Yellow) 02/14/22 19:49 Urine Appearance Clear (CLEAR) 02/14/22 19:49 Urine pH 6 (5-7) 02/14/22 19:49 Ur Specific [place] 1.010 (1.005-1.030) 02/14/22 19:49 Urine Protein Neg (Negative) 02/14/22 19:49 Urine Glucose (UA) Norm (Normal) 02/14/22 19:49 Urine Ketones 1+ (Negative) H 02/14/22 19:49 Urine Blood 2+ (Negative) H 02/14/22 19:49 Urine Nitrate Negative (Negative) 02/14/22 19:49 Urine Bilirubin Neg (Negative) 02/14/22 19:49 Urine Urobilinogen Norm mg/dL (Negative) 02/14/22 19:49 Ur Leukocyte Esterase Negative (Negative) 02/14/22 19:49 Urine RBC 0-4 /hpf (0-2) H 02/14/22 19:49 Urine WBC None /hpf (0-5) 02/14/22 19:49 Ur Squamous Epith Cells 0-4 /hpf (0-5) H 02/14/22 19:49 Ur Transition Epith Cell None /hpf 02/14/22 19:49 Ur Renal Epithelial Cell N /hpf 02/14/22 19:49 Calcium Oxalate Crystal None /hpf 02/14/22 19:49 Uric Acid Crystals N /hpf 02/14/22 19:49 Triple Phos Crystals None /hpf 02/14/22 19:49 Other Crystals N /hpf 02/14/22 19:49 Amorphous Sediment Not Reportable 02/14/22 19:49 Urine Bacteria None /hpf (NONE) 02/14/22 19:49 Urine Mucus N /hpf 02/14/22 19:49 Urine Opiates Screen Negative ng/mL (Negative) 02/14/22 19:49 Ur Barbiturates Screen Negative ng/mL (Negative) 02/14/22 19:49 Valproic Acid 40.3 ug/mL (50-100) L 02/15/22 02:58 Ur Phencyclidine Scrn Negative ng/mL (Negative) 02/14/22 19:49 Ur Amphetamines Screen Negative ng/mL (Negative) 02/14/22 19:49 U Benzodiazepines Scrn Negative ng/mL (Negative) 02/14/22 19:49 Urine Cocaine Screen Negative ng/mL (Negative) 02/14/22 19:49 U Marijuana (THC) Screen Positive ng/mL (Negative) H 02/14/22 19:49 Vitals Last Vital Signs Temp 98.2 F 02/18/22 15:10 Pulse 93 02/18/22 15:10 Resp 17 02/18/22 15:10 BP 133/92 02/18/22 15:10 Pulse Ox 94 02/18/22 15:10 O2 Del Method 02/18/22 11:29 O2 Flow Rate 3 02/18/22 14:39 Discharge Plan Discharge Patient Disposition: Home Condition: Stable Prescriptions: New Vimpat 50 mg Tablet 200 mg PO BID Qty: 180 0RF levothyroxine 13 mcg capsule 13 mcg PO DAILY Qty: 30 0RF Continued midazolam 5 mg/spray (0.1 mL) spray,non-aerosol 1 spray intranasal ONCE Qty: 1 5RF lorazepam [Lorazepam Intensol] 2 mg/mL concentrate 2 mg sublingual DAILY PRN (Reason: seizure activity) Qty: 30 2RF atorvastatin 20 mg tablet 20 mg PO DAILY apixaban 5 mg tablet 5 mg PO BID galantamine 8 mg tablet 8 mg PO BID Qty: 60 2RF Rx Instructions: administer with AM and PM meals albuterol sulfate [ProAir HFA] 90 mcg/actuation Hfa Aerosol Inhaler 2 puff INHALATION Q6H PRN (Reason: Shortness Of Breath) metoprolol succinate 50 mg tablet extended release 24 hr 50 mg PO DAILY Qty: 30 3RF lisinopril 20 mg Tablet 20 mg PO BID levothyroxine 100 mcg Tablet 100 mcg PO DAILY amlodipine 10 mg Tablet 10 mg PO DAILY cyanocobalamin (vitamin B-12) 1,000 mcg Capsule 1,000 mcg PO DAILY fluticasone propion-salmeterol [Advair Diskus] 250-50 mcg/dose Blister With Device 1 inh INHALATION BID sildenafil 100 mg Tablet 100 mg PO DAILY PRN (Reason: Sexual Activity) Rx Instructions: administer 30 minutes to 4 hours before activity levetiracetam [Keppra] 750 mg tablet 1,500 mg PO BID Qty: 400 4RF Discontinued divalproex [Depakote ER] 500 mg tablet extended release 24 hr 1,000 mg PO BID Discharge Orders: Discharge Order (Routine); Ordered 02/18/22 Ordered By: Brian Zazueta Other Ambulatory Orders: DME: Oxygen (Order) Location: None Selected Ordered By: Brian Zazueta DME: Oxygen (Order) Location: None Selected Ordered By: Brian Zazueta Referrals: Gonzalo Linares, ANP [Primary Care Provider] - 03/15/22 10:45 am Discharge Diet: Soft Mechanical Patient Instructions: Atrial Fibrillation, Levofloxacin (By mouth), Lacosamide (By mouth), Epilepsy (DC) Activity Restrictions/Additional Instructions: Please follow-up with neurology for continued optimization of control of epilepsy. Please have your primary doctor reassess your kidney function after improving acute kidney injury. Please have your primary doctor reassess your thyroid function. For now take increased dose of levothyroxine 113 mcg/day. Discharge Attestations Time Spent in Discharge Care*: greater than 30 min Status at Discharge: Cognitive status at discharge: cognitively intact , Behavioral status at discharge: cooperative , Quality Metrics Clinical Quality Measures [ No reported AMI, CVA or VTE this stay] Coding Level of Care Code Acute Chg FW DC note Diagnoses Post-ictal confusion F05 Breakthrough seizure G40.919 Atrial fibrillation I48.91 Alzheimer's dementia without behavioral disturbance G30.9; F02.80
[2022-02-19 09:14] LABS: T4 Total 5.1 mcg/dL (4.9-10.5)
== END 2022-02-18 16:26 | disposition home or self-care (01) | DRG 101 ==
LOC: ER 21:21 → ICU 23:08 → MEDSURG 02-17 20:29
PROVIDERS: Family Medicine; Admitting Provider Family Medicine; Emergency Provider Emergency Medicine; PCP Nurse Practitioner Family; Visit Provider Internal Medicine
DX: G40.119 Localization-related (focal) (partial) symptomatic epilepsy and epileptic syndromes with simple partial seizures, intractable, without status epilepticus (principal); F05 Delirium due to known physiological condition; N17.9 Acute kidney failure, unspecified; G81.94 Hemiplegia, unspecified affecting left nondominant side; I48.91 Unspecified atrial fibrillation; G30.9 Alzheimer's disease, unspecified; F02.80 Dementia in other diseases classified elsewhere, unspecified severity, without behavioral disturbance, psychotic disturbance, mood disturbance, and anxiety; Z79.01 Long term (current) use of anticoagulants; G83.84 Todd's paralysis (postepileptic); Z66 Do not resuscitate; E03.9 Hypothyroidism, unspecified; I10 Essential (primary) hypertension; J44.9 Chronic obstructive pulmonary disease, unspecified; R09.02 Hypoxemia
CPT/HCPCS: 36415; 36416; 51702; 70450; 70496; 70498; 71045; 80048; 80053; 80164; 80306; 81001; 82550; 82962; 84145; 84436; 84443; 85025; 85610; 85730; 86140; 92523; 92610; 93005; 94760; 96372; 96374; 96375; 97116; 97161; 97166; 97530; 99285; 99291; 99292; C9254; J1630; J1953; J2250; J3490; Q9967

== ENCOUNTER → 2022-03-15 10:15 | Outpatient (BNVA) | payer OTHER, SELFPAY | PROVIDERS: Visit Provider Specialist | DX: G40.111 Localization-related (focal) (partial) symptomatic epilepsy and epileptic syndromes with simple partial seizures, intractable, with status epilepticus (principal); G83.84 Todd's paralysis (postepileptic); S63.502A Unspecified sprain of left wrist, initial encounter; G30.9 Alzheimer's disease, unspecified; F02.80 Dementia in other diseases classified elsewhere, unspecified severity, without behavioral disturbance, psychotic disturbance, mood disturbance, and anxiety; G40.803 Other epilepsy, intractable, with status epilepticus; Y93.9 Activity, unspecified; R26.89 Other abnormalities of gait and mobility | CPT/HCPCS: 73100; 73120; 99215 ==

== ENCOUNTER → 2022-06-21 10:36 | Outpatient (BNVA) | payer OTHER, SELFPAY | PROVIDERS: Visit Provider Specialist | DX: G40.119 Localization-related (focal) (partial) symptomatic epilepsy and epileptic syndromes with simple partial seizures, intractable, without status epilepticus (principal); G30.9 Alzheimer's disease, unspecified; F02.80 Dementia in other diseases classified elsewhere, unspecified severity, without behavioral disturbance, psychotic disturbance, mood disturbance, and anxiety; G40.309 Generalized idiopathic epilepsy and epileptic syndromes, not intractable, without status epilepticus | CPT/HCPCS: 99214 ==

== ENCOUNTER → 2022-10-20 11:03 | Outpatient (BNVA) | payer OTHER, SELFPAY | PROVIDERS: PCP Nurse Practitioner; Visit Provider Specialist | DX: G40.111 Localization-related (focal) (partial) symptomatic epilepsy and epileptic syndromes with simple partial seizures, intractable, with status epilepticus (principal); G83.84 Todd's paralysis (postepileptic); Z79.899 Other long term (current) drug therapy | CPT/HCPCS: 99214 ==

== ENCOUNTER 2023-02-01 03:30 | Inpatient (IN) | payer OTHER, SELFPAY ==
[2023-02-01] VITALS (42 sets, daily range): BP systolic 119–165; BP diastolic 81–98; PULSE 68–96; RESP 16–36; TEMP 36.5–37.2; O2SAT 92–98
[2023-02-01] MEDS: enoxaparin 30 mg/0.3 mL Syringe SUBCUT (04:57)
[2023-02-01] MEDS: dextrose 5%-sod chloride 0.45% 1,000 ML 75 ML IV (04:58)
--- NOTE | 2023-02-01 05:13 | P.HP_ITS ---
Providers/Chief Complaint Admitting Physician: Sarthak Renteria DO Primary Care Provider: Catie Martin Chief Complaint: Seizure and Hypertension History of Present Illness Orion Varghese is a 72 year old male with known epilepsy sees Dr. Lisa Mccallum for this condition. He also has diagnosis of dementia. Patient is unable to give history and had a long day and had at home. History is taken from chart. I reviewed chart from [facility]. And Dr. Mccallum's last note. It appears patient's antiseizure medications are as follows: Keppra 1000 mg twice daily Vimpat 200 mg twice daily Of note Dr. Mccallum's note from October 2022 says that the patient was running out of Vimpat. There is also concern via the [facility] that patient may not be taking meds correctly since his TSH is 12 and he should be on Synthroid. Also notes from Dr. Mccallum states that he has a postictal left hemiparesis. And notes reflect prolonged postictal state about a month ago at [facility]. Patient responds only to a deep sternal rub. Review of Systems General: Reports: ROS unobtainable due to mental status Medications/Allergies Home Medications Medication Instructions Recorded Confirmed Last Taken Type apixaban 5 mg tablet 5 mg PO BID 10/14/19 10/20/22 02/14/22 History albuterol sulfate 90 mcg/actuation 2 puff inhalation Q6H PRN 10/14/20 10/20/22 Unknown History aerosol inhaler (ProAir HFA) Shortness Of Breath metoprolol succinate 50 mg 50 mg PO DAILY #30 tabs 10/18/20 10/20/22 02/14/22 Rx tablet,extended release 24 hr atorvastatin 20 mg tablet 20 mg PO DAILY 08/03/21 10/20/22 02/13/22 History fluticasone 250 mcg-salmeterol 50 1 inh inhalation BID 12/28/21 10/20/22 02/14/22 History mcg/dose blistr powdr for inhalation (Advair Diskus) sildenafil 100 mg tablet 100 mg PO DAILY PRN Sexual Activity 12/28/21 10/20/22 Unknown History amlodipine 10 mg tablet 10 mg PO DAILY 02/14/22 10/20/22 02/14/22 History cyanocobalamin (vitamin B-12) 1,000 mcg PO DAILY 02/14/22 10/20/22 02/14/22 History 1,000 mcg capsule levothyroxine 100 mcg tablet 100 mcg PO DAILY 02/14/22 10/20/22 02/14/22 History lisinopril 20 mg tablet 20 mg PO BID 02/14/22 10/20/22 02/14/22 History levothyroxine 13 mcg capsule 13 mcg PO DAILY #30 caps 02/18/22 10/20/22 Unknown Rx arm brace (Wrist Brace Large) #1 ea 03/15/22 10/20/22 Unknown Rx lorazepam 2 mg/mL oral concentrate 2 mg sublingual DAILY PRN seizure 04/07/22 10/20/22 Unknown Rx (Lorazepam Intensol) activity #30 mL galantamine 8 mg tablet 8 mg PO BID #60 tabs 06/21/22 10/20/22 Unknown Rx divalproex 500 mg tablet,extended 500 mg PO DAILY #60 tabs 10/11/22 10/20/22 Unknown Rx release 24 hr (Depakote ER) levetiracetam 1,000 mg tablet 1,000 mg PO BID #180 tabs 10/11/22 10/20/22 Unknown Rx (Keppra) lacosamide 200 mg tablet (Vimpat) 200 mg PO BID #180 tabs 10/20/22 10/20/22 Unknown Rx Allergies Allergy/AdvReac Type Severity Reaction Status Date / Time No Known Allergies Allergy Verified 10/20/22 11:27 PFSH Acute PFSH: Medical History (Updated 02/01/23 @ 05:26 by Sarthak Renteria DO) Alzheimer disease Atrial fibrillation COPD (chronic obstructive pulmonary disease) 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, intractable Generalized epilepsy Generalized epilepsy Hypertension Hypothyroidism Mild cognitive impairment Polycythemia Receptive aphasia Secondarily generalized seizures Toxic encephalopathy Surgical History History of hernia repair Family History Other Cancer Social History Smoking and tobacco status: former smoker Alcohol intake: current Alcohol intake frequency: 0-2 Drinks per Day Alcohol type: hard liquor Vitals/I&O/Wt Last Vital Signs O2 Del Method Non-Rebreather 02/01/23 04:03 Weight last 48 hrs Weight 101.775 kg Physical Exam Narrative: Vital signs: 165/98, 83, 95% on 10 L. In general patient appears well-hydrated well-nourished. Neurologic GCS 7 E: 1V: 2M: 4 HEENT head is normocephalic atraumatic pupils are equal and reactive to light and accommodation Mucous membranes are moist and pink neck is supple no JVD carotid bruits or lymphadenopathy Cardiac: Heart is regular normal S1-S2 heart rate is around 80 no A-fib noted Respiratory: Clear to auscultation anteriorly GI: Soft nontender nondistended normal active bowel sounds Extremities: For present no clubbing cyanosis or edema Skin warm and dry no lesions or rashes Data Other Labs: Labs pending admission A&P Assessment and plan (1) Epilepsia partialis continua, intractable epilepsy, pharmacoresistant: (2) Post-ictal confusion: (3) Breakthrough seizure: (4) Alzheimer's dementia without behavioral disturbance: (5) Atrial fibrillation: Plan 1. Breakthrough seizure with known epilepsy. -Obtain Depakote level Keppra level Vimpat level. -Continue Keppra 1000 mg IV every 12 hours - -Continue Vimpat 200 mg every 12 hours. -Add Dilantin loading dose and Dilantin 300 mg daily 2. Postictal state. Suspect patient will be in postictal state for many days given history and abnormal brain imaging. 3. May need to consider feeding via NG tube in a few days if patient does not wake up 4. Patient is DNR/DNI per statement at [facility] facility. Recommend attaining purple form: [place] DNR 5. Hypertension: Patient will receive Lopressor 5 mg IV every 4 hours, Vasotec scheduled 6. Hold all oral medication at this time due to mental status 7. Hypothyroidism. [facility] Synthroid 100 mcg IV daily for now. 8. High risk state for aspiration. Hold antibiotics for now. Attestations Medical Necessity Statement*: Patient with life-threatening epilepsy and postictal state. Requires intravenous antiepileptics including adding a third antiepileptic. Patient at high risk and postictal state for aspiration. Coding Level of Care Code Acute Code for Chg Fwd Diagnoses Epilepsia partialis continua, intractable epilepsy, pharmacoresistant G40.119 Post-ictal confusion F05 Breakthrough seizure G40.919 Alzheimer's dementia without behavioral disturbance G30.9; F02.80 Atrial fibrillation I48.91
[2023-02-01] MEDS: metoprolol tartrate 1 mg/1 mL SDV 5 mL 5 MG IVP ×5 (05:42→21:20)
[2023-02-01] MEDS: lacosamide 200 MG in sodium chloride 0.9% 50 ML 120 MG IV ×2 (05:42→17:41)
[2023-02-01 06:21] LABS: Basophils % 0.2 %; Eosinophils % 0.1 %; Hematocrit 60.1 % (37-53); Lymphocytes # 0.4 10^3/uL (0.8-4.8); Lymphocytes % 3.2 %; Mean Corpuscular HGB Conc 33.4 g/dL (30-55); Mean Corpuscular Hemoglobin 32.8 pg (27-33); Mean Platelet Volume 9.9 fL (7.4-10.4); Monocytes # 1.1 10^3/uL (0.2-0.9); Monocytes % 9.3 %; Neutrophils # 10.31 10^3/uL (1.8-7.7); Neutrophils % 86.4 %; Nucleated Red Blood Cells % 0 %; Platelet Count 166 10^3/cmm (157-399); Red Blood Count 6.13 10^6/uL (3.85-5.65); Red Cell Distribution Width 13.3 % (12.1-15.1); White Blood Count 11.93 10^3/uL (3.29-11.43)
[2023-02-01] MEDS: enalaprilat 1.25 mg/mL Inj IVP ×3 (06:33→19:19)
[2023-02-01 06:36] LABS: Alanine Aminotransferase 15 U/L (0-41); Albumin Level 4.5 g/dL (3.5-5.2); Alkaline Phosphatase 70 U/L (40-130); Anion Gap 11.5 (5-19); Aspartate Amino Transferase 19 U/L (0-40); Blood Urea Nitrogen 17 mg/dL (8-23); Calcium 8.8 mg/dL (8.5-10.5); Carbon Dioxide 31 mmol/L (22-29); Chloride 98 mmol/L (98-107); Globulin 2.9 g/dL (1.3-4.6); Glucose 160 mg/dL (65-115); Magnesium 1.9 mg/dL (1.7-2.3); Osmolality Calculated 285 mOsm/kg (285-295); Potassium 5.5 mmol/L (3.5-5.1); Sodium 135 mmol/L (136-145); Total Bilirubin 0.7 mg/dL (0.15-1.2); Total Protein 7.4 g/dL (6.6-8.7); Valproic Acid Level 2.8 ug/mL (50-100)
[2023-02-01] MEDS: levothyroxine 100 mcg SDV IVP (08:55)
--- NOTE | 2023-02-01 10:37 | PC.PHAR ---
PT UNRESPONSIVE THIS AM, LEFT MESSAGE FOR TO CALL BACK ON MEDICATIONS. 02/01/23
--- NOTE | 2023-02-01 12:16 | PC.PHAR ---
PT UNRESPONSIVE BOTH TIMES I ENTERED ROOM. LEFT MSG FOR . SHE CALLED AND SAID SHE WAS IN THE ROOM. ARRIVED BACK TO ROOM TO FIND BAG OF MEDICATIONS, NOT . PHONED TO VERIFY WITH PT NO LONGER TAKING AMLODIPINE 10 MG, B-12, DEPAKOTE ER 500 MG, ADVAIR DISCUS,LISINOPRIL 20 MG, LORAZEPAM 2MG/ML, SINDENAFIL 100MG. 02/01/23 12:20 PM
--- NOTE | 2023-02-01 13:00 | PM.PN ---
Vitals/I&O/Wt Last Vital Signs Temp 98.0 F 02/01/23 11:24 Pulse 75 02/01/23 11:24 Resp 18 02/01/23 11:24 BP 140/87 02/01/23 11:24 Pulse Ox 97 02/01/23 11:24 O2 Del Method Simple Mask 02/01/23 11:24 O2 Flow Rate 10 02/01/23 04:23 01/31/23 02/01/23 02/01/23 22:59 06:59 14:59 Intake Total 210 / 210 Balance 210 / 210 Weight last 48 hrs Weight 101.775 kg Physical Exam Narrative: Accompanied by his at bedside. Const: GENERAL APPEARANCE: cooperative and lethargic ORIENTATION/CONSCIOUSNESS: Yes awake and Yes lethargic HENMT: COMMON NORMALS: oropharynx normal Neck/C-Spine: COMMON NORMALS: no JVD Resp: COMMON NORMALS: normal respiratory effort and clear to auscultation bilaterally AUSCULTATION: clear to auscultation bilaterally Cardio: COMMON NORMALS: no JVD, regular rhythm, S1 normal heart sound present, S2 normal heart sound present and No murmurs present (Cardio) RHYTHM: regular rhythm HEART SOUNDS: S1 normal heart sound present and S2 normal heart sound present GI: COMMON NORMALS: Normal to inspection, nondistended, normoactive bowel sounds present, Soft to palpation and non-tender PALPATION: Yes Soft to palpation Extremity: COMMON NORMALS: no joint enlargement and no pedal edema Neuro: COMMON NORMALS: moves all extremities SENSORIUM/ORIENTATION: Yes lethargic Skin: COMMON NORMALS: no rashes or lesions noted GENERAL SKIN EXAM: no rashes or lesions noted Data 02/01/23 06:08 02/01/23 06:08 A&P Assessment and plan (1) Epilepsia partialis continua, intractable epilepsy, pharmacoresistant: (2) Post-ictal confusion: (3) Breakthrough seizure: (4) Alzheimer's dementia without behavioral disturbance: (5) Atrial fibrillation: Plan 1. Breakthrough seizure with known epilepsy. So far no further obvious seizure activity. He has been lethargic, appears to be postictal, reviewed neurology note from recent appointment in October. May be postictal with lethargy, behavioral changes with violence. Monitor for any behavioral changes. Discussed with his . Reviewed pending labs, reviewed valproic acid level. Low, but he is not on valproic acid. Reviewed lacosamide and Keppra levels, both are still pending. Continue Keppra and lacosamide. 2. Postictal state. Continue supportive care with postictal state. Currently no obvious ongoing seizure. He does wake somewhat to voice, opens his eyes to his name, replies he is not in, does squeeze his hands, could not get him to answer further questions or follow further directions. Still lethargic. Hold oral medications for now until able to have oral intake. Discussed with case management. Suspect patient will be in postictal state for many days given history and abnormal brain imaging. Per discussion with his he has had some issues with dysarthria for about 4-5 months. Additionally overall his health has significantly endocrine recently as well as his cognitive function. He has been more dependent on tasks on others, although has been able to dress and feed himself, usually knows where he is and recognizes family. [facility] Hypertension: Continue Lopressor 5 mg IV every 4 hours, Vasotec scheduled Polycythemia: Noted hemoglobin 28, RBC 6.13. Continue gentle IV hydration. Reassess. Hyperkalemia: Recheck potassium level. At risk of arrhythmia. Monitor on telemetry. Hypothyroidism. [facility] Synthroid 100 mcg IV daily for now. High risk state for aspiration. Hold antibiotics for now. Attestations Medical Necessity Statement*: Continue admission for assessment management following breakthrough seizure, postictal state, hyperkalemia, polycythemia. Diagnoses Epilepsia partialis continua, intractable epilepsy, pharmacoresistant G40.119 Post-ictal confusion F05 Breakthrough seizure G40.919 Alzheimer's dementia without behavioral disturbance G30.9; F02.80 Atrial fibrillation I48.91
--- NOTE | 2023-02-01 14:20 | PC.NURSE ---
pt had been unresponsive except to painful stimuli until 1400.with repositioning,he opened eyes...when asked if he knew who is was... he said yes .when asked if he knew where he was..he said no .he moved all extremities on command.equal hand peripheral equipment operator noted.
[2023-02-01 14:23] LABS: Creatine Phosphokinase 51 U/L (39-308)
[2023-02-01 22:18] LABS: Potassium 4.5 mmol/L (3.5-5.1)
[2023-02-02] VITALS (40 sets, daily range): BP systolic 91–176; BP diastolic 64–114; PULSE 54–103; RESP 18–23; TEMP 36.4–36.9; O2SAT 89–99
[2023-02-02] MEDS: metoprolol tartrate 1 mg/1 mL SDV 5 mL 5 MG IVP ×6 (01:17→20:21)
[2023-02-02] MEDS: dextrose 5%-sod chloride 0.45% 1,000 ML 75 ML IV (01:18)
[2023-02-02] MEDS: enalaprilat 1.25 mg/mL Inj IVP ×3 (01:18→14:23)
[2023-02-02 04:54] LABS: Basophils % 0.3 %; Eosinophils % 0.2 %; Hematocrit 55.8 % (37-53); Lymphocytes # 0.9 10^3/uL (0.8-4.8); Lymphocytes % 9.1 %; Mean Corpuscular HGB Conc 33.7 g/dL (30-55); Mean Corpuscular Hemoglobin 32.9 pg (27-33); Mean Corpuscular Volume 97.6 fl (82-101); Mean Platelet Volume 10.4 fL (7.4-10.4); Monocytes # 1.2 10^3/uL (0.2-0.9); Neutrophils # 7.77 10^3/uL (1.8-7.7); Nucleated Red Blood Cells % 0 %; Platelet Count 148 10^3/cmm (157-399); Red Blood Count 5.72 10^6/uL (3.85-5.65); Red Cell Distribution Width 13.2 % (12.1-15.1); White Blood Count 9.97 10^3/uL (3.29-11.43)
[2023-02-02 05:25] LABS: Phosphorus 2.1 mg/dL (2.5-4.5)
[2023-02-02] MEDS: enoxaparin 30 mg/0.3 mL Syringe SUBCUT (05:25)
[2023-02-02 05:26] LABS: Anion Gap 11.5 (5-19); Blood Urea Nitrogen 17 mg/dL (8-23); Calcium 9.2 mg/dL (8.5-10.5); Carbon Dioxide 30 mmol/L (22-29); Chloride 98 mmol/L (98-107); Glucose 132 mg/dL (65-115); Osmolality Calculated 283 mOsm/kg (285-295); Potassium 4.5 mmol/L (3.5-5.1); Sodium 135 mmol/L (136-145)
[2023-02-02] MEDS: lacosamide 200 MG in sodium chloride 0.9% 50 ML 120 MG IV ×2 (05:28→17:05)
[2023-02-02] MEDS: levothyroxine 100 mcg SDV IVP (08:42)
--- NOTE | 2023-02-02 10:44 | PC.CHAP ---
Pastoral Care Encounter/Spiritual Assessment Type of Contact [x] Declined outdoor landscape architect visit [] Patient/Family/Request visit [] Outpatient visit [] Follow-up visit [] Physician referral [] Code/Alert [] Routine visit [] Staff referral [] Actively dying [] Patient sleeping [] Family support [] [] Out of room [] Palliative care [] [] Receiving care in room [] Pre-surgical visit [] Trauma [] Long length of stay [] ICU visit [] Other: Relational/Emotional Strength [] Patient feels connected with others/family/visitors/staff [] Distress [] Loneliness/isolation [] Abandonment Spirituality of Patient [] Person of Carrie [] Attends Orthodox of their Carrie [] Believes in Prayer [] Reads Bible or Church materials [] There are Spiritual issues to be addressed Harmonica Maker Interventions [] Prayer [] Active listening [] Non-anxious presence [] Spiritual/emotional support [] Crisis/trauma care [] Spiritual counseling [] Bereavement support [] Provided bereavement packet [] Provided Bible/devotional materials [] Provided toy/stuffed animal, coloring book to patient or family member [] Provided Communion [] Anointing/[place] [] Salvation [] Completed spiritual assessment [] Other: Impact on Illness or Injury [] Angry [] Fearful [] Anxious [] Often cries [] Exhaustion [] Unable to work [] Unable to attend oriental orthodox [] Unable to walk/stand [] Unable to read [] Unable to drive [] Unable to eat/drink [] Unable to sleep [] Unable to be with family [] Patient intubated [] Other: Summary Declined outdoor landscape architect visit Time spent with patient 5 mins
[2023-02-02 16:09] LABS: Levetiracetam Immunoassy 32.1 mcg/mL (6.0-46.0)
--- NOTE | 2023-02-02 17:02 | XRR_ITS ---
PROCEDURE INFORMATION: Exam: XR Chest Exam date and time: 02/02/2023 5:18 PM Age: 72 years old Clinical indication: Dyspnea TECHNIQUE: Imaging protocol: Radiologic exam of the chest. Views: 1 view. COMPARISON: CR XR chest 1V portable [id number] 02/14/2022 9:50 PM FINDINGS: Lungs: The lungs are hyperinflated but free of acute disease. Pleural spaces: Unremarkable. No pleural effusion. No pneumothorax. Heart/Mediastinum: Unremarkable. No cardiomegaly. Bones/joints: Unremarkable. XR/XR chest 1V portable [id number] IMPRESSION: No acute findings. No significant change.
--- NOTE | 2023-02-02 20:28 | P.PN_ITS ---
Subjective Subjective: Sitting up at bedside. Reports he is doing well. Denies pain or discomfort, denies any complaints. No headache, vision changes. No numbness or weakness. Vitals/I&O/Wt Last Vital Signs Temp 97.6 F 02/02/23 12:00 Pulse 85 02/02/23 16:00 Resp 22 H 02/02/23 16:00 BP 145/101 02/02/23 16:00 Pulse Ox 92 02/02/23 16:00 O2 Del Method Nasal Cannula 02/02/23 16:00 O2 Flow Rate 4 02/02/23 08:33 02/02/23 02/02/23 02/02/23 06:59 14:59 22:59 Intake Total 180 / 1360 1470 / 1470 70 / 1540 Output Total 600 / 600 1750 / 1750 Balance -420 / 760 1470 / 1470 -1680 / -210 Weight last 48 hrs Weight 101.775 kg Physical Exam Narrative: Accompanied by his on second visit Const: COMMON NORMALS: alert GENERAL APPEARANCE: cooperative ORIENTATION/CONSCIOUSNESS: Yes awake OTHER: Sitting up at edge of bed. HENMT: COMMON NORMALS: oropharynx normal Neck/C-Spine: COMMON NORMALS: no JVD Resp: COMMON NORMALS: normal respiratory effort and clear to auscultation bilaterally AUSCULTATION: clear to auscultation bilaterally Cardio: COMMON NORMALS: no JVD, regular rhythm, S1 normal heart sound present, S2 normal heart sound present and No murmurs present (Cardio) RHYTHM: regular rhythm HEART SOUNDS: S1 normal heart sound present and S2 normal heart sound present GI: COMMON NORMALS: Normal to inspection, nondistended, normoactive bowel sounds present, Soft to palpation and non-tender PALPATION: Yes Soft to palpation Extremity: COMMON NORMALS: no joint enlargement and no pedal edema Neuro: COMMON NORMALS: moves all extremities SENSORIUM/ORIENTATION: Yes alert Skin: COMMON NORMALS: no rashes or lesions noted GENERAL SKIN EXAM: no rashes or lesions noted Urinary Catheter Management: Arango: Cath Placed During This Visit: yes Reason for Continuing Indwelling Catheter: Accurate Measurement of Urinary Output in Critically Ill Patients Urinary Catheter Date of Insertion: 02/01/23 Urinary Catheter Time of Insertion: 13:15 Data 02/02/23 04:10 02/02/23 04:10 A&P Assessment and plan (1) Epilepsia partialis continua, intractable epilepsy, pharmacoresistant: (2) Post-ictal confusion: (3) Breakthrough seizure: (4) Alzheimer's dementia without behavioral disturbance: (5) Atrial fibrillation: Plan 1. Breakthrough seizure with known epilepsy. Resolved. Postictal state has resolved as well. He is awake and alert. Denies any complaints. Discussed with his neurologist, increase Keppra dose to 1500, discussed with his as well. Continue lacosamide. Plan was to return home with follow-up with neurology in office, however, he is quite weak on trying to get up, unsteady on his feet. Per discussion with unable to take a minute home in current condition. PT assessment requested. Reviewed Keppra and Vimpat levels, still pending. 2. Postictal state. Resolved. Resumed oral diet after bedside swallow eval. We will resume some of his home medications. Suspect patient will be in postictal state for many days given history and abnormal brain imaging. Per discussion with his he has had some issues with dysarthria for about 4- 5 months. Additionally overall his health has significantly endocrine recently as well as his cognitive function. He has been more dependent on tasks on others, although has been able to dress and feed himself, usually knows where he is and recognizes family. Dyspnea: Reporting some dyspnea this afternoon, IV fluids were discontinued earlier this morning. Obtained chest x-ray, he is maintaining saturation in the 90s. Takes albuterol at home, added albuterol nebs scheduled and as needed. Monitor oxygenation. Patient is DNR/DNI per statement at outlying facility. Hypertension: Switch to oral metoprolol. Polycythemia: Noted hemoglobin 18.8, RBC 5.72. Stopped IVF. Reassess. Hyperkalemia: Recheck potassium level. At risk of arrhythmia. Monitor on telemetry. Hypothyroidism. Switch to oral levothyroxine. Attestations Medical Necessity Statement*: Continue admission for assessment management following seizure, prolonged post ictal state, currently unsteady gait, at the moment not safe to return home. Diagnoses Epilepsia partialis continua, intractable epilepsy, pharmacoresistant G40.119 Post-ictal confusion F05 Breakthrough seizure G40.919 Alzheimer's dementia without behavioral disturbance G30.9; F02.80 Atrial fibrillation I48.91
[2023-02-03] VITALS (8 sets, daily range): BP systolic 132–161; BP diastolic 81–102; PULSE 84–91; RESP 17–29; TEMP 36.4–37.1; O2SAT 90–96
[2023-02-03 00:10] LABS: ABG PCO2 46.1 mmHg (35-45); ABG PH Result 7.42 (7.35-7.45); Alveolar-Arterial Oxygen Gradi 8.1 mmHg (5-10); Blood Gas Allen Test Pos; Blood Gas Sample Site Radial, right; Blood Gas Sample Type Arterial; Carboxyhemoglobin 1.3 %THgb (0.4-20.1); HCO3 ABG 29.7 mmol/L (22-26); HGB O2 Sat 94.9 % (95-100); Ionized Calcium Level - ABG 1.2 mmol/L (1.1-1.4); Methemoglobin 0.2 % (0.4-1.5); Oxygen Device NC; Oxygen Saturation ABG 96.3; PO2 ABG 80.7 mmHg (80.0-100.0); Total Hemoglobin 19.6 g/dL (14-18)
[2023-02-03] MEDS: valproic acid inj 500 MG in sodium chloride 0.9% 50 ML 55 MG IV (03:23)
--- NOTE | 2023-02-03 03:43 | PC.NURSE ---
Patient woke up and began attempting to get out of bed, appeared very anxious, wanting to leave. Patient stated he was going to call the police to tell them we were holding him here . Patient reoriented to place, time, and situation. Patient educated on risk for falls. Attempts to redirect, distract, were unsuccessful and caused agitation. Hospitalist notified. Orders given for Valproic acid IV Q8 hours. Patient assisted back into bed and repositioned, bed alarm set.
[2023-02-03] MEDS: albuterol 2.5 mg/3 mL Neb INHALATION (03:57)
--- NOTE | 2023-02-03 04:15 | XRR_ITS ---
PROCEDURE INFORMATION: Exam: XR Chest Exam date and time: 02/03/2023 4:24 AM Age: 72 years old Clinical indication: Other: Crackles/wet lung sounds TECHNIQUE: Imaging protocol: Radiologic exam of the chest. Views: 1 view. COMPARISON: CR (CHEST, ) 02/02/2023 5:18 PM FINDINGS: Lungs: Low lung volumes. There is increased interstitial markings and haziness of the lungs, which in the setting of cardiomegaly is suggestive of pulmonary congestion. Pneumonia should be excluded clinically. Pleural spaces: Unremarkable. No pleural effusion. No pneumothorax. Heart/Mediastinum: Stable cardiomediastinal silhouette. Bones/joints: Unremarkable. XR/XR chest 1V portable [id number] IMPRESSION: Imaging findings suggestive of pulmonary congestion. Pneumonia should be excluded clinically.
[2023-02-03] MEDS: lacosamide 200 MG in sodium chloride 0.9% 50 ML 120 MG IV (04:41)
[2023-02-03 04:48] LABS: Basophils % 0.5 %; Eosinophils # 0.1 10^3/uL (0.0-0.8); Eosinophils % 0.8 %; Hematocrit 60.2 % (37-53); Lymphocytes % 11.6 %; Mean Corpuscular HGB Conc 33.7 g/dL (30-55); Mean Corpuscular Hemoglobin 32.4 pg (27-33); Mean Platelet Volume 10.7 fL (7.4-10.4); Monocytes # 1.2 10^3/uL (0.2-0.9); Monocytes % 13.8 %; Neutrophils # 6.32 10^3/uL (1.8-7.7); Nucleated Red Blood Cells % 0 %; Platelet Count 143 10^3/cmm (157-399); Red Blood Count 6.27 10^6/uL (3.85-5.65); Red Cell Distribution Width 13.2 % (12.1-15.1); White Blood Count 8.67 10^3/uL (3.29-11.43)
[2023-02-03 05:11] LABS: Anion Gap 14.8 (5-19); Blood Urea Nitrogen 18 mg/dL (8-23); Calcium 9.9 mg/dL (8.5-10.5); Carbon Dioxide 29 mmol/L (22-29); Chloride 95 mmol/L (98-107); Glucose 108 mg/dL (65-115); Osmolality Calculated 280 mOsm/kg (285-295); Potassium 4.8 mmol/L (3.5-5.1); Sodium 134 mmol/L (136-145)
[2023-02-03] MEDS: atorvastatin 40 mg Tablet PO (08:49)
[2023-02-03] MEDS: metoprolol succinate ER (24 HR) 50 mg Tablet PO (08:49)
[2023-02-03] MEDS: levothyroxine 125 mcg Tablet PO (08:49)
[2023-02-03] MEDS: FUROsemide 20 mg Tablet PO (09:16)
--- NOTE | 2023-02-03 11:39 | PC.NURSE ---
pt is only oriented to himself. pt is awake, able to follow commands, denies any pain. visitor and PT at bedside. pt is sitting up in chair. oxygen 2 L/min NC. call light provided to pt.
--- NOTE | 2023-02-03 13:34 | P.DS_ITS ---
Discharge Providers Date of Admission: 02/01/23 03:30 Date of Discharge: February 03, 2023 Attending Provider at Admission: Sarthak Renteria DO Attending Provider at Discharge: Brian Zazueta Primary Care Provider: Catie Martin Diagnoses at Discharge Discharge Diagnosis (1) Epilepsia partialis continua, intractable epilepsy, pharmacoresistant: Status: Acute (2) Post-ictal confusion: Status: Acute (3) Breakthrough seizure: Status: Acute (4) Alzheimer's dementia without behavioral disturbance: Status: Acute (5) Atrial fibrillation: Status: Acute Reason for Visit 2 Reason for Visit: Seizure and Hypertension Hospital Course Hospital Course Pleasant 72-year-old gentleman with history of epilepsy was admitted after breakthrough seizure, with prolonged postictal state, at outlying hospital also noted hypertensive, as well as TSH noted elevated at 12, she received fos phenytoin and valproate, was continued on Keppra, Vimpat, levels of disease were sent out. Received IV fluid hydration. Received IV medications for blood pressures while n.p.o., IV thyroid hormone. Postictal state eventually resolved, he remains awake and alert, without recurrent seizure. IV fluids continued with resumed oral intake, however, afterwards still get dyspneic, initial chest x-ray unremarkable, but 1 from this morning with some congestive changes noted. Given a dose of Lasix with improvement, did not qualify for home oxygen. Some possibility of aspiration pneumonitis, although he is otherwise afebrile, without leukocytosis, no aspiration pneumonia. Initial plan was to return home with resolution of postictal state was delayed as he was found unsteady on his feet, but with assessment and follow-up by PT he is doing better, instructed to use his walker at all times, and can return home with home health. On discussion with his neurologist, discussed also with his , recommendation to increase his Keppra to 1500 mg twice a day which was recently decreased, continue Vimpat, and he is asked to follow-up with neurology in office for reassessment. Physical Exam Narrative: Sitting up in chair. Accompanied by his . He is awake, alert, in good spirits. Denies any complaints. No pain or discomfort. Const: COMMON NORMALS: patient oriented x3 and alert GENERAL APPEARANCE: cooperative ORIENTATION/CONSCIOUSNESS: Yes awake HENMT: COMMON NORMALS: oropharynx normal Neck/C-Spine: COMMON NORMALS: no JVD Resp: COMMON NORMALS: normal respiratory effort and clear to auscultation bilaterally AUSCULTATION: clear to auscultation bilaterally Cardio: COMMON NORMALS: no JVD, regular rhythm, S1 normal heart sound present, S2 normal heart sound present and No murmurs present (Cardio) RHYTHM: regular rhythm HEART SOUNDS: S1 normal heart sound present and S2 normal heart sound present GI: COMMON NORMALS: Normal to inspection, nondistended, normoactive bowel sounds present, Soft to palpation and non-tender PALPATION: Yes Soft to palpation Extremity: COMMON NORMALS: no joint enlargement and no pedal edema Neuro: COMMON NORMALS: patient oriented x3 and moves all extremities SENSORIUM/ORIENTATION: Yes alert Skin: COMMON NORMALS: no rashes or lesions noted GENERAL SKIN EXAM: no rashes or lesions noted Urinary Catheter Management: Arango: Cath Placed During This Visit: yes Reason for Continuing Indwelling Catheter: Accurate Measurement of Urinary Output in Critically Ill Patients Urinary Catheter Date of Insertion: 02/01/23 Urinary Catheter Time of Insertion: 13:15 Discharge Data Studies Completed and Pending Completed Studies During Hospitalization Category Date Time Status CXRP [XR chest 1V portable [id number]] Stat Exams 02/02/23 17:02 Completed XR chest 1V portable [id number] Stat Exams 02/03/23 04:15 Completed Pending at discharge Category Date Time Status Basic Metabolic Panel AM LABS Lab 02/04/23 04:00 Ordered Complete Blood Count w/Auto AM LABS Lab 02/04/23 04:00 Ordered Lacosamide (Vimpat) Routine Lab 02/01/23 06:08 Received Radiology Impressions Chest X-Ray 02/03/23 04:15 IMPRESSION: Imaging findings suggestive of pulmonary congestion. Pneumonia should be excluded clinically. Laboratory Results WBC 8.67 10^3/uL (3.29-11.43) 02/03/23 04:19 RBC 6.27 10^6/uL (3.85-5.65) H 02/03/23 04:19 Hgb 20.30 g/dL (11.27-16.99) H 02/03/23 04:19 Hct 60.2 % (37-53) H 02/03/23 04:19 MCV 96.0 fl (82-101) 02/03/23 04:19 MCH 32.4 pg (27-33) 02/03/23 04:19 MCHC 33.7 g/dL (30-55) 02/03/23 04:19 RDW 13.2 % (12.1-15.1) 02/03/23 04:19 Plt Count 143 10^3/cmm (157-399) L 02/03/23 04:19 MPV 10.7 fL (7.4-10.4) H 02/03/23 04:19 Neut % (Auto) 73.0 % 02/03/23 04:19 Lymph % (Auto) 11.6 % 02/03/23 04:19 Stewart % (Auto) 13.8 % 02/03/23 04:19 Eos % (Auto) 0.8 % 02/03/23 04:19 Baso % (Auto) 0.5 % 02/03/23 04:19 Neut # (Auto) 6.32 10^3/uL (1.8-7.7) 02/03/23 04:19 Lymph # (Auto) 1.0 10^3/uL (0.8-4.8) 02/03/23 04:19 Stewart # (Auto) 1.2 10^3/uL (0.2-0.9) H 02/03/23 04:19 Eos # (Auto) 0.1 10^3/uL (0.0-0.8) 02/03/23 04:19 Baso # (Auto) 0.0 10^3/uL (0.0-0.1) 02/03/23 04:19 Nucleated RBC % (auto) 0 % 02/03/23 04:19 Nucleated RBCs # 0.0 /100WBC 02/03/23 04:19 Specimen Type Arterial 02/03/23 00:01 Sample Site Radial, right 02/03/23 00:01 ABG pH 7.42 (7.35-7.45) 02/03/23 00:01 ABG pCO2 46.1 mmHg (35-45) H 02/03/23 00:01 ABG pO2 80.7 mmHg (80.0-100.0) 02/03/23 00:01 ABG HCO3 29.7 mmol/L (22-26) H 02/03/23 00:01 ABG O2 Saturation 96.3 02/03/23 00:01 ABG Base Excess 4.0 mmol/L (-2.0-2.0) H 02/03/23 00:01 Gonzalo Test Pos 02/03/23 00:01 A-a O2 Gradient 8.1 mmHg (5-10) 02/03/23 00:01 Hematocrit 60.0 % (42-52) H 02/03/23 00:01 Hgb O2 Saturation 94.9 % (95-100) L 02/03/23 00:01 Carboxyhemoglobin 1.3 %THgb (0.4-20.1) 02/03/23 00:01 Methemoglobin 0.2 % (0.4-1.5) L 02/03/23 00:01 Total Hemoglobin 19.6 g/dL (14-18) H 02/03/23 00:01 Sodium 134.0 mmol/L (131-143) 02/03/23 00:01 Potassium 4.0 mmol/L (3.5-5.0) 02/03/23 00:01 Glucose 104.0 mg/dL (70-115) 02/03/23 00:01 Ionized Calcium 1.2 mmol/L (1.1-1.4) 02/03/23 00:01 O2 Delivery Device Nc 02/03/23 00:01 O2 Liters/Min 2.0 % 02/03/23 00:01 FiO2 28.0 % 02/03/23 00:01 Facility Manager Histology ID [email or web address] 02/03/23 00:01 Sodium 134 mmol/L (136-145) L 02/03/23 04:19 Potassium 4.8 mmol/L (3.5-5.1) 02/03/23 04:19 Chloride 95 mmol/L (98-107) L 02/03/23 04:19 Carbon Dioxide 29 mmol/L (22-29) 02/03/23 04:19 Anion Gap 14.8 (5-19) 02/03/23 04:19 BUN 18 mg/dL (8-23) 02/03/23 04:19 Creatinine 1.2 mg/dL (0.7-1.2) 02/03/23 04:19 GFR Calculation Not Reportable 02/03/23 04:19 Glucose 108 mg/dL (65-115) 02/03/23 04:19 Calculated Osmolality 280 mOsm/kg (285-295) L 02/03/23 04:19 Lactic Acid 1.0 mmol/L (0.5-2.2) 02/01/23 06:08 Calcium 9.9 mg/dL (8.5-10.5) 02/03/23 04:19 Phosphorus 2.1 mg/dL (2.5-4.5) L 02/02/23 04:10 Magnesium 1.9 mg/dL (1.7-2.3) 02/01/23 06:08 Total Bilirubin 0.7 mg/dL (0.15-1.2) 02/01/23 06:08 AST 19 U/L (0-40) 02/01/23 06:08 ALT 15 U/L (0-41) 02/01/23 06:08 Alkaline Phosphatase 70 U/L (40-130) 02/01/23 06:08 Creatine Kinase 51 U/L (39-308) 02/01/23 06:08 Total Protein 7.4 g/dL (6.6-8.7) 02/01/23 06:08 Albumin 4.5 g/dL (3.5-5.2) 02/01/23 06:08 Globulin 2.9 g/dL (1.3-4.6) 02/01/23 06:08 Valproic Acid 2.8 ug/mL (50-100) L 02/01/23 06:08 Levetiracetam 32.1 mcg/mL (6.0-46.0) 02/01/23 06:08 Vitals Last Vital Signs Temp 97.6 F 02/03/23 11:48 Pulse 88 02/03/23 11:48 Resp 29 H 02/03/23 11:48 BP 137/93 02/03/23 11:48 Pulse Ox 96 02/03/23 08:00 O2 Del Method Nasal Cannula 02/03/23 08:00 O2 Flow Rate 2 02/03/23 08:00 Discharge Plan Discharge Patient Disposition: Home Health Service Condition: Stable Prescriptions: New levothyroxine [Synthroid] 137 mcg tablet 137 mcg PO DAILY Qty: 30 0RF levetiracetam [Keppra] 750 mg tablet 1,500 mg PO BID Qty: 60 0RF Continued apixaban 5 mg tablet 5 mg PO BID galantamine 8 mg tablet 8 mg PO BID Qty: 60 5RF Rx Instructions: administer with AM and PM meals lacosamide [Vimpat] 200 mg tablet 200 mg PO BID Qty: 180 1RF (DME) Wrist Brace Large Misc See Rx Instructions .Route Qty: 1 0RF Rx Instructions: As directed albuterol sulfate [ProAir HFA] 90 mcg/actuation Hfa Aerosol Inhaler 2 puff INHALATION Q6H PRN (Reason: Shortness Of Breath) metoprolol succinate 50 mg tablet extended release 24 hr 50 mg PO DAILY Qty: 30 3RF atorvastatin 40 mg Tablet 40 mg PO DAILY Discontinued levetiracetam [Keppra] 1,000 mg tablet 1,000 mg PO BID Qty: 180 3RF Synthroid 125 mcg Tablet 125 mcg PO DAILY Discharge Orders: Discharge Order (Routine); Ordered 02/03/23 Ordered By: Brian Zazueta Referrals: Lisa Mccallum MD [Physician] - 1 week (Breakthrough sz) Catie Martin APRN [Primary Care Provider] - 4-7 days Discharge Activity: Use walker/crutches as instructed and As per PT/OT instructions Patient Instructions: Levetiracetam (By mouth), Lacosamide (By mouth), Epilepsy (GEN), Opioid Safety Activity Restrictions/Additional Instructions: Continue lacosamide, and as discussed Keppra dose was increased up to 1500 mg twice a day. Please follow-up with neurology for reassessment of epilepsy with breakthrough seizure. Please follow-up with your primary provider for reassessment of transient fluid overload possible aspiration pneumonitis, and reassessment of recovery after breakthrough seizure. Please follow-up with your primary doctor also for reassessment of abnormal cell counts with chronically elevated hemoglobin, mildly low platelets. Please have your primary provider follow-up your thyroid function. Return for reassessment in case of any worsening of condition or any new concerning symptoms. Discharge Attestations Time Spent in Discharge Care*: greater than 30 min Status at Discharge: Cognitive status at discharge: cognitively intact , Behavioral status at discharge: cooperative , Quality Metrics Clinical Quality Measures [ No reported AMI, CVA or VTE this stay] Coding Level of Care Code 06796 Total time (in minutes) for Discharge: 45 Diagnoses Epilepsia partialis continua, intractable epilepsy, pharmacoresistant G40.119 Post-ictal confusion F05 Breakthrough seizure G40.919 Alzheimer's dementia without behavioral disturbance G30.9; F02.80 Atrial fibrillation I48.91
--- NOTE | 2023-02-03 15:35 | PC.NURSE ---
report called to pharmacy wants me to call his new Rx to [facility]. [facility]
[2023-03-01 16:46] LABS: Lacosamide (Vimpat) 15.1
== END 2023-02-03 15:27 | disposition home health service (06) | DRG 101 ==
PROVIDERS: Admitting Provider Internal Medicine; PCP Nurse Practitioner; Visit Provider Internal Medicine
DX: G40.119 Localization-related (focal) (partial) symptomatic epilepsy and epileptic syndromes with simple partial seizures, intractable, without status epilepticus (principal); G30.9 Alzheimer's disease, unspecified; F02.80 Dementia in other diseases classified elsewhere, unspecified severity, without behavioral disturbance, psychotic disturbance, mood disturbance, and anxiety; I10 Essential (primary) hypertension; Z79.51 Long term (current) use of inhaled steroids; I48.91 Unspecified atrial fibrillation; J44.9 Chronic obstructive pulmonary disease, unspecified; E03.9 Hypothyroidism, unspecified; Z87.891 Personal history of nicotine dependence; Z66 Do not resuscitate; D69.6 Thrombocytopenia, unspecified; E87.5 Hyperkalemia
CPT/HCPCS: 36415; 36600; 51702; 71045; 80048; 80051; 80053; 80164; 80177; 80299; 82330; 82550; 82805; 83605; 83735; 84100; 84132; 85025; 94640; 94664; 94760; 96372; 96376; 97116; 97161; 97530; C9254; J1650; J1953; J3490; J7613; J7799; Q2009

== ENCOUNTER → 2023-02-08 12:38 | Outpatient (BNVA) | payer OTHER, MEDICARE, SELFPAY | PROVIDERS: PCP Nurse Practitioner; Visit Provider Specialist | DX: G40.119 Localization-related (focal) (partial) symptomatic epilepsy and epileptic syndromes with simple partial seizures, intractable, without status epilepticus (principal); G40.919 Epilepsy, unspecified, intractable, without status epilepticus; G30.9 Alzheimer's disease, unspecified; F02.80 Dementia in other diseases classified elsewhere, unspecified severity, without behavioral disturbance, psychotic disturbance, mood disturbance, and anxiety; G40.802 Other epilepsy, not intractable, without status epilepticus | CPT/HCPCS: 99215 ==

== ENCOUNTER → 2023-05-25 12:52 | Outpatient (BNVA) | payer OTHER, MEDICARE, SELFPAY | PROVIDERS: PCP Nurse Practitioner; Visit Provider Specialist | DX: G40.119 Localization-related (focal) (partial) symptomatic epilepsy and epileptic syndromes with simple partial seizures, intractable, without status epilepticus (principal) | CPT/HCPCS: 99214 ==

== ENCOUNTER → 2023-11-30 12:07 | Outpatient (BNVA) | payer OTHER, SELFPAY | PROVIDERS: PCP Nurse Practitioner; Visit Provider Specialist | DX: G40.119 Localization-related (focal) (partial) symptomatic epilepsy and epileptic syndromes with simple partial seizures, intractable, without status epilepticus (principal); G30.9 Alzheimer's disease, unspecified; F02.80 Dementia in other diseases classified elsewhere, unspecified severity, without behavioral disturbance, psychotic disturbance, mood disturbance, and anxiety; F05 Delirium due to known physiological condition; G40.802 Other epilepsy, not intractable, without status epilepticus | CPT/HCPCS: 99214 ==

== ENCOUNTER → 2024-05-23 14:09 | Outpatient (BNVA) | payer OTHER, SELFPAY | PROVIDERS: PCP Nurse Practitioner; Visit Provider Specialist | DX: G40.119 Localization-related (focal) (partial) symptomatic epilepsy and epileptic syndromes with simple partial seizures, intractable, without status epilepticus; G30.9 Alzheimer's disease, unspecified; F02.80 Dementia in other diseases classified elsewhere, unspecified severity, without behavioral disturbance, psychotic disturbance, mood disturbance, and anxiety; F05 Delirium due to known physiological condition; G40.802 Other epilepsy, not intractable, without status epilepticus; R26.9 Unspecified abnormalities of gait and mobility | CPT/HCPCS: 99214 ==

== ENCOUNTER → 2024-11-21 13:38 | Outpatient (BNVA) | payer OTHER, SELFPAY | PROVIDERS: PCP Nurse Practitioner; Visit Provider Specialist | DX: G40.919 Epilepsy, unspecified, intractable, without status epilepticus (principal); G40.119 Localization-related (focal) (partial) symptomatic epilepsy and epileptic syndromes with simple partial seizures, intractable, without status epilepticus; G30.9 Alzheimer's disease, unspecified; F02.80 Dementia in other diseases classified elsewhere, unspecified severity, without behavioral disturbance, psychotic disturbance, mood disturbance, and anxiety; F05 Delirium due to known physiological condition; G40.802 Other epilepsy, not intractable, without status epilepticus; R26.9 Unspecified abnormalities of gait and mobility | CPT/HCPCS: 99214 ==